=== PATIENT | female | born 1945 | race Caucasian/White ===

== ENCOUNTER 2020-02-08 09:33 | Outpatient (CLI) | payer MEDICARE, SELFPAY ==
--- NOTE | ~2020-02-08 | MM_ITS ---
EXAMINATION: MM screening [facility] BI w heri HISTORY: Screening mammogram TECHNIQUE: Craniocaudal and mediolateral oblique 3-D tomosynthesis images were obtained and synthetic 2-D images were generated. CAD analysis was submitted and interpreted. COMPARISON: 09/07/2017, 08/16/2016, 06/20/2015 BREAST PARENCHYMAL COMPOSITION: There are scattered areas of fibroglandular density. FINDINGS: There is no evidence of suspicious mass, calcification, or architectural distortion to sugg est malignancy in either breast. There has been no suspicious interval change. IMPRESSION: 1. No mammographic evidence of malignancy. 2. Recommend routine screening mammography in one year. BI-RADS Category 1: Negative Reviewed, dictated and finalized at location A.
== END 2020-02-08 09:34 | disposition home or self-care (01) ==
PROVIDERS: PCP Internal Medicine; Visit Provider Internal Medicine
DX: Z12.31 Encounter for screening mammogram for malignant neoplasm of breast (principal)
CPT/HCPCS: 77063; 77067

== ENCOUNTER 2022-11-24 11:26 | Outpatient (CLI) | payer MEDICARE, SELFPAY ==
--- NOTE | ~2022-11-24 | XR_ITS ---
EXAMINATION: XR hip RT min 2V DATE: 11/24/2022 11:54 INDICATION: Right hip pain TECHNIQUE: Two views of right hip were obtained. COMPARISON: 06/04/2019 FINDINGS: Bone alignment is normal. There is no fracture. The soft tissues are unremarkable. There is mild osteoarthritis of the hip. IMPRESSION: 1. Mild osteoarthritis of the hip. Reviewed, dictated and finalized at location B.
--- NOTE | ~2022-11-24 | XR_ITS ---
EXAMINATION: XR hand RT min 3V INDICATION: Right hand pain TECHNIQUE: Two views of the right hand are obtained. COMPARISON: 06/14/2017 FINDINGS: There is advanced osteoarthritis of the second, third, and fifth distal interphalangeal ghislaine nts and the fifth proximal interphalangeal joint, as well as at the triscaphe and first carpometacarp al joints, with interval worsening. There is mild to moderate osteoarthritis of the second third and fourth proximal interphalangeal joints and the fourth distal interphalangeal joint. No fracture is id entified. The soft tissues are unremarkable. IMPRESSION: 1. Polyarticular osteoarthritis with interval worsening. Reviewed, dictated and finalized at location B.
--- NOTE | ~2022-11-24 | XR_ITS ---
EXAMINATION: XR hand LT min 3V INDICATION: Left hand pain TECHNIQUE: Three views of the left hand are obtained COMPARISON: 06/14/2017 FINDINGS: There is advanced osteoarthritis at the second through fifth distal interphalangeal joints with interval worsening. There is also worsened severe osteoarthritis of the triscaphe joint. Moderat e osteoarthritis is present at the first carpometacarpal joint. The soft tissues are unremarkable. No fracture is identified. IMPRESSION: 1. Polyarticular osteoarthritis with interval worsening. Reviewed, dictated and finalized at location B.
== END 2022-11-24 11:27 | disposition home or self-care (01) ==
LOC: CHSIMG 11:30
PROVIDERS: PCP Internal Medicine; Visit Provider Internal Medicine
DX: M79.642 Pain in left hand (principal); M79.641 Pain in right hand; M25.551 Pain in right hip; M19.042 Primary osteoarthritis, left hand; M19.041 Primary osteoarthritis, right hand; M16.11 Unilateral primary osteoarthritis, right hip
CPT/HCPCS: 73130; 73502

== ENCOUNTER 2022-12-07 12:37 | Outpatient (CLI) | payer MEDICARE, SELFPAY ==
--- NOTE | ~2022-12-07 | XR_ITS ---
EXAMINATION: XR lg joint inject/asp w image DATE: 12/07/2022 13:35 INDICATION: Right hip pain TECHNIQUE: A time-out was performed to verify the patient's name, date of , and procedure to b e performed. The procedure including the risks, benefits, and alternatives was discussed with the pat ient. Risks discussed included bleeding and infection. The patient understood the risks and agreed to proceed. The skin overlying the right hip joint was prepped and draped in usual sterile fashion. A nesthetic was administered with 1% lidocaine subcutaneously. A 22 G needle was advanced under fluoro scopic guidance into the joint. Injection of 1 mL of Omnipaque 240 confirmed intra-articular positio n of the needle. Subsequently, injectate consisting of 5 mm a 3:1:1 mixture of 1% lidocaine: 4 mg/mL dexamethasone and 40 mg/mL Kenalog for a total dosage of 4 mg dexamethasone and 40 mg Kenalog was in stilled. Washout of contrast was seen confirming intra-articular administration. The needle was remov ed and the entry site was cleaned and dressed. There were no immediate complications. Fluoroscopy ex posure time was 0.1 minutes. The total number of images was 2. FINDINGS: Real-time fluoroscopy demonstrates the needle in the right hip joint. Patient's pain prior to procedure:12/08. Patient's pain following the procedure: 08/10. IMPRESSION: 1. Successful right hip joint injection of local anesthetic and steroid with decrease in the patient' s presenting pain. Reviewed, dictated and finalized at location A. IMPRESSION: 1. Successful right hip joint injection of local anesthetic and steroid with de crease in the patient's presenting pain.
== END 2022-12-07 12:38 | disposition home or self-care (01) ==
PROVIDERS: PCP Internal Medicine; Visit Provider Internal Medicine
DX: M25.551 Pain in right hip (principal)
CPT/HCPCS: 20610; 77002; J1100; J3301; Q9966

== ENCOUNTER 2023-04-19 13:01 | Outpatient (CLI) | payer MEDICARE, SELFPAY ==
[2023-04-19 13:42] LABS: Hematocrit 41.7 % (37.0-47.0); Hemoglobin 13.3 g/dL (12.0-15.0)
[2023-04-19 13:52] LABS: Albumin Level 4.5 g/dL (3.5-5.1); Estimated Glomerular Filt Rate > 60
[2023-04-19 14:05] LABS: Urine Cotinine NEGATIVE
== END 2023-04-19 13:02 | disposition home or self-care (01) ==
PROVIDERS: PCP Internal Medicine; Visit Provider Orthopaedic Surgery
DX: E78.5 Hyperlipidemia, unspecified (principal); I10 Essential (primary) hypertension; M16.11 Unilateral primary osteoarthritis, right hip; Z79.899 Other long term (current) drug therapy
CPT/HCPCS: 80307; 82040; 82565; 85014; 85018

== ENCOUNTER 2023-05-05 13:47 | Outpatient (CLI) | payer MEDICARE, SELFPAY ==
[2023-05-05 15:27] LABS: Basophils Percent Auto 0.2 % (0.2-1.2); Eosinophils Absolute Auto 0.3 K/mm3 (0-0.3); Eosinophils Percent Auto 2.4 % (0-4.4); Hematocrit 41.6 % (37.0-47.0); Hemoglobin 13.2 g/dL (12.0-15.0); Immature Granulocyte Absolute 0.06 K/mm3 (0.00-0.031); Immature Granulocyte Percent A 0.5 % (0-0.5); Lymphocytes Absolute Auto 1.75 K/mm3 (0.9-3.2); Lymphocytes Percent Auto 14.6 % (18.3-44.2); Mean Corpuscular HGB Conc 31.7 g/dl (32-36); Mean Corpuscular Hemoglobin 30.2 pg (26-34); Mean Corpuscular Volume 95.2 fl (80-100); Mean Platelet Volume 10.5 fl (7.4-10.4); Monocytes Absolute Auto 0.8 K/mm3 (0.1-0.6); Monocytes Percent Auto 6.6 % (2.6-8.5); Neutrophils Absolute Auto 9.1 K/mm3 (1.3-6.7); Neutrophils Percent Auto 75.7 % (45.5-73.1); Platelet Count Result 264 k/mm3 (150-375); Red Blood Count 4.37 M/mm3 (4.2-5.4); Red Cell Distribution Width 13.4 % (11.5-14.5)
[2023-05-05 15:30] LABS: Glucose 143 mg/dL (65-110)
[2023-05-05 18:24] LABS: Hemoglobin A1C 6.1 % (<5.7)
== END 2023-05-05 13:48 | disposition home or self-care (01) ==
PROVIDERS: PCP Internal Medicine; Visit Provider Orthopaedic Surgery
DX: M16.11 Unilateral primary osteoarthritis, right hip (principal); Z01.818 Encounter for other preprocedural examination
CPT/HCPCS: 36415; 82947; 83036; 85025; 87081

== ENCOUNTER 2023-05-30 01:22 | Day surgery (SDC) | payer MEDICARE, SELFPAY ==
[2023-05-05 14:19] VITALS: BMI 38.6
--- NOTE | 2023-05-05 14:40 | PC.NURSE ---
Report to the Outpatient Waiting Room, entrance under the green pavilion located off [facility], at time __1000 on date __05/30/23 . Planned Procedure Time: 1200 . Time changes happen often and if your time is changed the preop area will call you the afternoon before. - You and your visitor will be asked to self-screen and do not enter if you have any COVID symptoms. - A mask is optional within the hospital at this time. Patients may have clear liquids (water, carbonated beverages, clear teas, apple juice) until 3 hours prior to surgery with a maximum of 20 ounces. - No food from midnight until time of surgery - Infants may have breast milk until 4 hours before surgery, formula 6 hours prior to surgery. - Children will be allowed to drink immediately following surgery. If applicable, please bring a bottle or sippy cup to assist with drinking. Juice, water, soda, and popsicles are readily available. For infants on formula, please bring formula the day of surgery. Pacifiers are allowed. Take the following medications with a SIP of water the morning of surgery: ___DILTIAZEM.LEVOTHYROXINE DO NOT STOP ANY OF YOUR OTHER PRESCRIPTION MEDICATIONS PRIOR TO SURGERY ?EXCEPT THE FOLLOWING Medications to discontinue per physician _HOLD ELIQUIS 3 DAYS PRE OP PER DR BRICE. LAST DOSE 05/26/23 MAY CONTINUE ASPIRIN PER DR BRICE. ALL VITAMINS AND SUPPLEMENTS 3 DAYS PRE OP.LAST DOSE 05/26/23 Please no make-up, nail czech, hairspray, perfume, deodorant, or body powder the day of surgery. No jewelry (including any body piercings) or valuables the day of surgery, leave them at home. Please take a shower or bath the night before, or the morning of, surgery with an antibacterial soap. Wear comfortable, loose fitting clothing. Children are encouraged to wear pajamas. - Jewelry must be removed prior to entering the operating room. Rings and piercings that are not removed may be cut off. - The hospital will not accept responsibility for valuables. - Please leave all valuables, including medications, at home the day of surgery. If you are going home after surgery, a licensed marine engine driver must drive you home. - NO public transportation without another adult if you receive anesthesia. - We recommend that an adult stay with you for 24 hours following discharge. - We also recommend that you do not drive, make important decision, drink alcoholic beverages, or take any drugs that were not prescribed by your health care provider for at least 24 hours after your discharge time. For Pediatric surgeries, we recommend two adults accompany the child home. Follow any additional instructions given to you from your surgeon. If you or anyone in your household have experienced Covid symptoms in the past week, please notify your surgeon or the nurse liaison at the phone number below for possible testing. VERBAL AND WRITTEN instructions given to ___PATIENT and asked if any additional questions and then verbalized understanding. Patient advised to call surgeon office or pre surgery nurse liaison [phone] if any additional questions.
[2023-05-05 15:07] VITALS: BP 135/50; PULSE 71; RESP 18; TEMP 36.6; O2SAT 97
[2023-05-30] VITALS (14 sets, daily range): BP systolic 104–164; BP diastolic 52–85; PULSE 55–85; RESP 12–18; TEMP 36.2–37.1; O2SAT 93–96
--- NOTE | ~2023-05-30 | XR_ITS ---
EXAMINATION: XR hip RT min 2V DATE: 05/30/2023 15:22 INDICATION: Right total hip arthroplasty TECHNIQUE: 3 views right hip FINDINGS: There is a right total hip arthroplasty in expected position. Subcutaneous gas with soft t issue swelling are consistent with recent surgery. IMPRESSION: 1. Recent right total hip arthroplasty. Reviewed, dictated and finalized at location A.
[2023-05-30] MEDS: TRANEXAMIC ACID 1,000MG/ISO100 1,000 MG/100 ML BAG 200 MG IVPB (11:00)
[2023-05-30] MEDS: ACETAMINOPHEN 500 MG TABLET 1000 MG PO ×2 (11:00→17:49)
--- NOTE | 2023-05-30 12:02 | WPDHPUPDATE1 ---
History and Physical Update Update Date/Time: 05/30/23 12:02 History and Physical has been reviewed, including an updated exam of the patient. There are NO changes in the patient's condition. Risks, benefits, and alternatives have been discussed and questions answered. Patient agrees to proceed with procedure.
--- NOTE | 2023-05-30 12:12 | WPDANESEPPF ---
Anes - Initial Pre Proc Eval Procedure: Operation Date: 05/30/23 12:00 Proposed Procedures p Right Total Hip Arthroplasty - Wade Trevizo MD Date/Time: 05/30/23 12:12 Surgeon: Wade Trevizo MD Pre Op Diagnosis: primary oa right hip Patient Data Age: 78 Gender: F Height: 1.65 m Weight: 105.6 kg Last Vital Signs Temp 36.3 C L 05/30/23 11:30 Pulse 66 05/30/23 11:30 Resp 16 05/30/23 11:30 BP 164/71 H 05/30/23 11:30 Pulse Ox 96 05/30/23 11:30 O2 Del Method Room Air 05/30/23 11:30 Allergies Allergy/AdvReac Type Severity Reaction Status Date / Time tramadol AdvReac Intermediate Other Verified 05/30/23 11:52 ciprofloxacin AdvReac Unknown Diarrhea Verified 05/16/23 11:03 Home Medications Medication Instructions Recorded Confirmed Type apixaban 5 mg tablet (Eliquis) 5 mg PO BID 12/16/22 05/30/23 History celecoxib 200 mg capsule 200 mg PO DAILY 12/16/22 05/16/23 History diltiazem HCl 180 mg 180 mg PO BID 12/16/22 05/16/23 History capsule,extended release 24 hr (Cartia XT) ezetimibe 10 mg tablet 10 mg PO DAILY 12/16/22 05/16/23 History levothyroxine 50 mcg capsule 50 mcg PO DAILY 12/16/22 05/16/23 History losartan 50 mg-hydrochlorothiazide 1 tablet PO DAILY 12/16/22 05/16/23 History 12.5 mg tablet pantoprazole 40 mg tablet,delayed 40 mg PO BID 12/16/22 05/16/23 History release pravastatin 40 mg tablet 40 mg PO HS 12/16/22 05/16/23 History pumpkin seed extract-soy germ 300 1 cap PO BID 12/16/22 05/16/23 History mg capsule (Azo Bladder Control) aspirin 81 mg tablet,delayed 81 mg PO DAILY 05/05/23 05/30/23 History release (Adult Low Dose Aspirin) diphenhydramine 25 1 tablet PO HS PRN Insomnia 05/05/23 05/16/23 History mg-acetaminophen 500 mg tablet (Tylenol PM Extra Strength) vitamin A-vitamin C-vit E-min 1 tablet PO DAILY 05/05/23 05/16/23 History tablet Patient hx anesthesia problems: post op nausea/vomiting Family hx anesthesia problems: none Results Review: All pre-operative results and documents have been reviewed as part of the pre-operative evaluation. FOR[facility]LY [facility] Past Medical History Medical History Afib History of bruising easily History of stress test Hyperlipidemia Hypertension Surgical History Surgical History History of back surgery (~07/2022) History of total right knee replacement (~09/05/18) Family History Family History Mother Family history of diabetes mellitus in first degree relative Heart disease Cancer Social History Social History Smoking packs per day: 0.5 Smoking cigarettes per day: 10.0 Years smoked: 5 Smoking pack-years: 2.50 Smoking status: Former smoker Tobacco type: cigarettes Smoking end date: 08/01/79 Additional smoking assessment comments: DENIES ANY FORM OF TOBACCO USE Alcohol intake: never Lack of Transportation: No Lack of Food: Never True Current Housing: I Have Housing Concerned About Future Housing: No Difficulty Paying Gas/Electric Bills: No Difficulty Paying for Meds: No Currently Unemployed: No Education: High School Diploma/GED Difficulty w/ Childcare or Family Care: No Living arrangements: alone Spiritual care concerns: No Anes - Eval Final PreProcedure Day of Procedure 05/30/23 12:12 Patient weight: obese Heart: regular rate and rhythm Lungs: clear to auscultation Airway: Mallampati scale class II Neurological: alert and oriented Last oral intake: >/= 8 hours ASA classification: III Emergent: no Anesthetic plan: proceed Anesthesia type and monitoring: general ETT and standard monitoring Results Review: All pre-operative results and documents have been reviewed as part of the pre-operative evaluation. In
[2023-05-30] MEDS: ceFAZolin 2 GM/D5W 50 ML 2 GM/50 ML BAG IVPB ×2 (12:23→21:50)
--- NOTE | 2023-05-30 14:37 | SUR.OPER ---
PATIENT TO RESTROOM IN PREOP SHUFFLES AND NEEDS ASSISTANCE. FEET = +4 STRENGTH/+ SENSATION ALL TOES BILATERAL. STATED HER RIGHT LEG WAS AFFECTED BY HER BACK SURGERY. Ted MORRIS RN
[2023-05-30] MEDS: LACTATED RINGERS 1,000 ML 30 ML IV CONT ×2 (15:02)
[2023-05-30] MEDS: fentaNYL CITRATE INJ (*CRX) 100 MCG/2 ML VIAL 25 MCG IV PUSH ×2 (15:40→15:57)
[2023-05-30] MEDS: SENNA/DOCUSATE SODIUM TABLET 2 TAB PO (17:49)
[2023-05-30] MEDS: PANTOPRAZOLE 40 MG TABLET PO (17:49)
[2023-05-30] MEDS: dilTIAZem HCL CD 180 MG CAP.24HR PO (17:49)
--- NOTE | 2023-05-30 18:24 | W.PM.PROC2 ---
Procedure Note - Detailed Date of Procedure 05/30/23 Pre-op Diagnosis primary oa right hip Post-op Diagnosis Same Procedure Performed Right Total Hip Arthroplasty Surgeon Wade Trevizo MD Project Associate Judi Zelaya PA-C Anesthesia General Findings Satisfactory bone quality. Description of Procedure The patient was given preoperative antibiotics. A general anesthetic was administered. The patient was carefully placed in the lateral decubitus position on the PEG board. The shoulders and hips were carefully positioned for component and leg length positioning reference. The hip was prepped and draped in the usual sterile fashion. A longitudinal incision was created over the posterior aspect of the greater trochanter. Careful dissection was brought down through the deep fascia with electrocautery. A minimally invasive optimized posterior approach to the hip was performed. The short external rotators and capsule were taken down in an L-shaped capsulotomy. The tissue was tagged for later repair using number 2 high strength suture. The femoral neck was measured and taken in situ. The femoral head was removed. The acetabulum was carefully exposed. The inferior capsule was released. The labrum was resected. The acetabulum was sequentially reamed to the intended cup size. The cup was impacted into position with excellent press-fit. Typical anatomic landmarks, including the bony contact points as well as the inferior transverse acetabular ligament were used to confirm cup positioning with preoperative templating. Attention was turned to the femur, which was carefully exposed. The hip was reamed and then broached sequentially. Excellent press-fit was obtained with the broach. The hip was trialed. Measurements were utilized, including the lesser trochanter as well as the center of the femoral head and the tip of the trochanter, and excellent assessment of the offset and leg lengths were confirmed. The real component was impacted into position. Trialing confirmed appropriate leg length and offset with soft tissue balancing as well apparent feel of the leg, both at the knee and the heel. Soft tissues were assessed using the the iliotibial band. Reduction of the posterior capsule and external rotators were also used as a secondary assessment. The hip was copiously irrigated with pulsatile lavage antibiotic solution periodically throughout the procedure. The real components were then assembled and reduced. The hip was stable throughout typical maneuvers, including extension, external rotation to 70 degrees, the position of sleep as well as flexion to 90 degrees with internal rotation past 45 degrees. The shake test confirmed stability without impingement. Osteophytes were removed as necessary. The short external rotators and capsule were repaired back to the posterior trochanter through drill holes. The deep fascia was repaired with running number 2 Quill suture, followed by 0 Stratafix suture and 2-0 Stratafix suture in the dermis. Steri-Strips were placed on the skin, followed by a sterile silver occlusive dressing. There were no complications. Meticulous hemostasis was maintained with the AquaMantys device. The patient was brought to the recovery room in stable condition. There were no complications. Physician accounting manager assistant controller, Judi Zelaya PA-C, required for surgery; including patient positioning, draping, tissue retraction, maintaining instrument position, hip dislocation/ relocation, wound closure, and dressing placement. Implants The Accolade II hip stem, 127 degree size 7 , was utilized with excellent press-fit. The 50 mm Trident II acetabular component was impacted with excellent press-fit stability. 36 mm polyethylene liner. Alpha code D. the +2.5, 36 mm Biolox ceramic femoral head was utilized. Estimated Blood Loss -200.0 Drains No Packing No Pathology None sent Complications No immediate complications Condition Stable Dispos
[2023-05-30] MEDS: PRAVASTATIN SODIUM 20 MG TABLET 40 MG PO (21:50)
[2023-05-31 01:06] VITALS: BP 138/75; PULSE 92; RESP 16; TEMP 36.9; O2SAT 92
[2023-05-31] MEDS: ceFAZolin 2 GM/D5W 50 ML 2 GM/50 ML BAG IVPB ×2 (03:05→11:00)
[2023-05-31] MEDS: LEVOTHYROXINE SODIUM 50 MCG TABLET PO (05:42)
[2023-05-31] MEDS: ACETAMINOPHEN 500 MG TABLET 1000 MG PO ×2 (05:43→11:04)
[2023-05-31 06:00] VITALS: BP 179/66; PULSE 78; RESP 16; TEMP 36.9; O2SAT 95
[2023-05-31 08:00] VITALS: BP 122/78; PULSE 81; RESP 18; TEMP 36.1; O2SAT 96
[2023-05-31] MEDS: dilTIAZem HCL CD 180 MG CAP.24HR PO (08:46)
[2023-05-31] MEDS: SENNA/DOCUSATE SODIUM TABLET 2 TAB PO (08:46)
[2023-05-31] MEDS: THERAPEUTIC MULTIVITAMINS/MINERALS TAB (*BKC) 1 TABLET PO (08:46)
[2023-05-31] MEDS: EZETIMIBE 10 MG TABLET PO (08:46)
[2023-05-31] MEDS: ASPIRIN 81 MG ENTERIC TABLET PO (08:46)
[2023-05-31] MEDS: CELECOXIB 200 MG CAPSULE PO (08:46)
[2023-05-31] MEDS: hydroCHLOROthiazide 12.5 MG CAPSULE PO (08:46)
[2023-05-31] MEDS: predniSONE 5 MG TABLET PO (08:46)
[2023-05-31] MEDS: PANTOPRAZOLE 40 MG TABLET PO (08:46)
[2023-05-31] MEDS: polyethylene glycoL 3350 17 GM POWD.PACK PO (08:47)
[2023-05-31] MEDS: LOSARTAN POTASSIUM 50 MG TABLET PO (08:57)
[2023-05-31 09:12] LABS: Basophils Percent Auto 0.1 % (0.2-1.2); Eosinophils Percent Auto 0.1 % (0-4.4); Hematocrit 34.3 % (37.0-47.0); Hemoglobin 10.9 g/dL (12.0-15.0); Immature Granulocyte Absolute 0.13 K/mm3 (0.00-0.031); Immature Granulocyte Percent A 0.7 % (0-0.5); Lymphocytes Absolute Auto 1.26 K/mm3 (0.9-3.2); Lymphocytes Percent Auto 6.9 % (18.3-44.2); Mean Corpuscular HGB Conc 31.8 g/dl (32-36); Mean Corpuscular Hemoglobin 29.7 pg (26-34); Mean Corpuscular Volume 93.5 fl (80-100); Mean Platelet Volume 10.7 fl (7.4-10.4); Monocytes Absolute Auto 1.8 K/mm3 (0.1-0.6); Monocytes Percent Auto 9.7 % (2.6-8.5); Neutrophils Absolute Auto 15.1 K/mm3 (1.3-6.7); Neutrophils Percent Auto 82.5 % (45.5-73.1); Platelet Count Result 238 k/mm3 (150-375); Red Blood Count 3.67 M/mm3 (4.2-5.4); Red Cell Distribution Width 13.6 % (11.5-14.5); White Blood Count 18.3 K/mm3 (4.5-10.0)
[2023-05-31 09:16] LABS: Anion Gap 5 mmol/L (8-16); Blood Urea Nitrogen 18 mg/dL (7-17); Calcium 8.9 mg/dL (8.4-10.2); Carbon Dioxide 32 mmol/L (22-30); Chloride 99 mmol/L (98-107); Estimated CRCL calculation 81 ml/min; Estimated Glomerular Filt Rate > 60; Glucose 120 mg/dL (65-110); Potassium 4.3 mmol/L (3.4-5.0); Sodium 136 mmol/L (137-145)
--- NOTE | 2023-05-31 10:07 | PM.DS ---
DS: Admitting Diagnosis Discharge Date 05/31/23 Admitting Diagnosis OA Right hip DS: Discharge Diagnosis Discharge Diagnosis (1) Status post total hip replacement, right: Code(s): Z96.641 - Presence of right artificial hip joint Status: Acute Assessment and Plan: Postop day 1: Total hip arthroplasty. Patient tolerated procedure well. No complications. Pain manageable with pain medication. No numbness or tingling. We had a lengthy discussion regarding postoperative wound care, limitations, expectations, and exercises. Patient shows good understanding. Patient has had initial physical therapy and is tolerating it well. DVT prophylaxis: Take Eliquis once daily for 1 week then resume twice a day dose. Short frequent walks. Pain medication: Percocet. Celebrex Patient has followup appointment with Dr. Trevizo in 3 weeks DS: Summary Hospital Course Reason for hospitalization: Total hip arthroplasty Hospital Course: Patient tolerated procedure well. Has had initial PT/OT and made good progress. Status at Discharge Functional status at discharge: uses cane/walker Overall status at discharge: patient is progressing back to baseline Time Spent with Patient Time attestation: Total time spent providing and/or coordinating discharge services: Exam Narrative: Overweight 78 y/o female. Resting comfortably in a chair. Wearing compression socks bilaterally. Dressing dry and intact with no drainage. Mild swelling. No ecchymosis. No erythema. No hematoma. Range of motion limited due to pain. Calf nontender. Thigh nontender. Neurologic status intact. No varicosities. Distal pulses palpable. DS: Data Data Completed and Pending Labs on day of discharge: Labs from last 24 hours 05/31/23 05/30/23 08:39 11:21 WBC 18.3 H RBC 3.67 L Hgb 10.9 L Hct 34.3 L MCV 93.5 MCH 29.7 MCHC 31.8 L RDW 13.6 Plt Count 238 MPV 10.7 H Immature Gran % (Auto) 0.7 H Neut % (Auto) 82.5 H Lymph % (Auto) 6.9 L Whiteside % (Auto) 9.7 H Eos % (Auto) 0.1 Baso % (Auto) 0.1 L Lymph # (Auto) 1.26 Whiteside # (Auto) 1.8 H Eos # (Auto) 0.0 Baso # (Auto) 0.0 Abs Immat Gran (auto) 0.13 H Absolute Neuts (auto) 15.1 H Absolute Nucleated RBC 0.0 Nucleated RBC % 0.0 Sodium 136 L Potassium 4.3 Chloride 99 Carbon Dioxide 32 H Anion Gap 5 L BUN 18 H Creatinine 0.60 L Estim Creat Clear Calc 81 Estimated GFR > 60 Glucose 120 H Calcium 8.9 Blood Type A Positive Antibody Screen Negative Discharge Plan Discharge Patient Disposition: Home, Self-Care Discharge Instructions: See green instruction sheets Stand Alone Forms: General Discharge Instructions Follow-up/Referrals: Judi Zelaya PA [Physician Residential Assistant] - Discharge Medications: New prednisone 5 mg tablet 5 mg PO DAILY 21 Days Qty: 21 0RF oxycodone-acetaminophen 5-325 mg tablet 1 - 2 tablet PO Q4-6H MDD 6 PRN (Reason: pain) Qty: 30 0RF Continued levothyroxine 50 mcg capsule 50 mcg PO DAILY losartan-hydrochlorothiazide 50-12.5 mg tablet 1 tablet PO DAILY pantoprazole 40 mg tablet,delayed release (DR/EC) 40 mg PO BID diltiazem HCl [Cartia XT] 180 mg capsule,extended release 24hr 180 mg PO BID celecoxib 200 mg capsule 200 mg PO DAILY Azo Bladder Control 300 mg capsule 1 cap PO BID pravastatin 40 mg tablet 40 mg PO HS ezetimibe 10 mg tablet 10 mg PO DAILY diphenhydramine-acetaminophen [Tylenol PM Extra Strength] 25-500 mg Tablet 1 tablet PO HS PRN (Reason: Insomnia) aspirin [Adult Low Dose Aspirin] 81 mg Tablet,Delayed Release (Dr/Ec) 81 mg PO DAILY vitamin A-vitamin C-vit E-min Tablet 1 tablet PO DAILY Held Eliquis 5 mg tablet 5 mg PO BID
[2023-05-31 12:00] VITALS: BP 144/68; PULSE 93; RESP 20; TEMP 36.2; O2SAT 97
== END 2023-05-31 15:13 | disposition home or self-care (01) ==
LOC: ANHSURGERY 14:59 → ANH3MEDSUR 16:20
PROVIDERS: Physician Assistant Surgical; PCP Internal Medicine; Visit Provider Orthopaedic Surgery
PROC: (CPT 27130; principal; 2023-05-30 12:00)
DX: M16.11 Unilateral primary osteoarthritis, right hip (principal); I48.91 Unspecified atrial fibrillation; E78.5 Hyperlipidemia, unspecified; I10 Essential (primary) hypertension; E66.9 Obesity, unspecified; Z68.38 Body mass index [BMI] 38.0-38.9, adult; Z79.82 Long term (current) use of aspirin; Z79.01 Long term (current) use of anticoagulants; Z87.891 Personal history of nicotine dependence
CPT/HCPCS: 27130; 36415; 73502; 80048; 85025; 86850; 86900; 86901; 97110; 97161; 97165; 97530; 97535; A9270; C1713; C1776; J0171; J0690; J1100; J1885; J2270; J2405; J2704; J2795; J3010; J7120; J7512

== ENCOUNTER 2023-07-01 03:34 | Day surgery (SDC) | payer MEDICARE, SELFPAY ==
[2023-06-29 15:00] VITALS: BMI 37.5
--- NOTE | 2023-06-29 15:14 | PC.NURSE ---
Report to the Outpatient Waiting Room, entrance under the green pavilion located off [facility], at time __1 PM on date ___07/01/23____. Planned Procedure Time: ___3 PM . Time changes happen often and if your time is changed the preop area will call you the afternoon before. - You and your visitor will be asked to self-screen and do not enter if you have any COVID symptoms. - A mask is optional within the hospital at this time. Patients may have clear liquids (water, carbonated beverages, clear teas, apple juice) until 3 hours prior to surgery (1200 NOON) with a maximum of 20 ounces. - No food from midnight until time of surgery - Infants may have breast milk until 4 hours before surgery, infant formula 6 hours prior to surgery. - Children will be allowed to drink immediately following surgery. If applicable, please bring a bottle or sippy cup to assist with drinking. Juice, water, soda, and popsicles are readily available. For infants on formula, please bring formula the day of surgery. Pacifiers are allowed. Take the following medications with a SIP of water the morning of surgery: _CELECOXIB, CEPHALEXIN, DILTIAZEM, LEVOTHYROXINE, & PAIN PILL IF NEEDED_ DO NOT STOP ANY OF YOUR OTHER PRESCRIPTION MEDICATIONS PRIOR TO SURGERY ?EXCEPT THE FOLLOWING Medications to discontinue per DR. NYE - _CALL OFFICE REGARDING ELIQUIS, HOLD ASPIRIN OF TODAY 06/29/23 Medications to discontinue per ANESTHESIA -_HOLD PUMPKIN SEED EXTRACT OF TODAY_ Please no make-up, nail amharic, hairspray, perfume, deodorant, or body powder the day of surgery. No jewelry (including any body piercings) or valuables the day of surgery, leave them at home. Please take a shower or bath the night before, or the morning of, surgery with an antibacterial soap. Wear comfortable, loose fitting clothing. Children are encouraged to wear pajamas. - Jewelry must be removed prior to entering the operating room. Rings and piercings that are not removed may be cut off. - The hospital will not accept responsibility for valuables. - Please leave all valuables, including medications, at home the day of surgery. If you are going home after surgery, a licensed subway train driver must drive you home. - NO public transportation without another adult if you receive anesthesia. - We recommend that an adult stay with you for 24 hours following discharge. - We also recommend that you do not drive, make important decision, drink alcoholic beverages, or take any drugs that were not prescribed by your health care provider for at least 24 hours after your discharge time. For Pediatric surgeries, we recommend two adults accompany the child home. Follow any additional instructions given to you from your surgeon. If you or anyone in your household have experienced Covid symptoms in the past week, please notify your surgeon or the nurse liaison at the phone number below for possible testing. Telephone instructions given to ___PT and asked if any additional questions and then verbalized understanding. Patient advised to call surgeon office or pre surgery nurse liaison [phone] if any additional questions.
--- NOTE | 2023-06-30 14:49 | WPDANESEPPF ---
Anes - Initial Pre Proc Eval Procedure: Operation Date: 07/01/23 15:00 Proposed Procedures p Right Total Hip Arthroplasty Washout - Wade Trevizo MD Date/Time: 06/30/23 14:49 Surgeon: Wade Trevizo MD Pre Op Diagnosis: right hip wound infection Patient Data Age: 78 Gender: F Height: 1.68 m Weight: 105.6 kg Allergies Allergy/AdvReac Type Severity Reaction Status Date / Time tramadol AdvReac Intermediate EUPHORIA Verified 07/01/23 13:31 ciprofloxacin AdvReac Unknown Diarrhea Verified 07/01/23 13:31 Home Medications Medication Instructions Recorded Confirmed Type apixaban 5 mg tablet (Eliquis) 5 mg PO BID 12/16/22 07/01/23 History celecoxib 200 mg capsule 200 mg PO DAILY 12/16/22 07/01/23 History diltiazem HCl 180 mg 180 mg PO BID 12/16/22 07/01/23 History capsule,extended release 24 hr (Cartia XT) ezetimibe 10 mg tablet 10 mg PO DAILY 12/16/22 07/01/23 History levothyroxine 50 mcg capsule 50 mcg PO DAILY 12/16/22 07/01/23 History losartan 50 mg-hydrochlorothiazide 1 tablet PO DAILY 12/16/22 07/01/23 History 12.5 mg tablet pantoprazole 40 mg tablet,delayed 40 mg PO BID 12/16/22 07/01/23 History release pravastatin 40 mg tablet 40 mg PO HS 12/16/22 07/01/23 History pumpkin seed extract-soy germ 300 1 cap PO BID 12/16/22 07/01/23 History mg capsule (Azo Bladder Control) aspirin 81 mg tablet,delayed 81 mg PO DAILY 05/05/23 07/01/23 History release (Adult Low Dose Aspirin) diphenhydramine 25 1 tablet PO HS PRN Insomnia 05/05/23 07/01/23 History mg-acetaminophen 500 mg tablet (Tylenol PM Extra Strength) oxycodone-acetaminophen 5 mg-325 1 - 2 tablet PO Q4-6H PRN pain #30 05/30/23 06/29/23 Rx mg tablet tabs Patient hx anesthesia problems: none Family hx anesthesia problems: none Results Review: All pre-operative results and documents have been reviewed as part of the pre-operative evaluation. [facility] Past Medical History Medical History (Updated 06/30/23 @ 14:49 by Juan M Banks DO) Afib CAD (coronary artery disease) History of bruising easily History of stress test Hyperlipidemia Hypertension Hypothyroidism Surgical History Surgical History (Updated 06/30/23 @ 14:49 by Juan M Banks DO) History of back surgery (~07/2022) History of coronary artery stent placement , 2021 History of total replacement of right hip (~05/30/23) History of total right knee replacement (~09/05/18) Family History Family History Mother Family history of diabetes mellitus in first degree relative Heart disease Cancer Social History Social History Smoking packs per day: 0.5 Smoking cigarettes per day: 10.0 Years smoked: 5 Smoking pack-years: 2.50 Smoking status: Former smoker Tobacco type: cigarettes Second hand tobacco smoke exposure: No Smoking end date: 08/01/79 Additional smoking assessment comments: DENIES ANY FORM OF TOBACCO USE Alcohol intake: never Substance use: never Substance use type: does not use Lack of Transportation: No Lack of Food: Never True Current Housing: I Have Housing Concerned About Future Housing: No Difficulty Paying Gas/Electric Bills: No Difficulty Paying for Meds: No Currently Unemployed: No Education: High School Diploma/GED Difficulty w/ Childcare or Family Care: No Living arrangements: alone Spiritual care concerns: No Anes - Eval Final PreProcedure Day of Procedure 06/30/23 14:49 Patient weight: obese Heart: regular rate and rhythm Lungs: clear to auscultation Airway: Mallampati scale class II Neurological: alert and oriented Last oral intake: >/= 8 hours ASA classification: III Emergent: no Anesthetic plan: proceed Anesthesia type and monitoring: general ETT and standard monitoring Results Review: All pre-operative results and documents have been r
[2023-07-01] VITALS (10 sets, daily range): BP systolic 118–153; BP diastolic 50–93; PULSE 61–82; RESP 12–20; TEMP 36.1–37.1; O2SAT 92–100
[2023-07-01] MEDS: ACETAMINOPHEN 500 MG TABLET 1000 MG PO ×2 (13:41→20:54)
[2023-07-01] MEDS: LACTATED RINGERS 1,000 ML 30 ML IV CONT ×2 (13:56→17:18)
[2023-07-01] MEDS: KETOROLAC 15 MG/ML VIAL (*BKC) IV PUSH (14:30)
--- NOTE | 2023-07-01 14:56 | WPDHPUPDATE1 ---
History and Physical Update Update Date/Time: 07/01/23 14:56 History and Physical has been reviewed, including an updated exam of the patient. There are NO changes in the patient's condition. Risks, benefits, and alternatives have been discussed and questions answered. Patient agrees to proceed with procedure.
[2023-07-01] MEDS: ceFAZolin 2 GM/D5W 50 ML 2 GM/50 ML BAG IVPB ×2 (15:04→23:22)
[2023-07-01] MEDS: VANCOMYCIN HCL 1,000 MG VIAL 1000 MG TOPICAL (15:49)
--- NOTE | 2023-07-01 17:35 | P.OP_ITS ---
Procedure Note - Detailed Date of Procedure 07/01/23 Pre-op Diagnosis Right hip wound dehiscence, s/p total hip arthroplasty. Post-op Diagnosis Same Procedure Performed Irrigation and debridement right hip wound with acetabular polyethylene liner and femoral head exchange. Surgeon Wade Trevizo MD Supervisor Print Line Judi Zelaya PA-C Anesthesia General Indications Persistent right hip wound drainage despite local wound care. Findings Morbid obesity particularly at the area of the hip incision. Moderate seroma with deep fascia wound dehiscence. 2 deep cultures taken. Description of Procedure The patient was given preoperative antibiotics. A general anesthetic was administered. The patient was carefully placed in the lateral decubitus position on the PEG board. The shoulders and hips were carefully positioned for component and leg length positioning reference. The hip was prepped and draped in the usual sterile fashion. A previous longitudinal incision was opened over the posterior aspect of the greater trochanter. The three areas of skin breakdown were ellipsed. There was of moderate size fluid pocket in the center of the wound in the deep tissues. There was no sign of purulence. Suture material was removed. Debridement was carried out with the rongeur as necessary. The tissue quality was very good. The deep fascia was clearly disrupted. The greater trochanter was exposed. The superior part of the posterior capsule repair was intact. This was opened and the femoral head dislocated. The ceramic ball was removed and polyethylene liner similarly remov ed. There were no signs of infection. All loose material and film around the femoral neck was removed. The hip was copiously irrigated throughout the procedure with 6 L of normal saline. The hip was soaked with dilute Betadine solution for 3 minutes at this point. Thorough irrigation was performed and a new polyethylene liner was replaced. The hip was trialed and found to remain quite stable.The hip was stable throughout typical maneuvers, including extension, external rotation to 70 degrees, the position of sleep as well as flexion to 90 degrees with internal rotation past 45 degrees. The shake test confirmed stability without impingement. Thus a + 2.5 mm ceramic ball was replaced. 1 g of vancomycin powder was distributed between the undersurface of the polyethylene liner and throughout the hip. The deep fascia was repaired with interrupted #2 PDS absorbable monofilament suture, followed by running #1 Stratafix PDS suture. The deep tissues were closed in layers with 0 PDS and 2-0 PDS suture. [place] were placed in the skin. The Prevena negative pressure dressing was applied. There were no complications. Meticulous hemostasis was maintained. The patient was brought to the recovery room in stable condition. There were no complications. Implants Vacherie Trident x3 acetabular ploythylene insert alpha code D. 36mm inner diameter. Biolox delta Ceramic V40 femoral head. 36mm +2.5 mm. Estimated Blood Loss 50 Pathology Other (gram stain few WBC. No organisms.) Complications No immediate complications Condition Stable Disposition PACU [facility] Billing Surgery - Charge Forward: Surgery Billing
--- NOTE | 2023-07-01 18:05 | PC.NURSE ---
Patient arrived to [facility] Room 343 from OR at 1803.
[2023-07-01] MEDS: PANTOPRAZOLE 40 MG TABLET PO (20:54)
[2023-07-01] MEDS: PRAVASTATIN SODIUM 20 MG TABLET 40 MG PO (20:55)
[2023-07-01] MEDS: dilTIAZem HCL CD 180 MG CAP.24HR PO (20:55)
[2023-07-01] MEDS: SENNA/DOCUSATE SODIUM TABLET 2 TAB PO (20:55)
--- NOTE | 2023-07-02 00:35 | PC.NURSE ---
1220:NOTED [facility] PUMP TO HAVE CAUTION LIGHT ON AND DOUBLE BEEP. PER GUIDE [facility] SUPPORT WAS CALLED. AUTOMATED SYSTEM WITHOUT LIVE STORAGE MANAGEMENT ARCHITECT. CALL BACK REQUESTED.
--- NOTE | 2023-07-02 01:17 | PC.NURSE ---
RETURN CALL FROM [facility]. BEDSIDE TROUBLESHOOTING REVEALED A BLOCKAGE IN SYSTEM. PER REP A REPLACEMENT PART [id number] IS REQUIRED TO GET SYSTEM WORKING PROPERLY. SUCTION LOST DUE TO DISCONNECT WHILE TROUBLESHOOTING. DIRECTOR MEDICAID NOTIFIED OF REPLACEMENT PART NEEDED LOCATED IN [place].
[2023-07-02] MEDS: ACETAMINOPHEN 500 MG TABLET 1000 MG PO ×2 (01:47→08:35)
--- NOTE | 2023-07-02 02:21 | PC.NURSE ---
EXECUTIVE ADMIN HERE TO ACCESS DUE TO UNABLE TO FIND SAID REPLACEMENT PART. UNIT STILL ALARMING. SUCTION POSITIVE NOTED BY FLATTENED DRESSING.
[2023-07-02 03:37] VITALS: BP 132/84; PULSE 85; RESP 20; TEMP 36.9; O2SAT 94
[2023-07-02 06:05] LABS: Basophils Percent Auto 0.2 % (0.2-1.2); Eosinophils Absolute Auto 0.5 K/mm3 (0-0.3); Eosinophils Percent Auto 4.5 % (0-4.4); Hematocrit 31.2 % (37.0-47.0); Hemoglobin 9.5 g/dL (12.0-15.0); Immature Granulocyte Absolute 0.04 K/mm3 (0.00-0.031); Immature Granulocyte Percent A 0.4 % (0-0.5); Lymphocytes Absolute Auto 1.18 K/mm3 (0.9-3.2); Lymphocytes Percent Auto 11.8 % (18.3-44.2); Mean Corpuscular HGB Conc 30.4 g/dl (32-36); Mean Corpuscular Hemoglobin 28.7 pg (26-34); Mean Corpuscular Volume 94.3 fl (80-100); Mean Platelet Volume 10.4 fl (7.4-10.4); Monocytes Absolute Auto 0.8 K/mm3 (0.1-0.6); Monocytes Percent Auto 8.3 % (2.6-8.5); Neutrophils Absolute Auto 7.5 K/mm3 (1.3-6.7); Neutrophils Percent Auto 74.8 % (45.5-73.1); Platelet Count Result 201 k/mm3 (150-375); Red Blood Count 3.31 M/mm3 (4.2-5.4); Red Cell Distribution Width 14.1 % (11.5-14.5)
[2023-07-02 06:14] LABS: Anion Gap 3 mmol/L (8-16); Blood Urea Nitrogen 15 mg/dL (7-17); Calcium 8.2 mg/dL (8.4-10.2); Carbon Dioxide 31 mmol/L (22-30); Chloride 102 mmol/L (98-107); Estimated CRCL calculation 73 ml/min; Estimated Glomerular Filt Rate > 60; Glucose 124 mg/dL (65-110); Potassium 3.9 mmol/L (3.4-5.0); Sodium 136 mmol/L (137-145)
[2023-07-02] MEDS: ceFAZolin 2 GM/D5W 50 ML 2 GM/50 ML BAG IVPB (06:34)
[2023-07-02] MEDS: LEVOTHYROXINE SODIUM 50 MCG TABLET PO (06:34)
--- NOTE | 2023-07-02 07:35 | PC.NURSE ---
called diet and nutrition with a.m. meal of choice.
[2023-07-02] MEDS: SENNA/DOCUSATE SODIUM TABLET 2 TAB PO (08:36)
[2023-07-02] MEDS: LOSARTAN POTASSIUM 50 MG TABLET PO (08:36)
[2023-07-02] MEDS: hydroCHLOROthiazide 12.5 MG CAPSULE PO (08:36)
[2023-07-02] MEDS: PANTOPRAZOLE 40 MG TABLET PO (08:36)
[2023-07-02] MEDS: CELECOXIB 200 MG CAPSULE PO (08:36)
[2023-07-02] MEDS: dilTIAZem HCL CD 180 MG CAP.24HR PO (08:36)
[2023-07-02] MEDS: polyethylene glycoL 3350 17 GM POWD.PACK PO (08:36)
[2023-07-02] MEDS: EZETIMIBE 10 MG TABLET PO (08:36)
[2023-07-02 08:50] VITALS: BP 149/68; PULSE 78
[2023-07-02 13:51] VITALS: BP 124/46; PULSE 80; RESP 16; TEMP 36.5; O2SAT 96
--- NOTE | 2023-07-02 14:51 | PM.PNORT ---
Progress Note: A&P Assessment and Plan (1) Surgical wound dehiscence: Qualifiers: Encounter type: initial encounter Qualified Code(s): T81.31XA - Disruption of external operation (surgical) wound, not elsewhere classified, initial encounter Code(s): T81.31XA - Disruption of external operation (surgical) wound, not elsewhere classified, initial encounter Status: Acute (2) Wound infection after surgery: Code(s): T81.49XA - Infection following a procedure, other surgical site, initial encounter Status: Acute (3) Status post total hip replacement, right: Code(s): Z96.641 - Presence of right artificial hip joint Status: Acute Plan Patient is comfortable postoperative day 1. She has mild expected soreness. Afebrile. WBC 10. Hbg 9.5. Vital signs stable. Dressing intact. No erythema or significant thigh swelling. The small capacity wound suction canister is full. No distal edema. Calf nontender. Anterior tibialis and extensor longus strength normal. Doing well after wound debridement and primary closure, including the deep fascia. We will exchange the suction canister and allow the patient to be discharged home. Gram stain was negative. The tissues appeared quite healthy without evidence of deep infection. Will resume her previous Eliquis dosing. Will continue on Keflex extended prophylactic antibiotics as a precaution. Subjective Subjective Date/Time Seen: 07/02/23 14:51 Objective Data Vital Signs Vital Signs: Vital Signs - 24 hr 07/01/23 17:18 07/01/23 17:30 07/01/23 17:45 Temperature 36.3 C L Pulse Rate 80 78 74 Respiratory Rate 14 18 20 Blood Pressure 138/72 125/69 122/50 L Pulse Oximetry 100 95 95 Oxygen Delivery Simple Face Mask Room Air Room Air Oxygen Flow Rate 10 07/01/23 17:50 07/01/23 18:10 07/01/23 18:25 Temperature 36.1 C L 36.3 C L Pulse Rate 63 63 61 Respiratory Rate 12 16 16 Blood Pressure 118/56 L 148/65 H 149/68 H Pulse Oximetry 95 92 93 Oxygen Delivery Room Air Oxygen Flow Rate 07/01/23 18:56 07/01/23 20:00 07/01/23 23:00 Temperature 36.1 C L 36.2 C L Pulse Rate 61 71 Respiratory Rate 16 16 Blood Pressure 149/68 H 119/58 L Pulse Oximetry 93 94 Oxygen Delivery Room Air Oxygen Flow Rate 07/01/23 23:37 07/02/23 03:37 07/02/23 08:50 Temperature 37.1 C 36.9 C Pulse Rate 82 85 Respiratory Rate 18 20 Blood Pressure 129/93 H 132/84 Pulse Oximetry 95 94 Oxygen Delivery Room Air Oxygen Flow Rate 07/02/23 08:50 07/02/23 09:26 07/02/23 13:34 Temperature Pulse Rate 78 Respiratory Rate Blood Pressure 149/68 H Pulse Oximetry Oxygen Delivery Room Air Room Air Oxygen Flow Rate 07/02/23 13:51 Temperature 36.5 C Pulse Rate 80 Respiratory Rate 16 Blood Pressure 124/46 L Pulse Oximetry 96 Oxygen Delivery Oxygen Flow Rate Intake/Output Intake/Output: Intake & Output 06/29/23 06/30/23 07/01/23 07/02/23 23:59 23:59 23:59 23:59 Intake Total 200 620 Balance 200 620 Meds/Results Medications: Active Medications Generic Name Dose Route Start Last Admin Trade Name Freq PRN Reason Stop Dose Admin Acetaminophen 1,000 mg 07/01/23 20:00 07/02/23 08:35 Acetaminophen 500 Mg Tablet PO 1,000 mg Q6H SULMA Administration Apixaban 2.5 mg 07/02/23 21:00 Apixaban 2.5 Mg Tablet PO Q12HR SULMA Celecoxib 200 mg 07/02/23 09:00 07/02/23 08:36 Celecoxib 200 Mg Capsule PO 200 mg DAILY SULMA Administration Cyclobenzaprine HCl 10 mg 07/01/23 17:52 Cyclobenzaprine Hcl 10 Mg Tablet PO Q8H PRN Muscle Spasm Diltiazem HCl 180 mg 07/01/23 21:00 07/02/23 08:36 Diltiazem Hcl Cd 180 Mg Cap.24hr PO 180 mg Q12HR SULMA Administration Diphenhydramine HCl 25 mg 07/01/23 17:52 Diphenhydramine Hcl Inj 50 Mg/Ml Vial IV PUSH Q6H PRN Itching Ezetimibe 10 mg 07/02/23 09:00 07/02/23 08:36 Ezetimibe 10 Mg Tablet PO
== END 2023-07-02 15:46 | disposition home or self-care (01) ==
LOC: ANHSURGERY 17:26 → ANH3MED 17:57
PROVIDERS: Physician Assistant Surgical; PCP Internal Medicine; Visit Provider Orthopaedic Surgery
PROC: (CPT 27130; principal; 2023-07-01 15:00)
DX: T81.31XA Disruption of external operation (surgical) wound, not elsewhere classified, initial encounter (principal); T81.49XA Infection following a procedure, other surgical site, initial encounter; Y79.2 Prosthetic and other implants, materials and accessory orthopedic devices associated with adverse incidents; Z87.891 Personal history of nicotine dependence; I48.91 Unspecified atrial fibrillation; E78.5 Hyperlipidemia, unspecified; I10 Essential (primary) hypertension; Z96.641 Presence of right artificial hip joint; Z96.651 Presence of right artificial knee joint; E66.01 Morbid (severe) obesity due to excess calories; Z68.39 Body mass index [BMI] 39.0-39.9, adult
CPT/HCPCS: 27134; 36415; 80048; 85025; 87070; 87075; 87205; 97161; 97165; A9270; J0330; J0690; J1885; J2250; J2405; J2704; J3010; J3370; J7120

== ENCOUNTER 2023-07-15 15:06 | Outpatient (CLI) | payer MEDICARE, SELFPAY ==
--- NOTE | ~2023-07-15 | XR_ITS ---
EXAMINATION: XR hip RT 2V w AP pelvis INDICATION: Patient status post right hip replacement TECHNIQUE: AP view the pelvis and two views of the right hip are obtained. COMPARISON: 06/17/2023 FINDINGS: There are changes of right hip arthroplasty. No evidence of hardware failure or loosening. Alignment is normal. There is no fracture. There are phleboliths of the left pelvis. There are partia lly imaged changes of lumbar fusion. IMPRESSION: 1. Changes of right hip arthroplasty without acute abnormality. Reviewed, dictated and finalized at location B. GE CONTROL MANAGER
== END 2023-07-15 15:07 | disposition home or self-care (01) ==
PROVIDERS: PCP Internal Medicine; Visit Provider Orthopaedic Surgery
DX: Z47.1 Aftercare following joint replacement surgery (principal)
CPT/HCPCS: 73502

== ENCOUNTER 2023-11-29 11:34 | Outpatient (CLI) | payer MEDICARE, SELFPAY ==
--- NOTE | ~2023-11-29 | XR_ITS ---
Right Shoulder Technique: AP and scapular Y views were obtained. Clinical History: Pain Findings: No fracture or dislocation is seen. Osseous alignment is anatomic. Moderate to large infero medial humeral head osteophyte present. There is mild degenerative change of the AC joint.. Soft tiss ues are unremarkable. Calcified right upper lobe granuloma noted. Impression: Degenerative changes, as detailed above. No fracture or dislocation. Reviewed, dictated and finalized at location M. Impression: Degenerative changes, as detailed above. No fracture or dislocation.
== END 2023-11-29 11:35 | disposition home or self-care (01) ==
PROVIDERS: PCP Internal Medicine; Visit Provider Internal Medicine
DX: M25.511 Pain in right shoulder (principal)
CPT/HCPCS: 73030

== ENCOUNTER 2024-05-30 08:23 | Outpatient (CLI) | payer MEDICARE, SELFPAY ==
--- NOTE | ~2024-05-30 | XR_ITS ---
EXAMINATION: XR hip RT 2V w AP pelvis DATE: 05/30/2024 08:42 INDICATION: Presence of right artificial hip joint. TECHNIQUE: An anteroposterior view of the pelvis and 2 views of right hip were obtained. COMPARISON: Pelvis and right hip radiographs 07/15/2023 FINDINGS: There is lumbar levoscoliosis. There are anterior and posterior fusion procedures in lumbar spine. There is a total right hip arthroplasty in near-anatomic alignment. No periprosthetic lucency to suggest loosening or infection. No fracture. There is mild left hip osteoarthritis. IMPRESSION: 1. Total right hip arthroplasty in near-anatomic alignment. 2. Mild left hip osteoarthritis. Reviewed, dictated and finalized at location B.
== END 2024-05-30 08:24 | disposition home or self-care (01) ==
PROVIDERS: PCP Internal Medicine; Visit Provider Orthopaedic Surgery
DX: Z96.641 Presence of right artificial hip joint (principal); M16.12 Unilateral primary osteoarthritis, left hip
CPT/HCPCS: 73502

== ENCOUNTER 2024-08-21 06:43 | Outpatient (CLI) | payer MEDICARE, SELFPAY ==
--- NOTE | ~2024-08-21 | CT_ITS ---
EXAMINATION: CT shoulder RT wo con DATE: 08/21/2024 07:04 INDICATION: Right shoulder osteoarthritis. Preoperative planning. TECHNIQUE: Computed tomography (CT) of the right shoulder was performed without intravenous contrast. Automated exposure control and iterative reconstruction technique were employed. The dose-length pro duct was 449.25 mGy-cm. COMPARISON: Right shoulder radiographs 06/20/2024 FINDINGS: A calcified right lung nodule and calcified right hilar lymph nodes are consistent with old granulomatous disease. There is a pneumatocele in right lower lobe. Alignment is normal. No fracture . There is severe osteoarthritis of acromioclavicular joint and glenohumeral joint. There is moderate fatty atrophy of teres minor muscle belly and mild fatty atrophy of supraspinatus and infraspinatus muscle bellies. IMPRESSION: 1. Severe polyarticular osteoarthritis. Reviewed, dictated and finalized at location B. FOR STUDENT AFFAIRS
[2024-08-21 07:32] LABS: Hematocrit 41.4 % (37.0-47.0)
[2024-08-21 07:51] LABS: Albumin Level 4.4 g/dL (3.5-5.1); Estimated Glomerular Filt Rate > 60; Glucose 101 mg/dL (65-110)
--- OUTSIDE RECORDS SUMMARY | 2024-08-23 15:21 | XMS_ITS ---
Author Organization Unknown Address [address] [place] [phone] Phone Care Team Providers Care Business Systems Technician Name Role Phone TRENTON LINARES Attending Unavailable Immunization Immunization Date Status Additional Notes Code Code System pneumococcal polysaccharide PPV23 04/23/2014 Completed 33 CVX Tdap 01/12/2017 Completed 115 CVX zoster live 12/13/2012 Completed 121 CVX Pneumococcal conjugate PCV 13 01/21/2016 Completed 133 CVX Influenza, split virus, trivalent, PF 04/23/2014 Completed 140 CVX Influenza, split virus, trivalent, PF 05/07/2022 Completed 140 CVX Influenza, split virus, quadrivalent, PF 06/01/2016 Completed 150 CVX Influenza, split virus, quadrivalent, PF 06/08/2017 Completed 150 CVX Influenza, split virus, quadrivalent, PF 05/12/2018 Completed 150 CVX Influenza, split virus, quadrivalent, PF 04/01/2022 Completed 150 CVX Influenza, recombinant, quadrivalent, PF 05/24/2019 Completed 185 CVX zoster recombinant 04/22/2020 Completed 187 CVX zoster recombinant 07/12/2020 Completed 187 CVX Influenza, high-dose, quadrivalent, PF 04/22/2020 Completed 197 CVX Influenza, high-dose, quadrivalent, PF 06/01/2021 Completed 197 CVX COVID-19, mRNA, LNP-S, PF, 1 00 mcg/0.5mL dose or 50 mcg/0.25mL dose 10/03/2020 Completed 207 CVX COVID-19, mRNA, LNP-S, PF, 1 00 mcg/0.5mL dose or 50 mcg/0.25mL dose 10/31/2020 Completed 207 CVX COVID-19, mRNA, LNP-S, PF, 1 00 mcg/0.5mL dose or 50 mcg/0.25mL dose 06/01/2021 Completed [address] CHEST/LUNG WO CONTRAST - Completed: 10/07/2023 12:59 LOINC: EXAM DESCRIPTION: CT CHEST/LUNG WO CONTRAST REASON FOR STUDY: SOB X ONE MONTH Duration: ONE MONTH TECHNIQUE: CT scan of the chest performed without intravenous contrast using helical scanning technique. Reconstructed coronal and sagittal MPR images reviewed. All images stored on PACS. Automated exposure control was used as a dose optimization technique for this examination. COMPARISON: 08/29/2017 REFERENCE: Per ACR white paper recommendations, unless otherwise specified no follow-up imaging is recommended for incidental renal and adrenal lesions per consensus recommendations based on imaging criteria. Further lab evaluation could be pursued based on clinical findings. FINDINGS: The sensitivity for detection of solid visceral lesions is diminished without the use of intravenous contrast. LUNGS: Central airways are patent. No dense consolidations. Heavily calcified granuloma right upper lobe. Subtle interstitial densities right upper lobe, right lower lobe adjacent to the spine, within the lingula and medial segment right middle lobe likely related to scarring. Less than 0.6 cm noncalcified nodules are demonstrated diffusely and bilaterally which are nonspecific. For example, within the left lung on axial image 31 laterally, in the lower lobe image 75. Right-sided examples image 63 in the lower lobe. PLEURA: No effusion. No pneumothorax. MEDIASTINUM/LORENA: Granulomatous calcifications nonenlarged lymph nodes. Small to moderate hiatal hernia HEART: Heart size is mildly enlarged. No pericardial effusion. CORONARY ARTERY CALCIFICATION: Extensive VASCULATURE: No thoracic aortic aneurysm. AXILLA: No adenopathy. CHEST WALL: No masses. No subcutaneous air. HARDWARE/LINES/TUBES: None. UPPER ABDOMEN: 0.3 cm non obstructing caliceal stone upper pole left kidney with mild caliectasis partially included on this study. Please correlate clinically MUSCULOSKELETAL: No significant abnormality. OTHER: No other significant abnormality. IMPRESSION: ? ? No acute pulmonary process. ? ? Multiple less than 0.6 cm noncalcified nodules bilaterally are nonspecific. Please see Fleischner guidelines for follow-up provided below as reference. ? ? 0.3 cm non obstructing caliceal stone upper pole left kidney with mild caliectasis partially included on this study. ? ? Small to moderate hiatal hernia. ? ? Extensive coronary artery calcifications. Recent guidelines by the Fleischner Society (Radiology 657733,2017) divides patient into low vs. high risk (for example, patients who smoke are considered high risk) and provides followup recommendations as follows: SOLITARY PULMONARY NODULE: Patients considered LOW RISK for lung cancer and a nodule less than 6 mm in diameter require no follow-up. In patients at a HIGHER RISK optional follow-up is in 1 year. MULTIPLE PULMONARY NODULES: Patients considered LOW RISK for lung cancer and multiple nodules less than 6 mm in diameter require no follow-up. In patients at a HIGHER RISK optional follow-up is in 1 year. Note: These recommendations do not apply to lung cancer screening, patients with immunosuppression, or patients with known primary cancer. http://pubs.rsna.org/doi/pdf/10.1148/radiol.8260818735 THIS IS AN ELECTRONICALLY VERIFIED FINAL REPORT 10/10/2023 8:00 AM - Electronically signed by Shelton Villarreal M.D. RB: DESIREE Report ID: [id number] Reading Location: [id number] Social History Type Status Start Date End Date Code Code Syst em Smoking History Never smoker (Never Smoked) 418987729 SNOMED CT Smoking History Former smoker [id number] SNOMED CT Sex Female Medications Medication Start Date End Date Route Frequency Dose Code Code System Medication Instructions Home Meds Eliquis 2.5MG Oral Tablet 08/30/2017 Unknown ORAL EVERY 12 HOURS 5 MILLIGRAMS 2104971 RxNorm TAKE 5 MILLIGRAMS ORAL EVERY 12 HOURS Metoprolol Tartrate 25MG Oral Tablet 08/30/2017 Unknown ORAL EVERY 12 HOURS 25 MILLIGRAMS [id number] RxNorm TAKE 25 MILLIGRAMS ORAL EVERY 12 HOURS Acetaminophen- diphenhydrAMIN E HCl 500MG-25MG Oral Tablet 08/30/2017 Unknown ORAL NEEDED AT BEDTIME 1 TABLET [id number] RxNorm TAKE 1 TABLET ORAL NEEDED AT BEDTIME Celecoxib 200MG Oral Capsule 08/30/2017 Unknown ORAL DAILY WITH MEAL 200 MILLIGRAMS [id number] RxNorm TAKE 200 MILLIGRAMS ORAL DAILY WITH MEAL Losartan Potassium-hydr oCHLOROthiazid e 100MG-12.5MG Oral Tablet 08/30/2017 Unknown ORAL ONCE A DAY 0.5 TABLET [id number] RxNorm TAKE 0.5 TABLET ORAL ONCE A DAY Pantoprazole Sodium 40MG Oral Tablet, Enteric Coated 08/30/2017 Unknown ORAL EVERY 12 HOURS 40 MILLIGRAMS [id number] RxNorm TAKE 40 MILLIGRAMS ORAL EVERY 12 HOURS Terazosin HCl 2MG Oral Capsule 08/30/2017 Unknown ORAL AT BEDTIME 2 MILLIGRAMS 552835 RxNorm TAKE 2 MILLIGRAMS ORAL AT BEDTIME VESIcare 10MG Oral Tablet 08/30/2017 Unknown ORAL ONCE A DAY 10 MILLIGRAMS 838349 RxNorm TAKE 10 MILLIGRAMS ORAL ONCE A DAY Assessment You had the following problems:A FIB Hospital Discharge Instructions Should you have any questions prior to discharge, please contact a member of your healthcare team. If you have left the hospital and have any questions, please contact your primary care physician. Reason For Referral No Data Found Problems Problem Start Date Resolved Date Status Code Code System A FIB active [id number] SNOMED-CT Allergies and Adverse Reactions Allergy Substance Reaction Severity Start Date Concern Status Co de Code System No Known Drug Allergies Moderate Active [id number] SNOMED-CT Plan of Treatment US Venous Right LE (70265) 08/09/2023 Pulmonary Function Test 10/07/2023 CT Chest/Lung WO Contrast (77321) 10/06 Pulmonary Function Test 10/07/2023 CT Chest/Lung WO Contrast (41586) 10/06 Encounters Encounter Diagnosis Start Date Code Code Sys tem Shortness of breath 10/07/2023 SNOMED-C T Personal Care Team Section Performer Name Performer Role Active Date Inactive Da te Imaging Narrative Notes
--- OUTSIDE RECORDS SUMMARY | 2024-08-23 15:21 | XMS_ITS ---
Author Organization Unknown Address [address] [place] [address] [phone] Phone Care Team Providers Care Safety Specialist Name Role Phone SAVANA ALVARADO PA-C Attending Hector Haywood Primary Unavailable Immunization Immunization Date Status Additional Notes [...] mcg/0.25mL dose 06/01/2021 Completed 207 CVX Results CBC W/ DIFF - Collect Date/T isabelle: 08/04/2023 13:13 [facility] ID: [id number] [address] [place], [place], [phone] LOINC: 97877-7 Test Value Unit Reference Range Code Code System Flag WBC 9.7 10^3uL L=4.8 H=10.8 RBC 3.87 10^6uL L=4.20 H=5.40 L HEMOGLOBIN 10.3 g/dL L=12.0 H=16.0 718-7 LOINC L HEMATOCRIT 34.2 VOL% L=37.0 H=47.0 4544-3 LOINC L MCV 88.4 fL L=81.0 H=99.0 MCH 26.6 pg L=27.0 H=32.0 L MCHC 30.1 g/dL L=32.0 H=36.0 L PLATELETS 247 10^3uL L=100 H=400 11272-4 LOINC RDW 14.2 % L=11.7 H=15.5 %GRAN 71.9 % L=40.0 H=70.0 29497-6 LOINC H %LYMPH 16.0 % L=20.0 H=45.0 736-9 LOINC L %MONO 7.7 % L=2.0 H=10.0 02232-8 LOINC %EOS 3.7 % L=0.0 H=6.0 713-8 LOINC %BASO 0.5 % L=0.0 H=3.0 706-2 LOINC #NEUT 7.0 10^3uL L=1.9 H=7.6 71377-9 LOINC #LYMPH 1.6 10^3uL L=0.9 H=4.9 46887-0 LOINC #MONO 0.8 10^3uL L=0.1 H=0.9 59705-9 LOINC #EOS 0.4 10^3uL L=0.0 H=0.6 712-0 LOINC #BASO 0.05 10^3uL L=0.00 H=0.10 23813-0 LOINC #IM GRANS 0.0 10^3uL L=0.0 H=7.0 05301-5 LOINC %IM GRANS 0.2 % L=0.0 H=5.0 88230-7 LOINC %NRB 0.0 L=0.0 H=0.2 43426-5 LOINC #NRB 0.000 L=0.000 H=0.012 32033-8 LOINC MANUAL DIFF NOT INDICATED RBC MORPH NOT INDICATED CRP NON SPECIFIC - Collect D ate/Time: 08/04/2023 13:13 [facility] ID: [id number] [address] [place] [address], [phone] LOINC: 1987-11 Test Value Unit Reference Range Code Code System Flag CRP-NON SPECIFIC < 5.0 mg/L L=0.0 H=10.0 1987-11 LOINC SED RATE - Collect Date/Time : 08/04/2023 13:13 [facility] ID: [id number] [address] [place] [address], [phone] LOINC: Test Value Unit Reference Range Code Code System Flag SED RATE 28 mm/hr L=0 H=20 H US VENOUS RIGHT LE - Complet ed: 08/04/2023 13:21 LOINC: 87154-0 EXAM DESCRIPTION: US VENOUS RIGHT LE REASON FOR STUDY: EDEMA TECHNIQUE: Duplex scan using the B-mode, spectral Doppler, and color-flow Doppler of the deep venous system of the right lower extremity was performed. Images stored on PACS. COMPARISON: None FINDINGS: Suspected nonocclusive thrombus in the right posterior tibial vein. The common femoral, common femoral-saphenous vein confluence, visualized profunda femoral, superficial femoral, and popliteal veins are readily compressible with no intraluminal thrombus on whiting scale images. There is normal color and spectral Doppler signal, including augmentation. Greater saphenous vein appears patent. IMPRESSION: Suspected nonocclusive thrombus in the right posterior tibial vein. No above the knee thrombus identified. THIS IS AN ELECTRONICALLY VERIFIED FINAL REPORT 08/04/2023 2:07 PM - Electronically signed by Ronan Galicia M.D. KR: KR Report ID: [id number] Reading Location: [place] [address] Social History Type Status Start Date End Date Code Code Syst em Smoking History Never smoker (Never Smoked) 258553191 SNOMED CT Smoking History Former smoker 0239725 SNOMED CT Sex Female Medications Medication Start Date End Date Route Frequency Dose Code Code System Medication Instructions Home Meds Eliquis 2.5MG Oral Tablet 08/30/2017 Unknown ORAL EVERY 12 HOURS 5 MILLIGRAMS 7764399 RxNorm TAKE 5 MILLIGRAMS ORAL EVERY 12 HOURS Metoprolol Tartrate 25MG Oral Tablet 08/30/2017 Unknown ORAL EVERY 12 HOURS 25 MILLIGRAMS 265432 RxNorm TAKE 25 MILLIGRAMS ORAL EVERY 12 HOURS Acetaminophen- diphenhydrAMIN E HCl 500MG-25MG Oral Tablet 08/30/2017 Unknown ORAL NEEDED AT BEDTIME 1 TABLET 3807815 RxNorm TAKE 1 TABLET ORAL NEEDED AT BEDTIME Celecoxib 200MG Oral Capsule 08/30/2017 Unknown ORAL DAILY WITH MEAL 200 MILLIGRAMS 953433 RxNorm TAKE 200 MILLIGRAMS ORAL DAILY WITH MEAL Losartan Potassium-hydr oCHLOROthiazid e 100MG-12.5MG Oral Tablet 08/30/2017 Unknown ORAL ONCE A DAY 0.5 TABLET 977958 RxNorm TAKE 0.5 TABLET ORAL ONCE A DAY Pantoprazole Sodium 40MG Oral Tablet, Enteric Coated 08/30/2017 Unknown ORAL EVERY 12 HOURS 40 MILLIGRAMS 780085 RxNorm TAKE 40 MILLIGRAMS ORAL EVERY 12 HOURS Terazosin HCl 2MG Oral Capsule 08/30/2017 Unknown ORAL AT BEDTIME 2 MILLIGRAMS 746200 RxNorm TAKE 2 MILLIGRAMS ORAL AT BEDTIME VESIcare 10MG Oral Tablet 08/30/2017 Unknown ORAL ONCE A DAY 10 MILLIGRAMS 052712 RxNorm TAKE 10 MILLIGRAMS ORAL ONCE A [...] Status Code Code System A FIB active 49004766 SNOMED-CT Allergies and Adverse Reactions Allergy Substance Reaction Severity Start Date Concern Status Co de Code System No Known Drug Allergies Moderate Active 344343035 SNOMED-CT Plan of Treatment US Venous Right LE (39533) 08/09/2023 Pulmonary Function Test 10/07/2023 CT Chest/Lung WO Contrast (83481) 10/06 Pulmonary Function Test 10/07/2023 CT Chest/Lung WO Contrast (69611) 10/06 Encounters Encounter Diagnosis Start Date Code Code Sys tem Localized edema 08/04/2023 SNOMED-CT Personal Care Team Section Performer Name Performer Role Active Date Inactive Da te Imaging Narrative Notes
--- OUTSIDE RECORDS SUMMARY | 2024-08-23 15:22 | XMS_ITS ---
Author Organization Unknown Address [address] [place] [phone] Phone Care Team Providers Care Ambulatory Analyst Name Role Phone TRENTON LINARES Attending Unavailable [...] mcg/0.25mL dose 06/01/2021 Completed 207 CVX Results URINALYSIS w/Microscopy - Co llect Date/Time: 11/12/2023 12:30 [facility] ID: [id number] [place], [place], [phone] LOINC: 37894-1 Test Value Unit Reference Range Code Code System Flag UR SOURCE CLEAN CATCH 99385-9 LOINC COLOR YELLOW YELLOW 5778-6 LOINC CLARITY CLEAR CLEAR 42987-7 LOINC SPEC GRAVITY 1.025 1.000-1.030 5811-5 LOINC PH 6.0 5.0 - 6.5 5803-2 LOINC LEUK EST NEGATIVE NEGATIVE 5799-2 LOINC NITRATE NEGATIVE NEGATIVE PROTEIN NEGATIVE NEGATIVE 5804-0 LOINC GLUCOSE NEGATIVE NEGATIVE 49326-4 LOINC KETONES NEGATIVE NEGATIVE 32492-7 LOINC UROBILINOGEN 1.0 NEGATIVE 5818-0 LOINC BILIRUBIN NEGATIVE NEGATIVE 48303-0 LOINC BLOOD NEGATIVE NEGATIVE 07612-2 LOINC WBC 0-2 0 - 2 44295-0 LOINC RBC 0-2 0 - 2 84051-4 LOINC EPITHELIAL MANY RARE-FEW 82840-1 LOINC A BACTERIA FEW NONE SEEN 09978-9 LOINC MUCUS NONE SEEN NONE SEEN 8247-9 LOINC YEAST NOT PRESENT NOT PRESENT 09616-2 LOINC CASTS NONE SEEN 86549-6 LOINC CRYSTALS NONE SEEN 85900-5 LOINC MICROALBUMIN - Collect Date/ Time: 11/12/2023 12:30 [facility] ID: [id number] [place], [place], [phone] LOINC: 64155-8 Test Value Unit Reference Range Code Code System Flag MICROALBUMIN 15.3 mg/L L=0.0 H=16.7 04537-5 LOINC UR CREATININE 229.00 mg/dL L=30.00 H=125 2161-8 LOINC H MA/CR 6.7 mg/gCR CBC W/O DIFF - Collect Date/ Time: 11/12/2023 07:42 [facility] ID: [id number] [place], [place], [phone] LOINC: 69898-7 Test Value Unit Reference Range Code Code System Flag WBC 6.7 10^3uL L=4.8 H=10.8 RBC 4.94 10^6uL L=4.20 H=5.40 HEMOGLOBIN 12.1 g/dL L=12.0 H=16.0 718-7 LOINC HEMATOCRIT 39.7 VOL% L=37.0 H=47.0 4544-3 LOINC MCV 80.4 fL L=81.0 H=99.0 L MCH 24.5 pg L=27.0 H=32.0 L MCHC 30.5 g/dL L=32.0 H=36.0 L PLATELETS 249 10^3uL L=100 H=400 11895-4 LOINC RDW 18.4 % L=11.7 H=15.5 H IRON PANEL - Collect Date/Ti me: 11/12/2023 07:42 [facility] ID: [id number] [address] [place] [address], [phone] LOINC: Test Value Unit Reference Range Code Code System Flag IRON 52 ug/dL L=37 H=170 2498-4 LOINC TIBC 446 ug/dL L=265 H=497 2500-7 LOINC %SATURATION 12 % L=13 H=45 2708-6 LOINC L CPK - Collect Date/Time: 07:42 [facility] ID: [id number] [address] [place] [address], [phone] LOINC: 2157-6 Test Value Unit Reference Range Code Code System Flag CPK 205 U/L L=30 H=170 2157-6 LOINC H T4 FREE - Collect Date/Time: 11/12/2023 07:42 [facility] ID: [id number] [address] [place] [address], [phone] LOINC: 3024-7 Test Value Unit Reference Range Code Code System Flag T4, FREE 0.82 ng/dL L=0.78 H=2.19 3024-7 LOINC FREE T3 - Collect Date/Time: 11/12/2023 07:42 [facility] ID: [id number] [address] [place] [address], [phone] LOINC: 3051-0 Test Value Unit Reference Range Code Code System Flag FREE T3 2.47 pg/mL L=2.77 H=5.27 3051-0 LOINC L PRO BNP - Collect Date/Time: 11/12/2023 07:42 [facility] ID: [id number] [address] [place] [address], [phone] LOINC: 86696-1 Test Value Unit Reference Range Code Code System Flag Pro BNP2 52 pg/mL L=0 Q=1976 08267-2 LOINC HGB A1C -GLYCOHEMOGLOBIN - C ollect Date/Time: 11/12/2023 07:42 [facility] ID: [id number] [address] [place] [address], [phone] LOINC: 4548-4 Test Value Unit Reference Range Code Code System Flag HGBA1C 5.8 % 4548-4 LOINC TSH - Collect Date/Time: 07:42 [facility] ID: [id number] [address] [place] [address], [id number] LOINC: 47118-6 Test Value Unit Reference Range Code Code System Flag TSH. 2.770 uIU/L L=0.470 H=4.680 43059-2 LOINC LIPID PANEL - Collect Date/T isabelle: 11/12/2023 07:42 [facility] ID: [id number] [address] [place] [address], [phone] LOINC: 28809-1 Test Value Unit Reference Range Code Code System Flag FASTING NO CHOLESTEROL 156 mg/dL L=0 H=200 2093-3 LOINC TRIGLYCERIDE 155 mg/dL L=0 H=150 2571-8 LOINC H HDL 31 mg/dL L=40 H=60 2084-9 LOINC L LDL 104 mg/dL 2088- LOINC VITAMIN B-12 - Collect Date/ Time: 11/12/2023 07:42 [facility] ID: [id number] [address] [place] [address], [phone] LOINC: 213-9 Test Value Unit Reference Range Code Code System Flag VITAMIN B12 311 pq/mL L=239 H=931 COMPREHENSIVE METABOLIC PANE L - Collect Date/Time: 11/12/2023 07:42 [facility] ID: [id number] [address] [place] [address], [phone] LOINC: 56845-3 Test Value Unit Reference Range Code Code System Flag FASTING NO BUN 22 mg/dL L=7 H=20 3094-0 LOINC H CREATININE 0.70 mg/dL L=0.52 H=1.04 2160-0 LOINC GLUCOSE 114 mg/dL L=74 H=106 2345-7 LOINC H SODIUM 142 mmol/L L=132 H=144 2951-2 LOINC POTASSIUM 3.9 mmol/L L=3.5 H=5.1 2823-3 LOINC CHLORIDE 105 mmol/L L=98 H=107 2075-0 LOINC CO2 28.0 mmol/L L=22.0 H=30.0 8-9 LOINC ANION GAP 13 L=10 H=20 83518-3 LOINC OSMOLALITY 298 mOs/kG L=280 H=296 21603-8 LOINC H BUN/CREAT 31.4 3097-3 LOINC CALCIUM 9.3 mg/dL L=8.3 H=10.5 11075-7 LOINC AST 31 U/L L=15 H=46 1920-8 LOINC ALT 30 U/L L=9 H=72 1742-6 LOINC ALKALINE PHOS 110 U/L L=38 H=126 6768-6 LOINC TOTAL BILI 0.5 mg/dL L=0.2 H=1.3 1975-2 LOINC ALBUMIN 4.2 G/dL L=3.5 H=5.0 1751-7 LOINC TOTAL PROTEIN 7.2 g/L L=6.3 H=8.2 2885-2 LOINC A/G RATIO 1.4 39186-7 LOINC AGE 78 99997-1 LOINC eGFR NON-AFR 86 ml/min eGFR AFR AMER 104 ml/min Social History Type Status Start Date End Date Code Code Syst em Smoking History Never smoker (Never Smoked) 797060760 SNOMED CT Smoking History Former smoker 9594312 SNOMED CT Sex Female Medications Medication Start Date End Date Route Frequency Dose Code Code System Medication Instructions Home Meds Eliquis 2.5MG Oral Tablet 08/30/2017 Unknown ORAL EVERY 12 HOURS 5 MILLIGRAMS 2341906 RxNorm TAKE 5 MILLIGRAMS ORAL EVERY 12 HOURS Metoprolol Tartrate 25MG Oral Tablet 08/30/2017 Unknown ORAL EVERY 12 HOURS 25 MILLIGRAMS 652107 RxNorm TAKE 25 MILLIGRAMS ORAL EVERY 12 HOURS Acetaminophen- diphenhydrAMIN E HCl 500MG-25MG Oral Tablet 08/30/2017 Unknown ORAL NEEDED AT BEDTIME 1 TABLET 4498299 RxNorm TAKE 1 TABLET ORAL NEEDED AT BEDTIME Celecoxib 200MG Oral Capsule 08/30/2017 Unknown ORAL DAILY WITH MEAL 200 MILLIGRAMS 536996 RxNorm TAKE 200 MILLIGRAMS ORAL DAILY WITH MEAL Losartan Potassium-hydr oCHLOROthiazid e 100MG-12.5MG Oral Tablet 08/30/2017 Unknown ORAL ONCE A DAY 0.5 TABLET 183768 RxNorm TAKE 0.5 TABLET ORAL ONCE A DAY Pantoprazole Sodium 40MG Oral Tablet, Enteric Coated 08/30/2017 Unknown ORAL EVERY 12 HOURS 40 MILLIGRAMS 221901 RxNorm TAKE 40 MILLIGRAMS ORAL EVERY 12 HOURS Terazosin HCl 2MG Oral Capsule 08/30/2017 Unknown ORAL AT BEDTIME 2 MILLIGRAMS 746925 RxNorm TAKE 2 MILLIGRAMS ORAL AT BEDTIME VESIcare 10MG Oral Tablet 08/30/2017 Unknown ORAL ONCE A DAY 10 MILLIGRAMS 410638 RxNorm TAKE 10 MILLIGRAMS ORAL ONCE A [...] Status Code Code System A FIB active 16611673 SNOMED-CT Allergies and Adverse Reactions Allergy Substance Reaction Severity Start Date Concern Status Co de Code System No Known Drug Allergies Moderate Active 302434042 SNOMED-CT Plan of Treatment US Venous Right LE (85997) 08/09/2023 Pulmonary Function Test 10/07/2023 CT Chest/Lung WO Contrast (01576) 10/06 Pulmonary Function Test 10/07/2023 CT Chest/Lung WO Contrast (90271) 10/06 Encounters Encounter Diagnosis Start Date Code Code Sys tem 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
--- OUTSIDE RECORDS SUMMARY | 2024-08-23 15:22 | XMS_ITS ---
Author Organization Unknown Address [address] [place] [phone] Phone Care Team Providers Care Electrolysist Name Role Phone OSMAN Burch Attending Unavailable TRENTON LINARES Primary Unavailable Immunization Immunization Date Status Additional [...] mcg/0.25mL dose 06/01/2021 Completed 207 CVX Results HIP RT 2 OR 3 VIEWS - Comple nicolasa: 11/25/2023 13:57 LOINC: EXAM DESCRIPTION: ? ? HIP RT 2 OR 3 VIEWS REASON FOR STUDY: Follow right hip replacement Duration: May 2023 Previous Surgery: Right hip replacement FINDINGS: Two views submitted with comparison 08/29/2021. Right total hip arthroplasty is in near anatomic alignment. There are no fractures or evidence of loosening. IMPRESSION: ? ? Right total hip arthroplasty in near anatomic alignment. THIS IS AN ELECTRONICALLY VERIFIED FINAL REPORT 11/27/2023 8:47 AM - Electronically signed by Daniel Diaz M.D. MF: MAGDA Report ID: [id number] Reading Location: [place] [address] Social History Type Status Start Date End Date Code Code Syst em Smoking History Never smoker (Never Smoked) 397784783 SNOMED CT Smoking History Former smoker 5349000 SNOMED CT Sex Female Medications Medication Start Date End Date Route Frequency Dose Code Code System Medication Instructions Home Meds Eliquis 2.5MG Oral Tablet 08/30/2017 Unknown ORAL EVERY 12 HOURS 5 MILLIGRAMS 1384098 RxNorm TAKE 5 MILLIGRAMS ORAL EVERY 12 HOURS Metoprolol Tartrate 25MG Oral Tablet 08/30/2017 Unknown ORAL EVERY 12 HOURS 25 MILLIGRAMS 824113 RxNorm TAKE 25 MILLIGRAMS ORAL EVERY 12 HOURS Acetaminophen- diphenhydrAMIN E HCl 500MG-25MG Oral Tablet 08/30/2017 Unknown ORAL NEEDED AT BEDTIME 1 TABLET 7816156 RxNorm TAKE 1 TABLET ORAL NEEDED AT BEDTIME Celecoxib 200MG Oral Capsule 08/30/2017 Unknown ORAL DAILY WITH MEAL 200 MILLIGRAMS 453773 RxNorm TAKE 200 MILLIGRAMS ORAL DAILY WITH MEAL Losartan Potassium-hydr oCHLOROthiazid e 100MG-12.5MG Oral Tablet 08/30/2017 Unknown ORAL ONCE A DAY 0.5 TABLET 122509 RxNorm TAKE 0.5 TABLET ORAL ONCE A DAY Pantoprazole Sodium 40MG Oral Tablet, Enteric Coated 08/30/2017 Unknown ORAL EVERY 12 HOURS 40 MILLIGRAMS 737803 RxNorm TAKE 40 MILLIGRAMS ORAL EVERY 12 HOURS Terazosin HCl 2MG Oral Capsule 08/30/2017 Unknown ORAL AT BEDTIME 2 MILLIGRAMS 777085 RxNorm TAKE 2 MILLIGRAMS ORAL AT BEDTIME VESIcare 10MG Oral Tablet 08/30/2017 Unknown ORAL ONCE A DAY 10 MILLIGRAMS 294181 RxNorm TAKE 10 MILLIGRAMS ORAL ONCE A [...] Status Code Code System A FIB active 85335994 SNOMED-CT Allergies and Adverse Reactions Allergy Substance Reaction Severity Start Date Concern Status Co de Code System No Known Drug Allergies Moderate Active 271656818 SNOMED-CT Plan of Treatment US Venous Right LE (26381) 08/09/2023 Pulmonary Function Test 10/07/2023 CT Chest/Lung WO Contrast (34945) 10/06 Pulmonary Function Test 10/07/2023 CT Chest/Lung WO Contrast (57238) 10/06 Encounters Encounter Diagnosis Start Date Code Code Sys tem Hip joint prosthesis present 11/25/2023 736588698 SNOMED-CT Personal Care Team Section Performer Name Performer Role Active Date Inactive Da te Imaging Narrative Notes
--- OUTSIDE RECORDS SUMMARY | 2024-08-23 15:23 | XMS_ITS ---
Author Organization Unknown Address [address] [place] [phone] Phone Care Team Providers Care Dispatcher Ship Pilot Name Role Phone TRENTON LINARES Attending Unavailable [...] mcg/0.25mL dose 06/01/2021 Completed 207 CVX Results LIPID PANEL - Collect Date/T isabelle: 01/04/2024 07:33 [facility] ID: [id number] [address] [place], [place], [phone] LOINC: 05437-8 Test Value Unit Reference Range Code Code System Flag FASTING YES CHOLESTEROL 122 mg/dL L=0 H=200 3-3 LOINC TRIGLYCERIDE 118 mg/dL L=0 H=150 2571-8 LOINC HDL 34 mg/dL L=40 H=60 2084-9 LOINC L LDL 72 mg/dL 2088-1 LOINC SGOT (AST) - Collect Date/Ti me: 01/04/2024 07:33 [facility] ID: [id number] [place] [address], [phone] LOINC: 1920-8 Test Value Unit Reference Range Code Code System Flag AST 29 U/L L=15 H=46 1920-8 LOINC SGPT (ALT) - Collect Date/Ti me: 01/04/2024 07:33 [facility] ID: [id number] [address] [place], [place], [phone] LOINC: 1742-6 Test Value Unit Reference Range Code Code System Flag ALT 26 U/L L=9 H=72 1742-6 LOINC CPK - Collect Date/Time: 11/2023 07:33 [facility] ID: [id number] [address] [place] [address], [phone] LOINC: 2157-6 Test Value Unit Reference Range Code Code System Flag CPK 189 U/L L=30 H=170 2157-6 LOINC H Social History Type Status Start Date End Date Code Code Syst em Smoking History Never smoker (Never Smoked) 888906929 SNOMED CT Smoking History Former smoker 9852374 SNOMED CT Sex Female Medications Medication Start Date End Date Route Frequency Dose Code Code System Medication Instructions Home Meds Eliquis 2.5MG Oral Tablet 08/30/2017 Unknown ORAL EVERY 12 HOURS 5 MILLIGRAMS 9343164 RxNorm TAKE 5 MILLIGRAMS ORAL EVERY 12 HOURS Metoprolol Tartrate 25MG Oral Tablet 08/30/2017 Unknown ORAL EVERY 12 HOURS 25 MILLIGRAMS 215559 RxNorm TAKE 25 MILLIGRAMS ORAL EVERY 12 HOURS Acetaminophen- diphenhydrAMIN E HCl 500MG-25MG Oral Tablet 08/30/2017 Unknown ORAL NEEDED AT BEDTIME 1 TABLET 6933817 RxNorm TAKE 1 TABLET ORAL NEEDED AT BEDTIME Celecoxib 200MG Oral Capsule 08/30/2017 Unknown ORAL DAILY WITH MEAL 200 MILLIGRAMS 070635 RxNorm TAKE 200 MILLIGRAMS ORAL DAILY WITH MEAL Losartan Potassium-hydr oCHLOROthiazid e 100MG-12.5MG Oral Tablet 08/30/2017 Unknown ORAL ONCE A DAY 0.5 TABLET 438133 RxNorm TAKE 0.5 TABLET ORAL ONCE A DAY Pantoprazole Sodium 40MG Oral Tablet, Enteric Coated 08/30/2017 Unknown ORAL EVERY 12 HOURS 40 MILLIGRAMS 545669 RxNorm TAKE 40 MILLIGRAMS ORAL EVERY 12 HOURS Terazosin HCl 2MG Oral Capsule 08/30/2017 Unknown ORAL AT BEDTIME 2 MILLIGRAMS 556850 RxNorm TAKE 2 MILLIGRAMS ORAL AT BEDTIME VESIcare 10MG Oral Tablet 08/30/2017 Unknown ORAL ONCE A DAY 10 MILLIGRAMS 669743 RxNorm TAKE 10 MILLIGRAMS ORAL ONCE A [...] Status Code Code System A FIB active 64575744 SNOMED-CT Allergies and Adverse Reactions Allergy Substance Reaction Severity Start Date Concern Status Co de Code System No Known Drug Allergies Moderate Active 385321770 SNOMED-CT Plan of Treatment US Venous Right LE (44801) 08/09/2023 Pulmonary Function Test 10/07/2023 CT Chest/Lung WO Contrast (40095) 10/06 Pulmonary Function Test 10/07/2023 CT Chest/Lung WO Contrast (23699) 10/06 Encounters Encounter Diagnosis Start Date Code Code Sys tem Mixed hyperlipidemia 01/04/2024 SNOMED- CT Personal Care Team Section Performer Name Performer Role Active Date Inactive Da te
--- OUTSIDE RECORDS SUMMARY | 2024-08-23 15:24 | XMS_ITS | Clinical Summary ---
Author Organization [facility] Address [address] [place] [address]. [place], [place] [address] [place] [address] Care Team Providers Care Towboat Captain Name Role Phone Adonay Chase MD Primary Care Provider [phone] Madi Mccloud MD Unavailable Davide Montaño MD Unavailable Shelton Rivas MD Unavailable UnavailCristina Rust APRN, NP-C Unavailable Wade Trevizo MD Unavailable [phone] Moustapha Mccabe MD Unavailable Saad Handy MD Unavailable [phone] Allergies Active Allergy Reactions Criticality Noted Date Comments Amoxicillin-Pot Clavulanate Diarrhea 11/11/2021 Ciprofloxacin Other (see comment) 11/11/2021 Muscle weakness Niacin Unknown 11/11/2021 Tramadol Hallucinations 04/10/2024 Medications pantoprazole 40 MG tabletIndications :Gastroesophageal Reflux Disease Take 1 tablet (40 mg total) by mouth 2 (two) times a day. Indications: Gastroesophageal Reflux Disease 06/09/20 17 Active Multiple Vitamins-Minerals (OCUVITE PRESERVISION OR)Indications:Nu tritional Support Take 1 tablet by mouth daily. Indications: Nutritional Support Taking vitamin 09/07/19 19 Active levothyroxine 50 MCG tabletIndications :thyroid Take 1 tablet (50 mcg total) by mouth every morning. Indications: thyroid 01/19/20 20 Active losartan-hydroCHL OROthiazide 50-12.5 MG tablet Take 1 tablet by mouth daily. 03/19/20 21 Active Pumpkin Seed-Soy Germ (AZO BLADDER CONTROL/GO-LESS OR)Indications:bl adder Take 2 tablets by mouth daily. Indications: bladder Active celecoxib 200 MG capsule Take 1 capsule (200 mg total) by mouth daily. 10/19/19 22 Active amoxicillin (AMOXIL) 500 MG capsule Prior to dental procedure- PRN 11/11/19 23 Active aspirin 81 MG chewable tablet Chew 1 tablet (81 mg total) by mouth daily. 30 tablet 04/15/20 23 Active ezetimibe (ZETIA) 10 MG tablet Take 1 tablet (10 mg total) by mouth daily. 30 tablet 10 05/24/20 23 Active traZODone (DESYREL) 50 MG tablet Take 1 tablet (50 mg total) by mouth nightly at bedtime. 08/17/19 24 Active pravastatin (PRAVACHOL) 40 MG tabletIndications :Mixed hyperlipidemia Take 1 tablet (40 mg total) by mouth nightly at bedtime. 90 tablet 1 11/18/19 24 Active dabigatran (PRADAXA) 150 MG Cap Take 1 capsule (150 mg total) by mouth 2 (two) times daily. 04/03/20 24 Active cyclobenzaprine (FLEXERIL) 5 MG tablet Take 1 tablet (5 mg total) by mouth 3 (three) times daily as needed. 03/05/20 24 Active dilTIAZem ER (TIAZAC) 180 MG 24 hr capsule Take 1 capsule (180 mg total) by mouth daily. 30 capsule 04/16/20 24 Active Active Problems Problem Noted Date Diagnosed Date Chronic venous insufficiency 10/10/2023 Varicose veins of bilateral lower extremities with other complications 10/10/2023 Pain of right lower extremity 08/08/2023 Leg edema 08/08/2023 Coronary artery disease 02/12/2022 S/P coronary artery stent placement 02/12/2022 Post-operative state 07/06/2021 PFO (patent foramen ovale) ([facility]) 08/10/2018 Mixed hyperlipidemia 03/16/2018 Sinus node dysfunction ([facility]) 018 Chronic anticoagulation 09/29/2017 Paroxysmal atrial fibrillation ([facility]) 09/06/2017 Essential (primary) hypertension 09/06/2017 STEVEN (obstructive sleep apnea) 09/06/2017 Resolved Problems Problem Noted Date Diagnosed Date Resolved Date Preop cardiovascular exam 06/11/2021 Preoperative clearance 08/10/201804/11 Chest pain 09/06/2017 04/11/2020 Shortness of breath 09/06/2017 04/11/20 20 Essential hypertension, benign 04/11/2020 Atrial fibrillation ([facility]) 01/05/2018 Encounters Date Type Department Care Team Description 08/15/2024 Telephone [facility] [address] [place] [address] Cristina Gnozales APRN, METAL HANGING HELPER-C Information 08/14/2024 2:00 PM HANDKERCHIEF SAMPLE CLERK Office Visit [facility] [address] [place] [address] Cristina Gonzales APRN, METAL HANGING HELPER-C Consult (Preop eval for shoulder surgery) 08/14/2024 Travel 08/14/2024 Orders Only [facility] [address] [place] [address] Chapito Zavaleta MD 08/09/2024 Telephone [facility] [address] [place] [address] Cristina Gonzales APRN, METAL HANGING HELPER-C Reschedule 07/31/2024 Telephone [facility] [address] [place] [address] Cristina Gonzales APRN, METAL HANGING HELPER-C Other 07/06/2024 Telephone [facility] [address] [place] [phone] Cristina Gonzales APRN, METAL HANGING HELPER-C Surgical Clearance 07/04/2024 2:30 PM HANDKERCHIEF SAMPLE CLERK Office Visit [facility] [place] [address] [place] [address] Moustapha Mccabe MD Follow Up (2 month follow up- with [facility]VI prir) 07/04/2024 12:34 PM HANDKERCHIEF SAMPLE CLERK - 07/04/2024 11:59 PM HANDKERCHIEF SAMPLE CLERK Hospital Encounter [facility] Vascular Ultrasound - [facility] [place] [address] [place] [address] Moustapha Mccabe MD Discharge Disposition: Home or Self Care (Routine Discharge) 07/04/2024 Travel from Last 3 Months Immunizations Name Administration Dates Next Due MODERNA COVID-19 (CHEF FRENCH DELFINO MALKA), MRNA, LNP-S, PF, 50 MCG/ 0.25 ML DOSE 06/01/2021 Family History Medical History Relation Comments Heart Attack Brother Heart Attack Father Heart Disease Father Diabetes Mother CABG Sister Stent Cardiac Sister Valve Disease Sister Relation Status Comments Brother Father Mother Sister Social History Tobacco Use Types Packs/Day Years Used Date Smoking Tobacco: Former Cigarettes Q uit: 1989 Passive Smoke Exposure: Past Smokeless Tobacco: Never Tobacco Cessation:Counseling Given: Not Answered Alcohol Use Standard Drinks/Week Comments No 0 (1 standard drink = 0.6 oz pur e alcohol) Comments Unknown Sex and Gender Information Value Date Recorded Sex Assigned at Female 08/14/2024 1:38 PM HANDKERCHIEF SAMPLE CLERK Legal Sex Female 8:33 PM CDT Gender Identity Not on file Sexual Orientation Not on file Occupation Industry Job Start Date Job End Date Not on file Not on file Not on file Not on file Last Filed Vital Signs Vital Sign Reading Time Taken Comments Blood Pressure 134/76 08/14/2024 1:54 PM HANDKERCHIEF SAMPLE CLERK Pulse 63 08/14/2024 1:54 PM HANDKERCHIEF SAMPLE CLERK Temperature 36.4 ??C (97.5 ??F) 02/05/2022 12:19 PM C DT Respiratory Rate 18 08/14/2024 1:54 PM HANDKERCHIEF SAMPLE CLERK Oxygen Saturation 99% 08/14/2024 1:54 PM HANDKERCHIEF SAMPLE CLERK Inhaled Oxygen Concentration - - Weight 94.9 kg (209 lb 3.2 oz) 08/14/2024 1:54 P M HANDKERCHIEF SAMPLE CLERK Height 167.6 cm (5' 6 ) 08/14/2024 1:54 PM HANDKERCHIEF SAMPLE CLERK Body Mass Index 33.77 08/14/2024 1:54 PM HANDKERCHIEF SAMPLE CLERK Plan of Treatment Upcoming Encounters Date Type Department Care Team (Late st Contact Info) Description 08/22/2025 2:30 PM HANDKERCHIEF SAMPLE CLERK Office Visit [facility] [address] [place] [phone] Cristina Gonzales, WOOD POLE TREATER, METAL HANGING HELPER-C [address] [facility] [address] [place] [phone] Health Maintenance Due Date Last Done Comments Hepatitis C 1963 DTaP, Tdap and Td Vaccines ( 1 - Tdap) 1965 Annual Medicare Wellness Visit 2011 Dexa Scan (General) 2011 Pneumococcal Vaccine: 65+ Years (2 of 2 - PPSV23 or PCV20) 03/17/2016 01/21/2016 RSV Immunization or 60+ Years (1 - 1-dose 75+ series) 2021 COVID-19 Vaccine (4 - 2023-2 5 season) 2024 06/01/2021, 10/31/2020, 10/03/2020 Influenza Adult (#1) 2024 04/22/2020, 05/24/2019 Zoster Vaccines Completed 07/12/2020, 04/22/2020, 12/13/2012 Meningococcal B Vaccine Aged Out No l onger eligible based on patient's age to complete this topic Meningococcal Vaccine Aged Out No josué isabel eligible based on patient's age to complete this topic RSV Immunizations Under 20 Months Aged Out No longer eligible b ased on patient's age to complete this topic Goals Goal Patient Goal Type Associated Problems Recent Progress Patient-Stated? Author Safety ? Patient/family will have appropriate support at home upon discharge General No Dianelys Silva, RN Medical Devices Implanted Type Area Employment Office Clerk Device Identifier Shelf Expiration Date Model / Serial / Lot Graft Bone Bonus Triad Cancellous Cortical 1cc Allograft - [id number] Implanted:Qty: 1 on 07/06/2021 by Ramses Guerra MD at [facility] Bone N/A: Spine Lumbar [employer] 12/21/2025 [id number] / / Cv Synergy 4.0mm X 24mm Julian Mid Rca-02/05/2022 Implanted:02/05 by Chapito Zavaleta MD (Quantity not on file) Stent Coronary RCA [employer] 09/28/2023 [id number] / / [id number] F3d Straight, Cage Implanted:Qty: 1 on 07/06/2021 by Ramses Guerra MD at [facility] N/A: Spine Lumbar NEW AGE MEDICAL [id number] 06/04/2025 [id number] / / [id number] F3d Straight, Cage Implanted:Qty: 1 on 07/06/2021 by Ramses Guerra MD at [facility] N/A: Spine Lumbar NEW AGE MEDICAL [id number] 09/30/2025 [id number] / / [id number] Mis Set Screw Implanted:Qty: 6 on 07/06/2021 by Ramses Guerra MD at [facility] N/A: Spine Lumbar NEW AGE MEDICAL [id number] / / Mis Cortical Poly Screw 6.5 X 45mm Implanted:Qty: 6 on 07/06/2021 by Ramses Guerra MD at [facility] N/A: Spine Lumbar NEW AGE MEDICAL [id number] / / Mis Abimael 55mm Implanted:Qty: 2 on 07/06/2021 by Ramses Guerra MD at [facility] N/A: Spine Lumbar NEW AGE MEDICAL [id number] / / Explanted Type Area Employment Office Clerk Device Identifier Shelf Expiration Date Model / Serial / Lot 1.4mm K-Wire Explanted:Qty: 1 on 07/06/2021 by Ramses Guerra MD at [facility] N/A: Spine Lumbar NEW AGE MEDICAL NAM-GUIDEW [id number] / / Procedures Procedure Name Priority Date/Time Associated Diagnosis Comments ELECTROCARDIOGRAM (NON MIDMARK ACQUIRED) Routine 08/14/2024 1:56 PM HANDKERCHIEF SAMPLE CLERK Preoperative cardiovascular examination Coronary artery disease involving [place] coronary artery of [place] heart without angina pectoris Essential (primary) hypertension Mixed hyperlipidemia USV VENOUS REFLUX LOW SANDOVAL Routine 07/04/2024 1:35 PM HANDKERCHIEF SAMPLE CLERK Chronic venous insufficiency Leg edema Pain of right lower extremity from Last 3 Months Results * ELECTROCARDIOGRAM (08/14/2024 1:56 PM HANDKERCHIEF SAMPLE CLERK) 08/14/2024 1:56 PM HANDKERCHIEF SAMPLE CLERK Narrative [facility] - 08/15/2024 11:37 AM HANDKERCHIEF SAMPLE CLERK ? [facility], [facility] [place] ?[address], [place] ??[address] ? Test Date: ?2024-08-14 Pat Name: ? FRIEDA GANDARA ?Department: ?? 105 ? Room: ? Gender: ? Female ? Horseradish Maker: ?? : ?1945 ? Requested By: CHAPITO ZAVALETA Order Number: [id number] ?Reading MD: ?? Chapito Zavaleta ? Measurements Intervals ?[place] ? Rate: ? 71 ? P: ?79 RI: ? 159 ?QRS: ?84 QRSD: ? 88 ? T: ?60 QT: ? 398 ? QTc: ?433 ? Interpretive Statements SINUS RHYTHM KERCHIEF SAMPLE CLERK Procedure Note Chapito Zavaleta MD - 08/15/2024 [facility], [place] [address] [place] [address] Test Date: 2024-08-14 Pat Name: FRIEDA GANDARA Department: 105 Room: Gender: Female Horseradish Maker: : 1945 Requested By: CHAPITO ZAVALETA Order Number: [id number] Reading MD: Chapito Zavaleta Measurements Intervals [place] Rate: 71 P: 79 RI: 159 QRS: 84 QRSD: 88 T: 60 QT: 398 QTc: 433 Interpretive Statements SINUS RHYTHM KERCHIEF SAMPLE CLERK us Chapito Zavaleta MD PROCEDURES-ORDERABLE NO CHARG E Final Result [facility] * USV VENOUS REFLUX LOW SANDOVAL (07/04/2024 1:35 PM HANDKERCHIEF SAMPLE CLERK) Anatomical Region Laterality Modality Extremity Ultrasound 07/04/2024 12:5 5 PM HANDKERCHIEF SAMPLE CLERK Narrative 07/04/2024 2:18 PM HANDKERCHIEF SAMPLE CLERK ?Vascular Report Pat.Name: ??FRIEDA GANDARA ?Pat.ID: ?[id number] ? St.Date: ?? 07/04/2024 ? Refer.MD: ??MOUSTAPHA MCCABE ? Exam Time: 12:55:00 PM ? Study Type:PVI VENOUS DUPLEX SCAN REFLUX BILAT ??Age: ??1945,79Y ? Sex: ? F ? Sonogrphr: Merced Damon RVT ? Pat. Stat.:Outpatient ? CPT - 4: ?73327 Venous Duplex LE/UE Reason for Study:Varicose veins ? Race: ?W ? ++++++++++++++++++++++++++++++++++++ FINDINGS: ++++++++++++++++++++++++++++++++++++ Bilat: ?No evidence of acute or chronic thrombosis noted in the deep ?or superficial veins in either lower extremity. Reflux Rt Low Ext: Significant superficial venous reflux > 0.5 sec ?noted in the at knee to mid calf great saphenous vein. ?Reflux extends into tributaries at the proximal calf. ?Unable to visualize the saphenopopliteal junction. ?Cluster of varicosities extending from pelvis noted, no ?reflux noted. No evidence of deep venous reflux ?noted. Reflux Lt Low Ext: Significant superficial venous reflux > 0.5 sec ?noted in the proximal to mid calf great saphenous vein. ?Unable to visualize the saphenopopliteal junction. ?No evidence of deep venous reflux noted. Reflux ?portion of exam was performed with patient in the upright ?position. ++++++++++++++++++++++++++++++++++++ MEASUREMENTS: ++++++++++++++++++++++++++++++++++++ ?REFLUX Right CFV ?? CFV ?0 sec ? Right Mid FV ?? Mid FV ? 0 sec ? Right Pop V ?? Pop V ?0 sec ? Right SFJ ?? GSV SFJ ?8 mm ?GSV SFJ ?0 sec Right Prox Thigh ?? GSV Prox Thigh ?? 6.8 mm ?GSV Prox Thigh ? 0 sec Right Mid Thigh ?? GSV Mid Thigh ?5.7 mm ?GSV Mid Thigh ?0 sec Right Dist Thigh ?? GSV Dist Thigh ?? 6.3 mm ?GSV Dist Thigh ? 0 sec Right Knee ?? GSV Knee ? 6.5 mm ?GSV Knee ? 2 sec Right Mid Calf ?? GSV Mid Calf ? 5.5 mm ?Mid Calf ? 4.1 mm ?? GSV Mid Calf ? 2.2 sec ? Mid Calf ? 0 sec Right Mid ?? SSV Mid ?2.5 mm ?SSV Mid ?0 sec Right Prox ?? SSV Prox ? 4.7 mm ?SSV Prox ? 0 sec Right Prox Calf ?? GSV Prox Calf ?5.5 mm ?GSV Prox Calf ?2.2 sec Left CFV ?? CFV ?0 sec ? Left Mid FV ?? Mid FV ? 0 sec ? Left Pop V ?? Pop V ?0 sec ? Left SFJ ?? GSV SFJ ?7.5 mm ?GSV SFJ ?0 sec Left Prox Thigh ?? GSV Prox Thigh ?? 5.4 mm ?GSV Prox Thigh ? 0 sec Left Mid Thigh ?? GSV Mid Thigh ?5.2 mm ?GSV Mid Thigh ?0 sec Left Dist Thigh ?? GSV Dist Thigh ?? 5.1 mm ?GSV Dist Thigh ? 0 sec Left Knee ?? GSV Knee ? 5.2 mm ?GSV Knee ? 0 sec Left Prox Calf ?? GSV Prox Calf ?5.5 mm ?GSV Prox Calf ?2 sec Left Mid Calf ?? GSV Mid Calf ? 4.5 mm ?GSV Mid Calf ? 1.7 sec Left Prox ?? SSV Prox ? 0 mm ?SSV Prox ? 0 sec Right Trib Prox Calf ?? Trib Prox Calf ?? 4.5 mm ?Trib Prox Calf ?? 0.7 sec <Electronic Signature> 07/04/2024 02:18 PM Moustapha Mccabe M.D. Procedure Note Moustapha Mccabe MD - 07/04/2024 Vascular Report Pat.Name: FRIEDA GANDARA Pat.ID: [id number] St.Date: 07/04/2024 Refer.MD: MOUSTAPHA MCCABE Exam Time: 12:55:00 PM Study Type:PVI VENOUS DUPLEX SCAN REFLUX BILAT Age: 8 1945,79Y Sex: F Sonogrphr: Merced Damon, RVT Pat. Stat.:Outpatient CPT - 4: 76931 Venous Duplex LE/UE Reason for Study:Varicose veins Race: W ++++++++++++++++++++++++++++++++++++ FINDINGS: ++++++++++++++++++++++++++++++++++++ Bilat: No evidence of acute or chronic thrombosis noted in the deep or superficial veins in either lower extremity. Reflux Rt Low Ext: Significant superficial venous reflux > 0.5 sec noted in the at knee to mid calf great saphenous vein. Reflux extends into tributaries at the proximal calf. Unable to visualize the saphenopopliteal junction. Cluster of varicosities extending from pelvis noted, no reflux noted. No evidence of deep venous reflux noted. Reflux Lt Low Ext: Significant superficial venous reflux > 0.5 sec noted in the proximal to mid calf great saphenous vein. Unable to visualize the saphenopopliteal junction. No evidence of deep venous reflux noted. Reflux portion of exam was performed with patient in the upright position. ++++++++++++++++++++++++++++++++++++ MEASUREMENTS: ++++++++++++++++++++++++++++++++++++ REFLUX Right CFV CFV 0 sec Right Mid FV Mid FV 0 sec Right Pop V Pop V 0 sec Right SFJ GSV SFJ 8 mm GSV SFJ 0 sec Right Prox Thigh GSV Prox Thigh 6.8 mm GSV Prox Thigh 0 sec Right Mid Thigh GSV Mid Thigh 5.7 mm GSV Mid Thigh 0 sec Right Dist Thigh GSV Dist Thigh 6.3 mm GSV Dist Thigh 0 sec Right Knee GSV Knee 6.5 mm GSV Knee 2 sec Right Mid Calf GSV Mid Calf 5.5 mm Mid Calf 4.1 mm GSV Mid Calf 2.2 sec Mid Calf 0 sec Right Mid SSV Mid 2.5 mm SSV Mid 0 sec Right Prox SSV Prox 4.7 mm SSV Prox 0 sec Right Prox Calf GSV Prox Calf 5.5 mm GSV Prox Calf 2.2 sec Left CFV CFV 0 sec Left Mid FV Mid FV 0 sec Left Pop V Pop V 0 sec Left SFJ GSV SFJ 7.5 mm GSV SFJ 0 sec Left Prox Thigh GSV Prox Thigh 5.4 mm GSV Prox Thigh 0 sec Left Mid Thigh GSV Mid Thigh 5.2 mm GSV Mid Thigh 0 sec Left Dist Thigh GSV Dist Thigh 5.1 mm GSV Dist Thigh 0 sec Left Knee GSV Knee 5.2 mm GSV Knee 0 sec Left Prox Calf GSV Prox Calf 5.5 mm GSV Prox Calf 2 sec Left Mid Calf GSV Mid Calf 4.5 mm GSV Mid Calf 1.7 sec Left Prox SSV Prox 0 mm SSV Prox 0 sec Right Trib Prox Calf Trib Prox Calf 4.5 mm Trib Prox Calf 0.7 sec <Electronic Signature> 07/04/2024 02:18 PM Moustapha Mccabe M.D. Moustapha Mccabe MD VAS Final Result from Last 3 Months Insurance [employer] MEDICARE [facility] MEDIC[facility] Advance Directives * Full Code (Latest Code Status on File) Date Activated Date Inactivated Comments 02/05/2022 3:36 PM 02/05/2022 8:42 PM * Full Code Date Activated Date Inactivated Comments 07/06/2021 12:22 PM 07/08/2021 4:55 PM Care Teams Towboat Captain Relationship Specialty Start Date End Date Adonay Chase MD [address] [place] [address] PCP - General INTERNAL MEDICINE 03/29/16 Madi Mccloud MD [address] [place] [phone] EP Solar Energy Systems Designer CLINICAL CARDIAC ELECTROPHYSIOLOGY 09/29/17 Davide Montaño MD 2 [facility] [address] [address] Pain Medicine 10/14/20 Shelton Rivas MD [address] [place] [address] Consulting Physician CARDIOVASCULAR DISEASE 11/11/21 Cristina Gonzales, WOOD POLE TREATER, METAL HANGING HELPER-C [address] [place] [address] [address] [place] [address] NURSE PRACTITIONER 11/11/21 Wade Trevizo MD [address] [address] ORTHOPAEDIC SURGERY 04/15/23 Moustapha Mccabe MD [address] [place] [address] Consulting Physician INTERNAL MEDICINE 08/05/23 Saad Handy MD [address] [place] [address] INTERVENTIONAL CARDIOLOGY 04/18/24
--- OUTSIDE RECORDS SUMMARY | 2024-08-23 15:24 | XMS_ITS ---
Author Organization Unknown Address [address] [place] [phone] Phone Care Team Providers Care Fender Mechanic Apprentice Name Role Phone SAVANA ALVARADO PA-C Attending [...] DIFF - Collect Date/T isabelle: 08/04/2023 13:13 [facility] ID: [id number] [address] [place], [place], [phone] LOINC: 67948-0 Test Value Unit Reference Range Code Code System Flag WBC 9.7 10^3uL L=4.8 H=10.8 RBC 3.87 10^6uL L=4.20 H=5.40 L HEMOGLOBIN 10.3 g/dL L=12.0 H=16.0 718-7 LOINC L HEMATOCRIT 34.2 VOL% L=37.0 H=47.0 4544-3 LOINC L MCV 88.4 fL L=81.0 H=99.0 MCH 26.6 pg L=27.0 H=32.0 L MCHC 30.1 g/dL L=32.0 H=36.0 L PLATELETS 247 10^3uL L=100 H=400 68380-1 LOINC RDW 14.2 % L=11.7 H=15.5 %GRAN 71.9 % L=40.0 H=70.0 96682-0 LOINC H %LYMPH 16.0 % L=20.0 H=45.0 736-9 LOINC L %MONO 7.7 % L=2.0 H=10.0 23298-7 LOINC %EOS 3.7 % L=0.0 H=6.0 713-8 LOINC %BASO 0.5 % L=0.0 H=3.0 706-2 LOINC #NEUT 7.0 10^3uL L=1.9 H=7.6 30371-2 LOINC #LYMPH 1.6 10^3uL L=0.9 H=4.9 69213-2 LOINC #MONO 0.8 10^3uL L=0.1 H=0.9 52603-4 LOINC #EOS 0.4 10^3uL L=0.0 H=0.6 712-0 LOINC #BASO 0.05 10^3uL L=0.00 H=0.10 35527-2 LOINC #IM GRANS 0.0 10^3uL L=0.0 H=7.0 76174-5 LOINC %IM GRANS 0.2 % L=0.0 H=5.0 71953-9 LOINC %NRB 0.0 L=0.0 H=0.2 16869-0 LOINC #NRB 0.000 L=0.000 H=0.012 91914-1 LOINC MANUAL DIFF NOT INDICATED RBC MORPH NOT INDICATED CRP NON SPECIFIC - Collect D ate/Time: 08/04/2023 13:13 [facility] ID: [id number] [address] [place] [address], [phone] LOINC: 1987-11 Test Value Unit Reference Range Code Code System Flag CRP-NON SPECIFIC < 5.0 mg/L L=0.0 H=10.0 1987-11 LOINC SED RATE - Collect Date/Time : 08/04/2023 13:13 [facility] ID: [id number] [address] [place] [address], [phone] LOINC: Test Value Unit Reference Range Code Code System Flag SED RATE 28 mm/hr L=0 H=20 H US VENOUS RIGHT LE - Complet ed: 08/04/2023 13:21 LOINC: 94451-5 EXAM DESCRIPTION: US VENOUS RIGHT LE REASON [...] Ronan Galicia M.D. KR: KR Report ID: [id number] Reading Location: [place] [address] Social History Type Status Start Date End Date Code Code Syst em Smoking History Never smoker (Never Smoked) 401468017 SNOMED CT Smoking History Former smoker 2301497 SNOMED CT Sex Female Medications Medication Start Date End Date Route Frequency Dose Code Code System Medication Instructions Home Meds Eliquis 2.5MG Oral Tablet 08/30/2017 Unknown ORAL EVERY 12 HOURS 5 MILLIGRAMS 5870544 RxNorm TAKE 5 MILLIGRAMS ORAL EVERY 12 HOURS Metoprolol Tartrate 25MG Oral Tablet 08/30/2017 Unknown ORAL EVERY 12 HOURS 25 MILLIGRAMS 911479 RxNorm TAKE 25 MILLIGRAMS ORAL EVERY 12 HOURS Acetaminophen- diphenhydrAMIN E HCl 500MG-25MG Oral Tablet 08/30/2017 Unknown ORAL NEEDED AT BEDTIME 1 TABLET 4630076 RxNorm TAKE 1 TABLET ORAL NEEDED AT BEDTIME Celecoxib 200MG Oral Capsule 08/30/2017 Unknown ORAL DAILY WITH MEAL 200 MILLIGRAMS 515489 RxNorm TAKE 200 MILLIGRAMS ORAL DAILY WITH MEAL Losartan Potassium-hydr oCHLOROthiazid e 100MG-12.5MG Oral Tablet 08/30/2017 Unknown ORAL ONCE A DAY 0.5 TABLET 190998 RxNorm TAKE 0.5 TABLET ORAL ONCE A DAY Pantoprazole Sodium 40MG Oral Tablet, Enteric Coated 08/30/2017 Unknown ORAL EVERY 12 HOURS 40 MILLIGRAMS 804021 RxNorm TAKE 40 MILLIGRAMS ORAL EVERY 12 HOURS Terazosin HCl 2MG Oral Capsule 08/30/2017 Unknown ORAL AT BEDTIME 2 MILLIGRAMS 517846 RxNorm TAKE 2 MILLIGRAMS ORAL AT BEDTIME VESIcare 10MG Oral Tablet 08/30/2017 Unknown ORAL ONCE A DAY 10 MILLIGRAMS 393295 RxNorm TAKE 10 MILLIGRAMS ORAL ONCE A [...] Status Code Code System A FIB active 51145817 SNOMED-CT Allergies and Adverse Reactions Allergy Substance Reaction Severity Start Date Concern Status Co de Code System No Known Drug Allergies Moderate Active 226416097 SNOMED-CT Plan of Treatment US Venous Right LE (02758) 08/09/2023 Pulmonary Function Test 10/07/2023 CT Chest/Lung WO Contrast (10351) 10/06 Pulmonary Function Test 10/07/2023 CT Chest/Lung WO Contrast (99137) 10/06 Encounters Encounter Diagnosis Start Date Code Code Sys tem Localized edema 08/04/2023 SNOMED-CT Personal Care Team Section Performer Name Performer Role Active Date Inactive Da te Imaging Narrative Notes
--- OUTSIDE RECORDS SUMMARY | 2024-08-23 15:24 | XMS_ITS | Encounter Summary ---
Author Organization [facility] Address [address] [place] [address]. [place], [place] [address] [place] [address] Care Team Providers Care Lithographic Press Feeder Name Role Phone Adonay Chase MD Primary Care Provider [phone] Madi Mccloud MD Unavailable Davide Montaño MD Unavailable Shelton Rivas MD Unavailable Unavailabl Cristina Erazo APRN, NP-C Unavailable Wade Trevizo MD Unavailable [phone] Moustapha Mccabe MD Unavailable Saad Handy MD Unavailable [phone] Encounter Details Date Type Department Care Team (Late st Contact Info) Description 08/12/2023 Abstract [facility] [address] [place] [address] Moustapha Mccabe MD [address] [place] [address] Social History Tobacco Use Types Packs/Day Years Used Date Smoking Tobacco: Former Cigarettes Q uit: 1989 Smokeless Tobacco: Never Alcohol Use Standard Drinks/Week Comments No 0 (1 standard drink = 0.6 oz pur e alcohol) Comments Unknown Sex and Gender Information Value Date Recorded Sex Assigned at Female 08/14/2024 1:38 PM RN SANE Legal Sex Female 8:33 PM CDT Gender Identity Not on file Sexual Orientation Not on file Occupation Industry Job Start Date Job End Date Not on file Not on file Not on file Not on file documented as of this encounter Functional Status * RETIRED Are you deaf or do you have serious difficulty hearing Answer Date of Assessment Author Status No 07/06/2021 6:00 AM RN SANE Activ e * RETIRED Are you blind or do you have serious difficulty seeing, even when wearing glasses? Answer Date of Assessment Author Status No 07/06/2021 6:00 AM RN SANE Activ e * Do you have serious difficulty walking or climbing stairs? Answer Date of Assessment Author Status No 07/06/2021 6:00 AM Garrett Stout RN Active * Do you have difficulty dressing or bathing? Answer Date of Assessment Author Status No 07/06/2021 6:00 AM Garrett Stout RN Active * Because of a physical, mental, or emotional condition, do you have difficulty doing errands alone such as visiting a doctor's office or shopping? Answer Date of Assessment Author Status No 07/06/2021 6:00 AM Garrett Stout RN Active documented as of this encounter Mental Status * Because of a physical, mental, or emotional condition, do you have serious difficulty concentrating, remembering, or making decisions? Answer Entry Date Author Status No 07/06/2021 6:00 AM Garrett Stout RN Active documented in this encounter Plan of Treatment Upcoming Encounters Date Type Department Care Team (Late st Contact Info) Description 08/22/2025 2:30 PM RN SANE Office Visit [facility] [address] [place] [address] Cristina Gonzales, SETTLEMENT AGENT, GEOTHERMAL PRODUCTION MANAGER-C [address] [facility] [address] [place] [phone] documented as of this encounter Goals Goal Patient Goal Type Associated Problems Recent Progress Patient-Stated? Author Safety ? Patient/family will have appropriate support at home upon discharge General No Dianelys Silva RN documented as of this encounter Procedures Procedure Name Priority Date/Time Associated Diagnosis Comments CRP (OUTSIDE LAB) Routine 08/04/2023 SED RATE, ERYTHROCYTE, AUTO Routine 08/04/2023 CBC, AUTO, NO DIFF Routine 08/04/2023 documented in this encounter Results * CBC, AUTO, NO DIFF (08/04/2023) WBC 9.7 RBC 3.87 HGB 10.3 HCT 34.2 MCV 88.4 MCH 26.6 MCHC 30.1 RDW 14.2 PLT 247 08/04/2023 us Default History Genericprovider LABORATORY Final Result * CRP (OUTSIDE LAB) (08/04/2023) CRP 5.0 08/04/2023 us Default History Genericprovider LAB-OUTSIDE/ABST RACTED Final Result * SED RATE, ERYTHROCYTE, AUTO (08/04/2023) SED RATE 28 08/04/2023 us Default History Genericprovider LABORATORY Final Result documented in this encounter Visit Diagnoses Not on filedocumented in this encounter Care Teams Lithographic Press Feeder Relationship Specialty Start Date End Date Adonay Chase MD [address] [place] [address] PCP - General INTERNAL MEDICINE 03/29/16 Madi Mccloud MD [address] [place] [phone] EP Drapery Maker CLINICAL CARDIAC ELECTROPHYSIOLOGY 09/29/17 Davide Montaño MD [address] [facility] [address]MON [address] [place] [address] Pain Medicine 10/14/20 Shelton Rivas MD [address] [place] [address] Consulting Physician CARDIOVASCULAR DISEASE 11/11/21 Cristina Gonzales, GABY, GEOTHERMAL PRODUCTION MANAGER-C [address] [place] [address] [address] [place] [address] NURSE PRACTITIONER 11/11/21 Wade Trevizo MD [address] [address] ORTHOPAEDIC SURGERY 04/15/23 Moustapha Mccabe MD [address] [place] [address] Consulting Physician INTERNAL MEDICINE 08/05/23 Saad Handy MD [address] [place] [address] INTERVENTIONAL CARDIOLOGY 04/18/24 documented as of this encounter
--- OUTSIDE RECORDS SUMMARY | 2024-08-23 15:24 | XMS_ITS | Encounter Summary ---
Author Organization [facility] Address [address] [place] [address]. [place], [place] [address] [place] [address] Care Team Providers Care Spreader Operator Automatic Name Role Phone Adonay Chase MD Primary Care Provider [phone] Madi Mccloud MD Unavailable Davide Montaño MD Unavailable Shelton Rivas MD Unavailable Unavailabl Cristina Erazo APRN, NP-C Unavailable Wade Trevizo MD Unavailable [phone] Moustapha Mccabe MD Unavailable Saad Handy MD Unavailable [phone] Encounter Details Date Type Department Care Team (Late st Contact Info) Description 01/27/2022 Pre-Procedure Call [facility] Lab Pre/Post [address] [place] [address] Shelton Rivas MD Social History Tobacco Use Types Packs/Day Years Used Date Smoking Tobacco: Former Cigarettes Q uit: 1989 Smokeless Tobacco: Never Alcohol Use Standard Drinks/Week Comments No 0 (1 standard drink = 0.6 oz pur e alcohol) Comments Unknown Sex and Gender Information Value Date Recorded Sex Assigned at Female 08/14/2024 1:38 PM UNIFORM DESIGNER Legal Sex Female 8:33 PM CDT Gender Identity Not on file Sexual Orientation Not on file Occupation Industry Job Start Date Job End Date Not on file Not on file Not on file Not on file COVID-19 Exposure Response Date Recorded In the last 10 days, have yo u been in contact with someone who was confirmed or suspected to have Coronavirus/COVID-19? No / Unsure 01/18/2022 9:45 AM CDT documented as of this encounter Functional Status * RETIRED Are you deaf or do you have serious difficulty hearing Answer Date of Assessment Author Status No 07/06/2021 6:00 AM UNIFORM DESIGNER Activ e * RETIRED Are you blind or do you have serious difficulty seeing, even when wearing glasses? Answer Date of Assessment Author Status No 07/06/2021 6:00 AM UNIFORM DESIGNER Activ e * Do you have serious [...] Upcoming Encounters Date Type Department Care Team ([facility] st Contact Info) Description 08/22/2025 2:30 PM UNIFORM DESIGNER [facility] [address] [place] [phone] Cristina Gonzales, CALL SPECIALIST, ANIMATION CAMERA OPERATOR-C [address] [facility] [address] [place] [address] documented as of this encounter Goals Goal Patient Goal Type Associated Problems Recent Progress Patient-Stated? Author Safety ? Patient/family will have appropriate support at home upon discharge General No Dianelys Silva RN documented as of this encounter Visit Diagnoses Not on filedocumented in this encounter Care Teams Spreader Operator Automatic Relationship Specialty Start Date End Date Adonay Chase MD [address] [place] [phone] PCP - General INTERNAL MEDICINE 03/29/16 Madi Mccloud MD [address] [place] [phone] EP Manager Of Hospital CLINICAL CARDIAC ELECTROPHYSIOLOGY 09/29/17 Davide Montaño MD [address] [facility] [address]MON [address] [place] [address] Pain Medicine 10/14/20 Shelton Rivas MD [address] [place] [address] [address] [place] [address] Consulting Physician CARDIOVASCULAR DISEASE 11/11/21 Cristina Gonzales, GABY, ANIMATION CAMERA OPERATOR-C [address] [place] [address] [phone] NURSE PRACTITIONER 11/11/21 Wade Trevizo MD [address] [address] ORTHOPAEDIC SURGERY 04/15/23 Moustapha Mccabe MD [address] [place] [address] Consulting Physician INTERNAL MEDICINE 08/05/23 Saad Handy MD [address] [place] [address] INTERVENTIONAL CARDIOLOGY 04/18/24 documented as of this encounter
--- OUTSIDE RECORDS SUMMARY | 2024-08-23 15:24 | XMS_ITS ---
Author Organization Unknown Address [address] [place] [phone] Phone Care Team Providers Care Chain Hooker Name Role Phone RADHA VILCHIS CHEMISTRY LECTURER Attending Unavailable TRENTON LINARES Primary Unavailable Immunization [...] 50 mcg/0.25mL dose 06/01/2021 Completed 207 CVX Social History Type Status Start Date End Date Code Code Syst em Smoking History Never smoker (Never Smoked) 706609547 SNOMED CT Smoking History Former smoker 6192525 SNOMED CT Sex Female Medications Medication Start Date End Date Route Frequency Dose Code Code System Medication Instructions Home Meds Eliquis 2.5MG Oral Tablet 08/30/2017 Unknown ORAL EVERY 12 HOURS 5 MILLIGRAMS 6709476 RxNorm TAKE 5 MILLIGRAMS ORAL EVERY 12 HOURS Metoprolol Tartrate 25MG Oral Tablet 08/30/2017 Unknown ORAL EVERY 12 HOURS 25 MILLIGRAMS 213604 RxNorm TAKE 25 MILLIGRAMS ORAL EVERY 12 HOURS Acetaminophen- diphenhydrAMIN E HCl 500MG-25MG Oral Tablet 08/30/2017 Unknown ORAL NEEDED AT BEDTIME 1 TABLET 8722429 RxNorm TAKE 1 TABLET ORAL NEEDED AT BEDTIME Celecoxib 200MG Oral Capsule 08/30/2017 Unknown ORAL DAILY WITH MEAL 200 MILLIGRAMS 255918 RxNorm TAKE 200 MILLIGRAMS ORAL DAILY WITH MEAL Losartan Potassium-hydr oCHLOROthiazid e 100MG-12.5MG Oral Tablet 08/30/2017 Unknown ORAL ONCE A DAY 0.5 TABLET 136080 RxNorm TAKE 0.5 TABLET ORAL ONCE A DAY Pantoprazole Sodium 40MG Oral Tablet, Enteric Coated 08/30/2017 Unknown ORAL EVERY 12 HOURS 40 MILLIGRAMS 316910 RxNorm TAKE 40 MILLIGRAMS ORAL EVERY 12 HOURS Terazosin HCl 2MG Oral Capsule 08/30/2017 Unknown ORAL AT BEDTIME 2 MILLIGRAMS 811254 RxNorm TAKE 2 MILLIGRAMS ORAL AT BEDTIME VESIcare 10MG Oral Tablet 08/30/2017 Unknown ORAL ONCE A DAY 10 MILLIGRAMS 339856 RxNorm TAKE 10 MILLIGRAMS ORAL ONCE A [...] Status Code Code System A FIB active 45863769 SNOMED-CT Allergies and Adverse Reactions Allergy Substance Reaction Severity Start Date Concern Status Co de Code System No Known Drug Allergies Moderate Active 878564819 SNOMED-CT Plan of Treatment US Venous Right LE (79494) 08/09/2023 Pulmonary Function Test 10/07/2023 CT Chest/Lung WO Contrast (66851) 10/06 Pulmonary Function Test 10/07/2023 CT Chest/Lung WO Contrast (89092) 10/06 Encounters Encounter Diagnosis Start Date Code Code Sys tem Radiculopathy, cervical region 04/05/2024 SNOMED-CT Personal Care Team Section Performer Name Performer Role Active Date Inactive Da te
--- OUTSIDE RECORDS SUMMARY | 2024-08-23 15:24 | XMS_ITS | Encounter Summary ---
Author Organization [facility] Address [address] [place] [address]. [place], [place] [address] [place] [address] Care Team Providers Care Excavator Backhoe Operator Name Role Phone Adonay Chase MD Primary Care Provider [phone] Madi Mccloud MD Unavailable Davide Montaño MD Unavailable Shelton Rivas MD Unavailable Unavailabl Cristina Erazo APRN, NP-C Unavailable Wade Trevizo MD Unavailable [phone] Moustapha Mccabe MD Unavailable Saad Handy MD Unavailable [phone] Encounter Details Date Type Department Care Team (Late st Contact Info) Description 08/14/2024 Orders Only [facility] [address] [place] [address] Madina Zavaleta MD [address] [facility] [address] [place] [address] Social History Tobacco Use Types Packs/Day Years Used Date Smoking Tobacco: Former Cigarettes Q uit: 1989 Passive Smoke Exposure: Past Smokeless Tobacco: Never Alcohol Use Standard Drinks/Week Comments No 0 (1 standard drink = 0.6 oz pur e alcohol) Comments Unknown Sex and Gender Information Value Date Recorded Sex Assigned at Female 08/14/2024 1:38 PM HVAC SERVICE TECH Legal Sex Female 8:33 PM CDT Gender [...] Assessment Author Status No 07/06/2021 6:00 AM HVAC SERVICE TECH Activ e * RETIRED Are you blind or do you have serious difficulty seeing, even when wearing glasses? Answer Date of Assessment Author Status No 07/06/2021 6:00 AM HVAC SERVICE TECH Activ e * Do you have serious [...] st Contact Info) Description 08/22/2025 2:30 PM HVAC SERVICE TECH [facility] [address] [place] [phone] Cristina Gonzales, HEARINGS REPORTER, SURFACING TECHNICIAN-C [address] [facility] [address] [place] [address] documented as of this encounter Goals Goal Patient Goal Type Associated Problems Recent Progress Patient-Stated? Author Safety ? Patient/family will have appropriate support at home upon discharge General No Dianelys iSlva RN documented as of this encounter Results * ELECTROCARDIOGRAM (08/14/2024 1:56 PM HVAC SERVICE TECH) 08/14/2024 1:56 PM HVAC SERVICE TECH Narrative [facility] - 08/15/2024 11:37 AM HVAC SERVICE TECH ? [facility] ?[address] [place], [place] ??[address] ? Test Date: ?2024-08-14 Pat Name: ? FRIEDA GANDARA ?Department: ?? 105 ? Room: ? Gender: ? Female ? Rn Military: ?? : ?1945 ? Requested By: MADINA ZAVALETA Order Number: [id number] ?Reading MD: ?? Madina Zavaleat ? Measurements Intervals ?[place] ? Rate: ? 71 ? P: ?79 MA: ? 159 ?QRS: ?84 QRSD: ? 88 ? T: ?60 QT: ? 398 ? QTc: ?433 ? Interpretive Statements SINUS RHYTHM SERVICE TECH Procedure Note Madina Zavaleta MD - 08/15/2024 [facility], [place] [address] [place] [address] Test Date: 2024-08-14 Pat Name: FRIEDA GANDARA Department: 105 Room: Gender: Female Rn Military: : 1945 Requested By: MADINA ZAVALETA Order Number: [id number] Thao MD: Madina Zavaleta Measurements Intervals [place] Rate: 71 P: 79 MA: 159 QRS: 84 QRSD: 88 T: 60 QT: 398 QTc: 433 Interpretive Statements SINUS RHYTHM SERVICE TECH us Madina Zavaleta MD PROCEDURES-ORDERABLE NO CHARG E Final Result [facility] documented in this encounter Visit Diagnoses Diagnosis Preoperative cardiovascular examination- Primary Pre-operative cardiovascular examination Coronary artery disease involving [place] coronary artery of [place] heart without angina pectoris Paroxysmal atrial fibrillation (CMS/HCC HHS/HCC) Atrial fibrillation Essential (primary) hypertension Unspecified essential hypertension Mixed hyperlipidemia Preoperative cardiovascular examination- Primary Pre-operative cardiovascular examination Coronary artery disease involving [place] coronary artery of [place] heart without angina pectoris Essential (primary) hypertension Unspecified essential hypertension Mixed hyperlipidemia assisted use of drug Encounter for long-term (current) use of other medications Chronic anticoagulation Encounter for long-term (current) use of anticoagulants documented in this encounter Care Teams Excavator Backhoe Operator Relationship Specialty Start Date End Date Adonay Chase MD [address] [place] [address] PCP - General INTERNAL MEDICINE 03/29/16 Madi Mccloud MD [address] [place] [phone] EP Wire Winding Machine Tender CLINICAL CARDIAC ELECTROPHYSIOLOGY 09/29/17 Davide Montaño MD [address] [place] [address] [address] [place] [address] Pain Medicine 10/14/20 Shelton Rivas MD [address] [place] [address] [address] [place] [address] Consulting Physician CARDIOVASCULAR DISEASE 11/11/21 Cristina Gonzales, GABY, SURFACING TECHNICIAN-C [address] [place] [address] [phone] NURSE PRACTITIONER 11/11/21 Wade Trevizo MD [address] [address] ORTHOPAEDIC SURGERY 04/15/23 Moustapha Mccabe MD [address] [place] [address] Consulting Physician INTERNAL MEDICINE 08/05/23 Saad Handy MD [address] [place] [address] INTERVENTIONAL CARDIOLOGY 04/18/24 documented as of this encounter
--- OUTSIDE RECORDS SUMMARY | 2024-08-23 15:25 | XMS_ITS ---
Author Organization Unknown Address [address] [place] [phone] Phone Care Team Providers Care Analytical Clerk Name Role Phone TRENTON LINARES Attending Unavailable [...] w/Microscopy - Co llect Date/Time: 11/12/2023 12:30 [facility] ID: [id number] [place], [place], [phone] LOINC: 62085-6 Test Value Unit Reference Range Code Code System Flag UR SOURCE CLEAN CATCH 33123-4 LOINC COLOR YELLOW YELLOW 5778-6 LOINC CLARITY CLEAR CLEAR 71640-9 LOINC SPEC GRAVITY 1.025 1.000-1.030 5811-5 LOINC PH 6.0 5.0 - 6.5 5803-2 LOINC LEUK EST NEGATIVE NEGATIVE 5799-2 LOINC NITRATE NEGATIVE NEGATIVE PROTEIN NEGATIVE NEGATIVE 5804-0 LOINC GLUCOSE NEGATIVE NEGATIVE 55978-3 LOINC KETONES NEGATIVE NEGATIVE 52386-7 LOINC UROBILINOGEN 1.0 NEGATIVE 5818-0 LOINC BILIRUBIN NEGATIVE NEGATIVE 70315-6 LOINC BLOOD NEGATIVE NEGATIVE 14791-9 LOINC WBC 0-2 0 - 2 20179-8 LOINC RBC 0-2 0 - 2 44983-9 LOINC EPITHELIAL MANY RARE-FEW 77846-0 LOINC A BACTERIA FEW NONE SEEN 10908-1 LOINC MUCUS NONE SEEN NONE SEEN 8247-9 LOINC YEAST NOT PRESENT NOT PRESENT 39100-3 LOINC CASTS NONE SEEN 70765-7 LOINC CRYSTALS NONE SEEN 67782-4 LOINC MICROALBUMIN - Collect Date/ Time: 11/12/2023 12:30 [facility] ID: [id number] [address] [place], [place], [phone] LOINC: 54125-1 Test Value Unit Reference Range Code Code System Flag MICROALBUMIN 15.3 mg/L L=0.0 H=16.7 75691-4 LOINC UR CREATININE 229.00 mg/dL L=30.00 H=125 2161-8 LOINC H MA/CR 6.7 mg/gCR CBC W/O DIFF - Collect Date/ Time: 11/12/2023 07:42 [facility] ID: [id number] [place], [place], [id number] LOINC: 09331-8 Test Value Unit Reference Range Code Code System Flag WBC 6.7 10^3uL L=4.8 H=10.8 RBC 4.94 10^6uL L=4.20 H=5.40 HEMOGLOBIN 12.1 g/dL L=12.0 H=16.0 718-7 LOINC HEMATOCRIT 39.7 VOL% L=37.0 H=47.0 4544-3 LOINC MCV 80.4 fL L=81.0 H=99.0 L MCH 24.5 pg L=27.0 H=32.0 L MCHC 30.5 g/dL L=32.0 H=36.0 L PLATELETS 249 10^3uL L=100 H=400 06976-7 LOINC RDW 18.4 % L=11.7 H=15.5 H IRON PANEL - Collect Date/Ti me: 11/12/2023 07:42 [facility] ID: [id number] [address] [place] [address], [phone] LOINC: Test Value Unit Reference Range Code Code System Flag IRON 52 ug/dL L=37 H=170 2498-4 LOINC TIBC 446 ug/dL L=265 H=497 2500-7 LOINC %SATURATION 12 % L=13 H=45 2708-6 LOINC L CPK - Collect Date/Time: 07:42 [facility] ID: [id number] [address] [place], [place], [phone] LOINC: 2157-6 Test Value Unit Reference Range Code Code System Flag CPK 205 U/L L=30 H=170 2157-6 LOINC H T4 FREE - Collect Date/Time: 11/12/2023 07:42 [facility] ID: [id number] [address] [place] [address], [phone] LOINC: 3024-7 Test Value Unit Reference Range Code Code System Flag T4, FREE 0.82 ng/dL L=0.78 H=2.19 3024-7 LOINC FREE T3 - Collect Date/Time: 11/12/2023 07:42 [facility] ID: [id number] [address] [place] [address], [id number] LOINC: 3051-0 Test Value Unit Reference Range Code Code System Flag FREE T3 2.47 pg/mL L=2.77 H=5.27 3051-0 LOINC L PRO BNP - Collect Date/Time: 11/12/2023 07:42 [facility] ID: [id number] [address] [place] [address], [id number] LOINC: 73709-7 Test Value Unit Reference Range Code Code System Flag Pro BNP2 52 pg/mL L=0 N=9493 22208-8 LOINC HGB A1C -GLYCOHEMOGLOBIN - C ollect Date/Time: 11/12/2023 07:42 [facility] ID: [id number] [address] [place] [address], [phone] LOINC: 4548-4 Test Value Unit Reference Range Code Code System Flag HGBA1C 5.8 % 4548-4 LOINC TSH - Collect Date/Time: 07:42 [facility] ID: [id number] [address] [place] [address], [id number] LOINC: 37705-8 Test Value Unit Reference Range Code Code System Flag TSH. 2.770 uIU/L L=0.470 H=4.680 54346-7 LOINC LIPID PANEL - Collect Date/T isabelle: 11/12/2023 07:42 [facility] ID: [id number] [address] [place] [address], [phone] LOINC: 98761-9 Test Value Unit Reference Range Code Code System Flag FASTING NO CHOLESTEROL 156 mg/dL L=0 H=200 3-3 LOINC TRIGLYCERIDE 155 mg/dL L=0 H=150 2571-8 LOINC H HDL 31 mg/dL L=40 H=60 2084-9 LOINC L LDL 104 mg/dL 2088- LOINC VITAMIN B-12 - Collect Date/ Time: 11/12/2023 07:42 [facility] ID: [id number] [place], [id number] LOINC: 2139 Test Value Unit Reference Range Code Code System Flag VITAMIN B12 311 pq/mL L=239 H=931 COMPREHENSIVE METABOLIC PANE L - Collect Date/Time: 11/12/2023 07:42 [facility] ID: [id number] [address] [place] [address], [id number] LOINC: 12692-0 Test Value Unit Reference Range Code Code [...] 8-9 LOINC ANION GAP 13 L=10 H=20 92751-5 LOINC OSMOLALITY 298 mOs/kG L=280 H=296 22733-8 LOINC H BUN/CREAT 31.4 3097-3 LOINC CALCIUM 9.3 mg/dL L=8.3 H=10.5 82563-3 LOINC AST 31 U/L L=15 H=46 1920-8 LOINC ALT 30 U/L L=9 H=72 1742-6 LOINC ALKALINE PHOS 110 U/L L=38 H=126 6768-6 LOINC TOTAL BILI 0.5 mg/dL L=0.2 H=1.3 1975-2 LOINC ALBUMIN 4.2 G/dL L=3.5 H=5.0 1751-7 LOINC TOTAL PROTEIN 7.2 g/L L=6.3 H=8.2 2885-2 LOINC A/G RATIO 1.4 18117-1 LOINC AGE 78 54577-0 LOINC eGFR NON-AFR 86 ml/min eGFR AFR AMER 104 ml/min Social History Type Status Start Date End Date Code Code Syst em Smoking History Never smoker (Never Smoked) 280706150 SNOMED CT Smoking History Former smoker 9527006 SNOMED CT Sex Female Medications Medication Start Date End Date Route Frequency Dose Code Code System Medication Instructions Home Meds Eliquis 2.5MG Oral Tablet 08/30/2017 Unknown ORAL EVERY 12 HOURS 5 MILLIGRAMS 9035992 RxNorm TAKE 5 MILLIGRAMS ORAL EVERY 12 HOURS Metoprolol Tartrate 25MG Oral Tablet 08/30/2017 Unknown ORAL EVERY 12 HOURS 25 MILLIGRAMS 058052 RxNorm TAKE 25 MILLIGRAMS ORAL EVERY 12 HOURS Acetaminophen- diphenhydrAMIN E HCl 500MG-25MG Oral Tablet 08/30/2017 Unknown ORAL NEEDED AT BEDTIME 1 TABLET 1567060 RxNorm TAKE 1 TABLET ORAL NEEDED AT BEDTIME Celecoxib 200MG Oral Capsule 08/30/2017 Unknown ORAL DAILY WITH MEAL 200 MILLIGRAMS 898651 RxNorm TAKE 200 MILLIGRAMS ORAL DAILY WITH MEAL Losartan Potassium-hydr oCHLOROthiazid e 100MG-12.5MG Oral Tablet 08/30/2017 Unknown ORAL ONCE A DAY 0.5 TABLET 765239 RxNorm TAKE 0.5 TABLET ORAL ONCE A DAY Pantoprazole Sodium 40MG Oral Tablet, Enteric Coated 08/30/2017 Unknown ORAL EVERY 12 HOURS 40 MILLIGRAMS 341663 RxNorm TAKE 40 MILLIGRAMS ORAL EVERY 12 HOURS Terazosin HCl 2MG Oral Capsule 08/30/2017 Unknown ORAL AT BEDTIME 2 MILLIGRAMS 132517 RxNorm TAKE 2 MILLIGRAMS ORAL AT BEDTIME VESIcare 10MG Oral Tablet 08/30/2017 Unknown ORAL ONCE A DAY 10 MILLIGRAMS 385693 RxNorm TAKE 10 MILLIGRAMS ORAL ONCE A [...] Status Code Code System A FIB active 07867578 SNOMED-CT Allergies and Adverse Reactions Allergy Substance Reaction Severity Start Date Concern Status Co de Code System No Known Drug Allergies Moderate Active 625373947 SNOMED-CT Plan of Treatment US Venous Right LE (61715) 08/09/2023 Pulmonary Function Test 10/07/2023 CT Chest/Lung WO Contrast (48551) 10/06 Pulmonary Function Test 10/07/2023 CT Chest/Lung WO Contrast (47187) 10/06 Encounters Encounter Diagnosis Start Date Code Code Sys tem 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
--- OUTSIDE RECORDS SUMMARY | 2024-08-23 15:25 | XMS_ITS ---
Author Organization Unknown Address [address] [place] [address] [phone] Phone Care Team Providers Care Flash Oven Operator Name Role Phone TRENTON LINARES Attending Unavailable [...] Recent guidelines by the Fleischner Society (Radiology 374873,2017) divides patient into low vs. high risk [...] immunosuppression, or patients with known primary cancer. http://pubs.rsna.org/doi/pdf/10.1148/radiol.1026925421 THIS IS AN ELECTRONICALLY VERIFIED FINAL REPORT 10/10/2023 8:00 AM - Electronically signed by Shelton Villarreal M.D. RB: DESIREE Report ID: [id number] Reading Location: [id number] Social History Type Status Start Date End Date Code Code Syst em Smoking History Never smoker (Never Smoked) 952805041 SNOMED CT Smoking History Former smoker 1470734 SNOMED CT Sex Female Medications Medication Start Date End Date Route Frequency Dose Code Code System Medication Instructions Home Meds Eliquis 2.5MG Oral Tablet 08/30/2017 Unknown ORAL EVERY 12 HOURS 5 MILLIGRAMS [id number] RxNorm TAKE 5 MILLIGRAMS ORAL EVERY 12 HOURS Metoprolol Tartrate 25MG Oral Tablet 08/30/2017 Unknown ORAL EVERY 12 HOURS 25 MILLIGRAMS 992976 RxNorm TAKE 25 MILLIGRAMS ORAL EVERY 12 HOURS Acetaminophen- diphenhydrAMIN E HCl 500MG-25MG Oral Tablet 08/30/2017 Unknown ORAL NEEDED AT BEDTIME 1 TABLET 5669716 RxNorm TAKE 1 TABLET ORAL NEEDED AT BEDTIME Celecoxib 200MG Oral Capsule 08/30/2017 Unknown ORAL DAILY WITH MEAL 200 MILLIGRAMS 226649 RxNorm TAKE 200 MILLIGRAMS ORAL DAILY WITH MEAL Losartan Potassium-hydr oCHLOROthiazid e 100MG-12.5MG Oral Tablet 08/30/2017 Unknown ORAL ONCE A DAY 0.5 TABLET 929082 RxNorm TAKE 0.5 TABLET ORAL ONCE A DAY Pantoprazole Sodium 40MG Oral Tablet, Enteric Coated 08/30/2017 Unknown ORAL EVERY 12 HOURS 40 MILLIGRAMS 936537 RxNorm TAKE 40 MILLIGRAMS ORAL EVERY 12 HOURS Terazosin HCl 2MG Oral Capsule 08/30/2017 Unknown ORAL AT BEDTIME 2 MILLIGRAMS 731641 RxNorm TAKE 2 MILLIGRAMS ORAL AT BEDTIME VESIcare 10MG Oral Tablet 08/30/2017 Unknown ORAL ONCE A DAY 10 MILLIGRAMS 567301 RxNorm TAKE 10 MILLIGRAMS ORAL ONCE A [...] Status Code Code System A FIB active 78416138 SNOMED-CT Allergies and Adverse Reactions Allergy Substance Reaction Severity Start Date Concern Status Co de Code System No Known Drug Allergies Moderate Active 779458982 SNOMED-CT Plan of Treatment US Venous Right LE (84566) 08/09/2023 Pulmonary Function Test 10/07/2023 CT Chest/Lung WO Contrast (51294) 10/06 Pulmonary Function Test 10/07/2023 CT Chest/Lung WO Contrast (34274) 10/06 Encounters Encounter Diagnosis Start Date Code Code Sys tem Shortness of breath 10/07/2023 SNOMED-C T Personal Care Team Section Performer Name Performer Role Active Date Inactive Da te Imaging Narrative Notes
--- OUTSIDE RECORDS SUMMARY | 2024-08-23 15:25 | XMS_ITS ---
Author Organization Unknown Address [address] [place] [address] [phone] Phone Care Team Providers Care Air Boatswain Name Role Phone OSMAN Burch Attending Unavailable [...] Daniel Diaz M.D. MF: MAGDA Report ID: [id number] Reading Location: [place] [address] Social History Type Status Start Date End Date Code Code Syst em Smoking History Never smoker (Never Smoked) 176787964 SNOMED CT Smoking History Former smoker 0653168 SNOMED CT Sex Female Medications Medication Start Date End Date Route Frequency Dose Code Code System Medication Instructions Home Meds Eliquis 2.5MG Oral Tablet 08/30/2017 Unknown ORAL EVERY 12 HOURS 5 MILLIGRAMS 6447451 RxNorm TAKE 5 MILLIGRAMS ORAL EVERY 12 HOURS Metoprolol Tartrate 25MG Oral Tablet 08/30/2017 Unknown ORAL EVERY 12 HOURS 25 MILLIGRAMS 786660 RxNorm TAKE 25 MILLIGRAMS ORAL EVERY 12 HOURS Acetaminophen- diphenhydrAMIN E HCl 500MG-25MG Oral Tablet 08/30/2017 Unknown ORAL NEEDED AT BEDTIME 1 TABLET 8788682 RxNorm TAKE 1 TABLET ORAL NEEDED AT BEDTIME Celecoxib 200MG Oral Capsule 08/30/2017 Unknown ORAL DAILY WITH MEAL 200 MILLIGRAMS 084222 RxNorm TAKE 200 MILLIGRAMS ORAL DAILY WITH MEAL Losartan Potassium-hydr oCHLOROthiazid e 100MG-12.5MG Oral Tablet 08/30/2017 Unknown ORAL ONCE A DAY 0.5 TABLET 920407 RxNorm TAKE 0.5 TABLET ORAL ONCE A DAY Pantoprazole Sodium 40MG Oral Tablet, Enteric Coated 08/30/2017 Unknown ORAL EVERY 12 HOURS 40 MILLIGRAMS 511288 RxNorm TAKE 40 MILLIGRAMS ORAL EVERY 12 HOURS Terazosin HCl 2MG Oral Capsule 08/30/2017 Unknown ORAL AT BEDTIME 2 MILLIGRAMS 688172 RxNorm TAKE 2 MILLIGRAMS ORAL AT BEDTIME VESIcare 10MG Oral Tablet 08/30/2017 Unknown ORAL ONCE A DAY 10 MILLIGRAMS 451787 RxNorm TAKE 10 MILLIGRAMS ORAL ONCE A [...] Status Code Code System A FIB active 37391756 SNOMED-CT Allergies and Adverse Reactions Allergy Substance Reaction Severity Start Date Concern Status Co de Code System No Known Drug Allergies Moderate Active 747744974 SNOMED-CT Plan of Treatment US Venous Right LE (06939) 08/09/2023 Pulmonary Function Test 10/07/2023 CT Chest/Lung WO Contrast (76203) 10/06 Pulmonary Function Test 10/07/2023 CT Chest/Lung WO Contrast (66543) 10/06 Encounters Encounter Diagnosis Start Date Code Code Sys tem Hip joint prosthesis present 11/25/2023 926471331 SNOMED-CT Personal Care Team Section Performer Name Performer Role Active Date Inactive Da te Imaging Narrative Notes
--- OUTSIDE RECORDS SUMMARY | 2024-08-23 15:25 | XMS_ITS ---
Author Organization Unknown Address [address] [place] [address] [phone] Phone Care Team Providers Care Billet Sawyer Name Role Phone TRENTON LINARES Attending Unavailable [...] PANEL - Collect Date/T isabelle: 01/04/2024 07:33 [facility] ID: [id number] [place], [place], [phone] LOINC: 91235-7 Test Value Unit Reference Range Code Code System Flag FASTING YES CHOLESTEROL 122 mg/dL L=0 H=200 2093-3 LOINC TRIGLYCERIDE 118 mg/dL L=0 H=150 2571-8 LOINC HDL 34 mg/dL L=40 H=60 5-9 LOINC L LDL 72 mg/dL 2088-1 LOINC SGOT (AST) - Collect Date/Ti me: 01/04/2024 07:33 [facility] ID: [id number] [address] [place] [address], [phone] LOINC: 1920-8 Test Value Unit Reference Range Code Code System Flag AST 29 U/L L=15 H=46 1920-8 LOINC SGPT (ALT) - Collect Date/Ti me: 01/04/2024 07:33 [facility] ID: [id number] [place] [address], [phone] LOINC: 1742-6 Test Value Unit Reference Range Code Code System Flag ALT 26 U/L L=9 H=72 1742-6 LOINC CPK - Collect Date/Time: 11/2023 07:33 [facility] ID: [id number] [address] [place] [address], [phone] LOINC: 2157-6 Test Value Unit Reference Range Code Code System Flag CPK 189 U/L L=30 H=170 2157-6 LOINC H Social History Type Status Start Date End Date Code Code Syst em Smoking History Never smoker (Never Smoked) 369162985 SNOMED CT Smoking History Former smoker 1305245 SNOMED CT Sex Female Medications Medication Start Date End Date Route Frequency Dose Code Code System Medication Instructions Home Meds Eliquis 2.5MG Oral Tablet 08/30/2017 Unknown ORAL EVERY 12 HOURS 5 MILLIGRAMS 5808723 RxNorm TAKE 5 MILLIGRAMS ORAL EVERY 12 HOURS Metoprolol Tartrate 25MG Oral Tablet 08/30/2017 Unknown ORAL EVERY 12 HOURS 25 MILLIGRAMS 600127 RxNorm TAKE 25 MILLIGRAMS ORAL EVERY 12 HOURS Acetaminophen- diphenhydrAMIN E HCl 500MG-25MG Oral Tablet 08/30/2017 Unknown ORAL NEEDED AT BEDTIME 1 TABLET 5198467 RxNorm TAKE 1 TABLET ORAL NEEDED AT BEDTIME Celecoxib 200MG Oral Capsule 08/30/2017 Unknown ORAL DAILY WITH MEAL 200 MILLIGRAMS 833810 RxNorm TAKE 200 MILLIGRAMS ORAL DAILY WITH MEAL Losartan Potassium-hydr oCHLOROthiazid e 100MG-12.5MG Oral Tablet 08/30/2017 Unknown ORAL ONCE A DAY 0.5 TABLET 411478 RxNorm TAKE 0.5 TABLET ORAL ONCE A DAY Pantoprazole Sodium 40MG Oral Tablet, Enteric Coated 08/30/2017 Unknown ORAL EVERY 12 HOURS 40 MILLIGRAMS 684059 RxNorm TAKE 40 MILLIGRAMS ORAL EVERY 12 HOURS Terazosin HCl 2MG Oral Capsule 08/30/2017 Unknown ORAL AT BEDTIME 2 MILLIGRAMS 962436 RxNorm TAKE 2 MILLIGRAMS ORAL AT BEDTIME VESIcare 10MG Oral Tablet 08/30/2017 Unknown ORAL ONCE A DAY 10 MILLIGRAMS 129762 RxNorm TAKE 10 MILLIGRAMS ORAL ONCE A [...] Status Code Code System A FIB active 16064319 SNOMED-CT Allergies and Adverse Reactions Allergy Substance Reaction Severity Start Date Concern Status Co de Code System No Known Drug Allergies Moderate Active 088525931 SNOMED-CT Plan of Treatment US Venous Right LE (39951) 08/09/2023 Pulmonary Function Test 10/07/2023 CT Chest/Lung WO Contrast (03793) 10/06 Pulmonary Function Test 10/07/2023 CT Chest/Lung WO Contrast (21158) 10/06 Encounters Encounter Diagnosis Start Date Code Code Sys tem Mixed hyperlipidemia 01/04/2024 SNOMED- CT Personal Care Team Section Performer Name Performer Role Active Date Inactive Da te
--- OUTSIDE RECORDS SUMMARY | 2024-08-23 15:26 | XMS_ITS ---
Author Organization Unknown Address [address] [place] [address] [phone] Phone Care Team Providers Care Health Assistant Name Role Phone RADHA VILCHIS FARM MORTGAGE AGENT Attending Unavailable TRENTON LINARES Primary Unavailable Immunization [...] em Smoking History Never smoker (Never Smoked) 443270335 SNOMED CT Smoking History Former smoker 9050340 SNOMED CT Sex Female Medications Medication Start Date End Date Route Frequency Dose Code Code System Medication Instructions Home Meds Eliquis 2.5MG Oral Tablet 08/30/2017 Unknown ORAL EVERY 12 HOURS 5 MILLIGRAMS 7059697 RxNorm TAKE 5 MILLIGRAMS ORAL EVERY 12 HOURS Metoprolol Tartrate 25MG Oral Tablet 08/30/2017 Unknown ORAL EVERY 12 HOURS 25 MILLIGRAMS 260335 RxNorm TAKE 25 MILLIGRAMS ORAL EVERY 12 HOURS Acetaminophen- diphenhydrAMIN E HCl 500MG-25MG Oral Tablet 08/30/2017 Unknown ORAL NEEDED AT BEDTIME 1 TABLET 9973279 RxNorm TAKE 1 TABLET ORAL NEEDED AT BEDTIME Celecoxib 200MG Oral Capsule 08/30/2017 Unknown ORAL DAILY WITH MEAL 200 MILLIGRAMS 183219 RxNorm TAKE 200 MILLIGRAMS ORAL DAILY WITH MEAL Losartan Potassium-hydr oCHLOROthiazid e 100MG-12.5MG Oral Tablet 08/30/2017 Unknown ORAL ONCE A DAY 0.5 TABLET 663996 RxNorm TAKE 0.5 TABLET ORAL ONCE A DAY Pantoprazole Sodium 40MG Oral Tablet, Enteric Coated 08/30/2017 Unknown ORAL EVERY 12 HOURS 40 MILLIGRAMS 251346 RxNorm TAKE 40 MILLIGRAMS ORAL EVERY 12 HOURS Terazosin HCl 2MG Oral Capsule 08/30/2017 Unknown ORAL AT BEDTIME 2 MILLIGRAMS 563557 RxNorm TAKE 2 MILLIGRAMS ORAL AT BEDTIME VESIcare 10MG Oral Tablet 08/30/2017 Unknown ORAL ONCE A DAY 10 MILLIGRAMS 989150 RxNorm TAKE 10 MILLIGRAMS ORAL ONCE A [...] Status Code Code System A FIB active 16793317 SNOMED-CT Allergies and Adverse Reactions Allergy Substance Reaction Severity Start Date Concern Status Co de Code System No Known Drug Allergies Moderate Active 684413542 SNOMED-CT Plan of Treatment US Venous Right LE (90673) 08/09/2023 Pulmonary Function Test 10/07/2023 CT Chest/Lung WO Contrast (65256) 10/06 Pulmonary Function Test 10/07/2023 CT Chest/Lung WO Contrast (23347) 10/06 Encounters Encounter Diagnosis Start Date Code Code Sys tem Cervical radiculopathy 03/20/2024 49881669 SNOME D-CT Personal Care Team Section Performer Name Performer Role Active Date Inactive Da te
--- OUTSIDE RECORDS SUMMARY | 2024-08-23 15:26 | XMS_ITS ---
Author Organization Unknown Address [address] [place] [address] [phone] Phone Care Team Providers Care Bicycle Repairman Name Role Phone RADHA VILCHIS CATTLE TRADER Attending Unavailable TRENTON LINARES Primary Unavailable Immunization [...] em Smoking History Never smoker (Never Smoked) 853644570 SNOMED CT Smoking History Former smoker 5522684 SNOMED CT Sex Female Medications Medication Start Date End Date Route Frequency Dose Code Code System Medication Instructions Home Meds Eliquis 2.5MG Oral Tablet 08/30/2017 Unknown ORAL EVERY 12 HOURS 5 MILLIGRAMS 1827339 RxNorm TAKE 5 MILLIGRAMS ORAL EVERY 12 HOURS Metoprolol Tartrate 25MG Oral Tablet 08/30/2017 Unknown ORAL EVERY 12 HOURS 25 MILLIGRAMS 996145 RxNorm TAKE 25 MILLIGRAMS ORAL EVERY 12 HOURS Acetaminophen- diphenhydrAMIN E HCl 500MG-25MG Oral Tablet 08/30/2017 Unknown ORAL NEEDED AT BEDTIME 1 TABLET 6813501 RxNorm TAKE 1 TABLET ORAL NEEDED AT BEDTIME Celecoxib 200MG Oral Capsule 08/30/2017 Unknown ORAL DAILY WITH MEAL 200 MILLIGRAMS 802532 RxNorm TAKE 200 MILLIGRAMS ORAL DAILY WITH MEAL Losartan Potassium-hydr oCHLOROthiazid e 100MG-12.5MG Oral Tablet 08/30/2017 Unknown ORAL ONCE A DAY 0.5 TABLET 578855 RxNorm TAKE 0.5 TABLET ORAL ONCE A DAY Pantoprazole Sodium 40MG Oral Tablet, Enteric Coated 08/30/2017 Unknown ORAL EVERY 12 HOURS 40 MILLIGRAMS 648713 RxNorm TAKE 40 MILLIGRAMS ORAL EVERY 12 HOURS Terazosin HCl 2MG Oral Capsule 08/30/2017 Unknown ORAL AT BEDTIME 2 MILLIGRAMS 175161 RxNorm TAKE 2 MILLIGRAMS ORAL AT BEDTIME VESIcare 10MG Oral Tablet 08/30/2017 Unknown ORAL ONCE A DAY 10 MILLIGRAMS 588024 RxNorm TAKE 10 MILLIGRAMS ORAL ONCE A [...] Status Code Code System A FIB active 31823851 SNOMED-CT Allergies and Adverse Reactions Allergy Substance Reaction Severity Start Date Concern Status Co de Code System No Known Drug Allergies Moderate Active 425575621 SNOMED-CT Plan of Treatment US Venous Right LE (40633) 08/09/2023 Pulmonary Function Test 10/07/2023 CT Chest/Lung WO Contrast (86438) 10/06 Pulmonary Function Test 10/07/2023 CT Chest/Lung WO Contrast (03945) 10/06 Encounters Encounter Diagnosis Start Date Code Code Sys tem Radiculopathy, cervical region 04/05/2024 SNOMED-CT Personal Care Team Section Performer Name Performer Role Active Date Inactive Da te
== END 2024-08-21 06:44 | disposition home or self-care (01) ==
PROVIDERS: PCP Internal Medicine; Visit Provider Orthopaedic Surgery
DX: M19.011 Primary osteoarthritis, right shoulder (principal); E78.5 Hyperlipidemia, unspecified
CPT/HCPCS: 36415; 73200; 82040; 82565; 82947; 85014; 85018

== ENCOUNTER 2024-10-17 09:25 | Outpatient (CLI) | payer MEDICARE, SELFPAY ==
--- OUTSIDE RECORDS SUMMARY | 2024-10-17 10:27 | XMS_ITS ---
Author Organization Unknown Address [address] [place] [address] [phone] Phone Care Team Providers Care Ocean Export Account Manager Name Role Phone TRENTON LINARES Attending Unavailable [...] 01/04/2024 07:33 [facility] ID: [id number] [place], [place], [phone] LOINC: 43279-4 Test Value Unit Reference Range Code Code System Flag FASTING YES CHOLESTEROL 122 mg/dL L=0 H=200 3-3 LOINC TRIGLYCERIDE 118 mg/dL L=0 H=150 1-8 LOINC HDL 34 mg/dL L=40 H=60 2084-9 LOINC L LDL 72 mg/dL 2088- LOINC SGOT (AST) - Collect Date/Ti me: 01/04/2024 07:33 [facility] ID: [id number] [place] [address], [id number] LOINC: 1920-8 Test Value Unit Reference Range Code Code System Flag AST 29 U/L L=15 H=46 1920-8 LOINC SGPT (ALT) - Collect Date/Ti me: 01/04/2024 07:33 [facility] ID: [id number] [place] [address], [id number] LOINC: 1742-6 Test Value Unit Reference Range Code Code System Flag ALT 26 U/L L=9 H=72 1742-6 LOINC CPK - Collect Date/Time: 11/2023 07:33 [facility] ID: [id number] [address] [place] [address], [phone] LOINC: 2157-6 Test Value Unit Reference Range Code Code System Flag CPK 189 U/L L=30 H=170 2157-6 LOINC H Social History Type Status Start Date End Date Code Code Syst em Smoking History Never smoker (Never Smoked) 438624360 SNOMED CT Smoking History Former smoker 3208070 SNOMED CT Sex Female Medications Medication Start Date End Date Route Frequency Dose Code Code System Medication Instructions Home Meds Eliquis 2.5MG Oral Tablet 08/30/2017 Unknown ORAL EVERY 12 HOURS 5 MILLIGRAMS 8096615 RxNorm TAKE 5 MILLIGRAMS ORAL EVERY 12 HOURS Metoprolol Tartrate 25MG Oral Tablet 08/30/2017 Unknown ORAL EVERY 12 HOURS 25 MILLIGRAMS 793594 RxNorm TAKE 25 MILLIGRAMS ORAL EVERY 12 HOURS Acetaminophen- diphenhydrAMIN E HCl 500MG-25MG Oral Tablet 08/30/2017 Unknown ORAL NEEDED AT BEDTIME 1 TABLET 5875867 RxNorm TAKE 1 TABLET ORAL NEEDED AT BEDTIME Celecoxib 200MG Oral Capsule 08/30/2017 Unknown ORAL DAILY WITH MEAL 200 MILLIGRAMS 315412 RxNorm TAKE 200 MILLIGRAMS ORAL DAILY WITH MEAL Losartan Potassium-hydr oCHLOROthiazid e 100MG-12.5MG Oral Tablet 08/30/2017 Unknown ORAL ONCE A DAY 0.5 TABLET 026904 RxNorm TAKE 0.5 TABLET ORAL ONCE A DAY Pantoprazole Sodium 40MG Oral Tablet, Enteric Coated 08/30/2017 Unknown ORAL EVERY 12 HOURS 40 MILLIGRAMS 645914 RxNorm TAKE 40 MILLIGRAMS ORAL EVERY 12 HOURS Terazosin HCl 2MG Oral Capsule 08/30/2017 Unknown ORAL AT BEDTIME 2 MILLIGRAMS 645133 RxNorm TAKE 2 MILLIGRAMS ORAL AT BEDTIME VESIcare 10MG Oral Tablet 08/30/2017 Unknown ORAL ONCE A DAY 10 MILLIGRAMS 761433 RxNorm TAKE 10 MILLIGRAMS ORAL ONCE A [...] Status Code Code System A FIB active 68043744 SNOMED-CT Allergies and Adverse Reactions Allergy Substance Reaction Severity Start Date Concern Status Co de Code System No Known Drug Allergies Moderate Active 032045703 SNOMED-CT Plan of Treatment US Venous Right LE (08729) 08/09/2023 Pulmonary Function Test 10/07/2023 CT Chest/Lung WO Contrast (07632) 10/06 Pulmonary Function Test 10/07/2023 CT Chest/Lung WO Contrast (97399) 10/06 Encounters Encounter Diagnosis Start Date Code Code Sys tem Mixed hyperlipidemia 01/04/2024 SNOMED- CT Personal Care Team Section Performer Name Performer Role Active Date Inactive Da te
--- OUTSIDE RECORDS SUMMARY | 2024-10-17 10:27 | XMS_ITS ---
Author Organization Unknown Address [address] [place] [address] [phone] Phone Care Team Providers Care Knitted Cloth Examiner Name Role Phone RADHA VILCHIS IGNITER ASSEMBLER Attending Unavailable TRENTON LINARES Primary Unavailable Immunization [...] em Smoking History Never smoker (Never Smoked) 706630961 SNOMED CT Smoking History Former smoker 8669491 SNOMED CT Sex Female Medications Medication Start Date End Date Route Frequency Dose Code Code System Medication Instructions Home Meds Eliquis 2.5MG Oral Tablet 08/30/2017 Unknown ORAL EVERY 12 HOURS 5 MILLIGRAMS 4889920 RxNorm TAKE 5 MILLIGRAMS ORAL EVERY 12 HOURS Metoprolol Tartrate 25MG Oral Tablet 08/30/2017 Unknown ORAL EVERY 12 HOURS 25 MILLIGRAMS 904776 RxNorm TAKE 25 MILLIGRAMS ORAL EVERY 12 HOURS Acetaminophen- diphenhydrAMIN E HCl 500MG-25MG Oral Tablet 08/30/2017 Unknown ORAL NEEDED AT BEDTIME 1 TABLET 1496540 RxNorm TAKE 1 TABLET ORAL NEEDED AT BEDTIME Celecoxib 200MG Oral Capsule 08/30/2017 Unknown ORAL DAILY WITH MEAL 200 MILLIGRAMS 919893 RxNorm TAKE 200 MILLIGRAMS ORAL DAILY WITH MEAL Losartan Potassium-hydr oCHLOROthiazid e 100MG-12.5MG Oral Tablet 08/30/2017 Unknown ORAL ONCE A DAY 0.5 TABLET 275673 RxNorm TAKE 0.5 TABLET ORAL ONCE A DAY Pantoprazole Sodium 40MG Oral Tablet, Enteric Coated 08/30/2017 Unknown ORAL EVERY 12 HOURS 40 MILLIGRAMS 041628 RxNorm TAKE 40 MILLIGRAMS ORAL EVERY 12 HOURS Terazosin HCl 2MG Oral Capsule 08/30/2017 Unknown ORAL AT BEDTIME 2 MILLIGRAMS 671852 RxNorm TAKE 2 MILLIGRAMS ORAL AT BEDTIME VESIcare 10MG Oral Tablet 08/30/2017 Unknown ORAL ONCE A DAY 10 MILLIGRAMS 350111 RxNorm TAKE 10 MILLIGRAMS ORAL ONCE A [...] Status Code Code System A FIB active 27663632 SNOMED-CT Allergies and Adverse Reactions Allergy Substance Reaction Severity Start Date Concern Status Co de Code System No Known Drug Allergies Moderate Active 613933906 SNOMED-CT Plan of Treatment US Venous Right LE (07128) 08/09/2023 Pulmonary Function Test 10/07/2023 CT Chest/Lung WO Contrast (88101) 10/06 Pulmonary Function Test 10/07/2023 CT Chest/Lung WO Contrast (55476) 10/06 Encounters Encounter Diagnosis Start Date Code Code Sys tem Radiculopathy, cervical region 04/05/2024 SNOMED-CT Personal Care Team Section Performer Name Performer Role Active Date Inactive Da te
--- OUTSIDE RECORDS SUMMARY | 2024-10-17 10:28 | XMS_ITS ---
Author Organization Unknown Address [address] [place] [address] [phone] Phone Care Team Providers Care Copy Clerk Name Role Phone RADHA VILCHIS DEPENDENCY PROGRAM DIRECTOR Attending Unavailable TRENTON LINARES Primary Unavailable Immunization [...] em Smoking History Never smoker (Never Smoked) [id number] SNOMED CT Smoking History Former smoker 0109077 SNOMED CT Sex Female Medications Medication Start Date End Date Route Frequency Dose Code Code System Medication Instructions Home Meds Eliquis 2.5MG Oral Tablet 08/30/2017 Unknown ORAL EVERY 12 HOURS 5 MILLIGRAMS 5353024 RxNorm TAKE 5 MILLIGRAMS ORAL EVERY 12 HOURS Metoprolol Tartrate 25MG Oral Tablet 08/30/2017 Unknown ORAL EVERY 12 HOURS 25 MILLIGRAMS 935055 RxNorm TAKE 25 MILLIGRAMS ORAL EVERY 12 HOURS Acetaminophen- diphenhydrAMIN E HCl 500MG-25MG Oral Tablet 08/30/2017 Unknown ORAL NEEDED AT BEDTIME 1 TABLET 0474628 RxNorm TAKE 1 TABLET ORAL NEEDED AT BEDTIME Celecoxib 200MG Oral Capsule 08/30/2017 Unknown ORAL DAILY WITH MEAL 200 MILLIGRAMS 277626 RxNorm TAKE 200 MILLIGRAMS ORAL DAILY WITH MEAL Losartan Potassium-hydr oCHLOROthiazid e 100MG-12.5MG Oral Tablet 08/30/2017 Unknown ORAL ONCE A DAY 0.5 TABLET 389589 RxNorm TAKE 0.5 TABLET ORAL ONCE A DAY Pantoprazole Sodium 40MG Oral Tablet, Enteric Coated 08/30/2017 Unknown ORAL EVERY 12 HOURS 40 MILLIGRAMS 881435 RxNorm TAKE 40 MILLIGRAMS ORAL EVERY 12 HOURS Terazosin HCl 2MG Oral Capsule 08/30/2017 Unknown ORAL AT BEDTIME 2 MILLIGRAMS 381742 RxNorm TAKE 2 MILLIGRAMS ORAL AT BEDTIME VESIcare 10MG Oral Tablet 08/30/2017 Unknown ORAL ONCE A DAY 10 MILLIGRAMS 423766 RxNorm TAKE 10 MILLIGRAMS ORAL ONCE A [...] Status Code Code System A FIB active 12250150 SNOMED-CT Allergies and Adverse Reactions Allergy Substance Reaction Severity Start Date Concern Status Co de Code System No Known Drug Allergies Moderate Active 964971649 SNOMED-CT Plan of Treatment US Venous Right LE (41890) 08/09/2023 Pulmonary Function Test 10/07/2023 CT Chest/Lung WO Contrast (47370) 10/06 Pulmonary Function Test 10/07/2023 CT Chest/Lung WO Contrast (05964) 10/06 Encounters Encounter Diagnosis Start Date Code Code Sys tem Cervical radiculopathy 03/20/2024 43499992 SNOME D-CT Personal Care Team Section Performer Name Performer Role Active Date Inactive Da te
--- OUTSIDE RECORDS SUMMARY | 2024-10-17 10:29 | XMS_ITS ---
Author Organization Unknown Address [address] [place] [address] [phone] Phone Care Team Providers Care Bakery Team Leader Name Role Phone TRENTON LINARES Attending Unavailable [...] dose 06/01/2021 Completed 207 CVX Results CBC W/O DIFF - Collect Date/ Time: 09/05/2024 07:36 [facility] ID: [id number] [address] [place] [address], [phone] LOINC: 55863-8 Test Value Unit Reference Range Code Code System Flag WBC 7.7 10^3uL L=4.8 H=10.8 RBC 4.71 10^6uL L=4.20 H=5.40 HEMOGLOBIN 13.4 g/dL L=12.0 H=16.0 718-7 LOINC HEMATOCRIT 43.4 VOL% L=37.0 H=47.0 4544-3 LOINC MCV 92.1 fL L=81.0 H=99.0 MCH 28.5 pg L=27.0 H=32.0 MCHC 30.9 g/dL L=32.0 H=36.0 L PLATELETS 223 10^3uL L=100 H=400 08198-3 LOINC RDW 15.1 % L=11.7 H=15.5 IRON PANEL - Collect Date/Ti me: 09/05/2024 07:36 [facility] ID: [id number] [address] [place] [address], [phone] LOINC: Test Value Unit Reference Range Code Code System Flag IRON 69 ug/dL L=37 H=170 2498-4 LOINC TIBC 403 ug/dL L=265 H=497 2500-7 LOINC %SATURATION 17 % L=13 H=45 2708-6 LOINC FERRITIN - Collect Date/Time : 09/05/2024 07:36 [facility] ID: [id number] [address] [place] [address], [phone] LOINC: 2276-4 Test Value Unit Reference Range Code Code System Flag FERRITIN 18.6 ng/mL L=11.1 H=264 2276-4 LOINC Social History Type Status Start Date End Date Code Code Syst em Smoking History Never smoker (Never Smoked) 883205017 SNOMED CT Smoking History Former smoker 6099630 SNOMED CT Sex Female Medications Medication Start Date End Date Route Frequency Dose Code Code System Medication Instructions Home Meds Eliquis 2.5MG Oral Tablet 08/30/2017 Unknown ORAL EVERY 12 HOURS 5 MILLIGRAMS 5783957 RxNorm TAKE 5 MILLIGRAMS ORAL EVERY 12 HOURS Metoprolol Tartrate 25MG Oral Tablet 08/30/2017 Unknown ORAL EVERY 12 HOURS 25 MILLIGRAMS 663684 RxNorm TAKE 25 MILLIGRAMS ORAL EVERY 12 HOURS Acetaminophen- diphenhydrAMIN E HCl 500MG-25MG Oral Tablet 08/30/2017 Unknown ORAL NEEDED AT BEDTIME 1 TABLET 2942178 RxNorm TAKE 1 TABLET ORAL NEEDED AT BEDTIME Celecoxib 200MG Oral Capsule 08/30/2017 Unknown ORAL DAILY WITH MEAL 200 MILLIGRAMS 387105 RxNorm TAKE 200 MILLIGRAMS ORAL DAILY WITH MEAL Losartan Potassium-hydr oCHLOROthiazid e 100MG-12.5MG Oral Tablet 08/30/2017 Unknown ORAL ONCE A DAY 0.5 TABLET 516620 RxNorm TAKE 0.5 TABLET ORAL ONCE A DAY Pantoprazole Sodium 40MG Oral Tablet, Enteric Coated 08/30/2017 Unknown ORAL EVERY 12 HOURS 40 MILLIGRAMS 546271 RxNorm TAKE 40 MILLIGRAMS ORAL EVERY 12 HOURS Terazosin HCl 2MG Oral Capsule 08/30/2017 Unknown ORAL AT BEDTIME 2 MILLIGRAMS 899195 RxNorm TAKE 2 MILLIGRAMS ORAL AT BEDTIME VESIcare 10MG Oral Tablet 08/30/2017 Unknown ORAL ONCE A DAY 10 MILLIGRAMS 994120 RxNorm TAKE 10 MILLIGRAMS ORAL ONCE A [...] Status Code Code System A FIB active 30172040 SNOMED-CT Allergies and Adverse Reactions Allergy Substance Reaction Severity Start Date Concern Status Co de Code System No Known Drug Allergies Moderate Active 717095523 SNOMED-CT Plan of Treatment US Venous Right LE (99308) 08/09/2023 Pulmonary Function Test 10/07/2023 CT Chest/Lung WO Contrast (92663) 10/06 Pulmonary Function Test 10/07/2023 CT Chest/Lung WO Contrast (40829) 10/06 Encounters Encounter Diagnosis Start Date Code Code Sys tem Iron deficiency anemia, unspecified 09/05/2024 SNOMED-CT Personal Care Team Section Performer Name Performer Role Active Date Inactive Da te
--- OUTSIDE RECORDS SUMMARY | 2024-10-17 10:29 | XMS_ITS | Encounter Summary ---
Author Organization [facility] Address [facility] [place] [address] Care Team Providers Care Back Tender Cylinder Name Role Phone Adonay Chase MD Primary Care Provider [phone] Madi Mccloud MD Unavailable Davide Montaño MD Unavailable Shelton Rivas MD Unavailable Unavailabl Cristina Erazo APRN CONVEYOR WEIGHER OPERATOR-C Unavailable Wade Trevizo MD Unavailable [phone] Moustapha Mccabe MD Unavailable Saad Handy MD Unavailable [phone] Encounter Details Date Type Department Care Team (Late st Contact Info) Description 08/12/2023 Abstract [facility] [address] [place] [address] Moustapha Mccabe MD [address] [facility], [address] [place] [address] Social History Tobacco Use Types Packs/Day Years Used Date Smoking Tobacco: Former Cigarettes Q uit: 1989 Smokeless Tobacco: Never Alcohol Use Standard Drinks/Week Comments No 0 (1 standard drink = 0.6 oz pur e alcohol) Comments Unknown Sex and Gender Information Value Date Recorded Sex Assigned at Female 08/14/2024 1:38 PM PEDIATRIC RADIOLOGIST Legal Sex Female 8:33 PM CDT Gender [...] Assessment Author Status No 07/06/2021 6:00 AM PEDIATRIC RADIOLOGIST Activ e * RETIRED Are you blind or do you have serious difficulty seeing, even when wearing glasses? Answer Date of Assessment Author Status No 07/06/2021 6:00 AM PEDIATRIC RADIOLOGIST Activ e * Do you have serious [...] st Contact Info) Description 08/22/2025 2:30 PM PEDIATRIC RADIOLOGIST [facility] [address] [place] [address] Cristina Gonzales, TITLE INSURANCE EXAMINER, CONVEYOR WEIGHER OPERATOR-C [address] [facility] [address] [place] [address] documented as of this encounter Goals Goal Patient Goal Type Associated Problems Recent Progress Patient-Stated? Author Safety Patient/family will have appropriate support at home upon discharge General No Dianelys Silva RN documented as of this encounter Procedures Procedure Name Priority Date/Time Associated Diagnosis Comments CRP (OUTSIDE LAB) Routine 08/04/2023 SED RATE, ERYTHROCYTE, AUTO Routine 08/04/2023 CBC, AUTO, NO DIFF Routine 08/04/2023 documented in this encounter Results * CBC, AUTO, NO DIFF (08/04/2023) Pathologist [facility] [place] WBC 9.7 RBC 3.87 HGB 10.3 HCT 34.2 MCV 88.4 MCH 26.6 MCHC 30.1 RDW 14.2 PLT 247 08/04/2023 us Default History Genericprovider LABORATORY Final Result * CRP (OUTSIDE LAB) (08/04/2023) Pathologist [facility] [place] CRP 5.0 08/04/2023 us Default History Genericprovider LAB-OUTSIDE/ABST RACTED Final Result * SED RATE, ERYTHROCYTE, AUTO (08/04/2023) Pathologist [facility] [place] SED RATE 28 08/04/2023 us Default History Genericprovider LABORATORY Final Result documented in this encounter Visit Diagnoses Not on filedocumented in this encounter Care Teams Back Tender Cylinder Relationship Specialty Start Date End Date Adonay Chase MD [address] [place] [address] PCP - General INTERNAL MEDICINE 03/29/16 Madi Mccloud MD [address] [place] [address] EP Manager Radio CLINICAL CARDIAC ELECTROPHYSIOLOGY 09/29/17 Davide Montaño MD [address] [place] [address] Pain Medicine 10/14/20 Shelton Rivas MD [address] [place] [address] Consulting Physician CARDIOVASCULAR DISEASE 11/11/21 Cristina Gonzales, GBAY, CONVEYOR WEIGHER OPERATOR-C [address] [facility] [address] [place] [address] NURSE PRACTITIONER 11/11/21 Wade Trevizo MD [address] [facility] [address] [place] [address] ORTHOPAEDIC SURGERY 04/15/23 Moustapha Mccabe MD [address] [address] Consulting Physician INTERNAL MEDICINE 08/05/23 Saad Handy MD [address] [facility] [address] [place] [address] INTERVENTIONAL CARDIOLOGY 04/18/24 documented as of this encounter
--- OUTSIDE RECORDS SUMMARY | 2024-10-17 10:29 | XMS_ITS | Encounter Summary ---
Author Organization [facility] Address [address] [place] [address] Care Team Providers Care Grinding Wheel Operator Name Role Phone Adonay Chase MD Primary Care Provider [phone] Madi Mccloud MD Unavailable Davide Montaño MD Unavailable Shelton Rivas MD Unavailable Unavailabl Cristina Erazo APRN, NP-C Unavailable Wade Trevizo MD Unavailable [phone] Moustapha Mccabe MD Unavailable Saad Handy MD Unavailable [phone] Encounter Details Date Type Department Care Team (Late st Contact Info) Description 01/27/2022 Pre-Procedure Call [facility] Academic Support Coordinator Pre/Post [address] [place] [address] Shelton Rivas MD Social History Tobacco Use Types Packs/Day Years Used Date Smoking Tobacco: Former Cigarettes Q uit: 1989 Smokeless Tobacco: Never Alcohol Use Standard Drinks/Week Comments No 0 (1 standard drink = 0.6 oz pur e alcohol) Comments Unknown Sex and Gender Information Value Date Recorded Sex Assigned at Female 08/14/2024 1:38 PM BILINGUAL ELEMENTARY SCHOOL TEACHER Legal Sex Female 8:33 PM CDT Gender [...] Assessment Author Status No 07/06/2021 6:00 AM BILINGUAL ELEMENTARY SCHOOL TEACHER Activ e * RETIRED Are you blind or do you have serious difficulty seeing, even when wearing glasses? Answer Date of Assessment Author Status No 07/06/2021 6:00 AM BILINGUAL ELEMENTARY SCHOOL TEACHER Activ e * Do you have serious [...] st Contact Info) Description 08/22/2025 2:30 PM BILINGUAL ELEMENTARY SCHOOL TEACHER Office Visit [facility] el[facility] [address] [place] [phone] Cristina Gonzales, DIRECTOR OF SCIENCE, WAREHOUSE TEAM MEMBER-C [address] [facility] [address] [place] [address] documented as of this encounter Goals Goal Patient Goal Type Associated Problems Recent Progress Patient-Stated? Author Safety Patient/family will have appropriate support at home upon discharge General No Dianelys Silva RN documented as of this encounter Visit Diagnoses Not on filedocumented in this encounter Care Teams Grinding Wheel Operator Relationship Specialty Start Date End Date Adonay Chase MD [address] [place] [address] PCP - General INTERNAL MEDICINE 03/29/16 Madi Mccloud MD [address] [place] [phone] EP Pairer Odds CLINICAL CARDIAC ELECTROPHYSIOLOGY 09/29/17 Davide Montaño MD [address] [address] Pain Medicine 10/14/20 Shelton Rivas MD [address] [facility] [address] [place] [address] [place] [address] Consulting Physician CARDIOVASCULAR DISEASE 11/11/21 Cristina Gonzales, DIRECTOR OF SCIENCE, WAREHOUSE TEAM MEMBER-C [address] [facility] [address] [place] [address] NURSE PRACTITIONER 11/11/21 Wade Trevizo MD [address] [address] ORTHOPAEDIC SURGERY 04/15/23 Moustapha Mccabe MD [address] [address] Consulting Physician INTERNAL MEDICINE 08/05/23 Saad Handy MD [address] [address] INTERVENTIONAL CARDIOLOGY 04/18/24 documented as of this encounter
--- OUTSIDE RECORDS SUMMARY | 2024-10-17 10:29 | XMS_ITS ---
Author Organization Unknown Address [address] [place] [phone] Phone Care Team Providers Care Cash Register Servicer Name Role Phone TRENTON LINARES Attending Unavailable [...] w/Microscopy - Co llect Date/Time: 11/12/2023 12:30 [facility] ID: [id number] [place], [phone] LOINC: 80451-5 Test Value Unit Reference Range Code Code System Flag UR SOURCE CLEAN CATCH 20966-9 LOINC COLOR YELLOW YELLOW 5778-6 LOINC CLARITY CLEAR CLEAR 69506-5 LOINC SPEC GRAVITY 1.025 1.000-1.030 5811-5 LOINC PH 6.0 5.0 - 6.5 5803-2 LOINC LEUK EST NEGATIVE NEGATIVE 5799-2 LOINC NITRATE NEGATIVE NEGATIVE PROTEIN NEGATIVE NEGATIVE 5804-0 LOINC GLUCOSE NEGATIVE NEGATIVE 70077-6 LOINC KETONES NEGATIVE NEGATIVE 06103-1 LOINC UROBILINOGEN 1.0 NEGATIVE 5818-0 LOINC BILIRUBIN NEGATIVE NEGATIVE 82592-4 LOINC BLOOD NEGATIVE NEGATIVE 60122-5 LOINC WBC 0-2 0 - 2 58189-8 LOINC RBC 0-2 0 - 2 37643-7 LOINC EPITHELIAL MANY RARE-FEW 76089-7 LOINC A BACTERIA FEW NONE SEEN 62879-3 LOINC MUCUS NONE SEEN NONE SEEN 8247-9 LOINC YEAST NOT PRESENT NOT PRESENT 38124-6 LOINC CASTS NONE SEEN 71233-2 LOINC CRYSTALS NONE SEEN 41301-0 LOINC MICROALBUMIN - Collect Date/ Time: 11/12/2023 12:30 [facility] ID: [id number] [place], [place], [phone] LOINC: 95229-0 Test Value Unit Reference Range Code Code System Flag MICROALBUMIN 15.3 mg/L L=0.0 H=16.7 93991-6 LOINC UR CREATININE 229.00 mg/dL L=30.00 H=125 2161-8 LOINC H MA/CR 6.7 mg/gCR CBC W/O DIFF - Collect Date/ Time: 11/12/2023 07:42 [facility] ID: [id number] [place], [phone] LOINC: 76195-4 Test Value Unit Reference Range Code Code System Flag WBC 6.7 10^3uL L=4.8 H=10.8 RBC 4.94 10^6uL L=4.20 H=5.40 HEMOGLOBIN 12.1 g/dL L=12.0 H=16.0 718-7 LOINC HEMATOCRIT 39.7 VOL% L=37.0 H=47.0 4544-3 LOINC MCV 80.4 fL L=81.0 H=99.0 L MCH 24.5 pg L=27.0 H=32.0 L MCHC 30.5 g/dL L=32.0 H=36.0 L PLATELETS 249 10^3uL L=100 H=400 12002-7 LOINC RDW 18.4 % L=11.7 H=15.5 H IRON PANEL - Collect Date/Ti me: 11/12/2023 07:42 [facility] ID: [id number] [address] [place] [address], [phone] LOINC: Test Value Unit Reference Range Code Code System Flag IRON 52 ug/dL L=37 H=170 2498-4 LOINC TIBC 446 ug/dL L=265 H=497 2500-7 LOINC %SATURATION 12 % L=13 H=45 2708-6 LOINC L CPK - Collect Date/Time: 07:42 [facility] ID: [id number] [place], [place], [phone] LOINC: 2157-6 Test Value Unit Reference Range Code Code System Flag CPK 205 U/L L=30 H=170 2157-6 LOINC H T4 FREE - Collect Date/Time: 11/12/2023 07:42 [facility] ID: [id number] [place], [phone] LOINC: 3024-7 Test Value Unit Reference Range Code Code System Flag T4, FREE 0.82 ng/dL L=0.78 H=2.19 3024-7 LOINC FREE T3 - Collect Date/Time: 11/12/2023 07:42 [facility] ID: [id number] [address] [place] [address], [phone] LOINC: 3051-0 Test Value Unit Reference Range Code Code System Flag FREE T3 2.47 pg/mL L=2.77 H=5.27 3051-0 LOINC L PRO BNP - Collect Date/Time: 11/12/2023 07:42 [facility] ID: [id number] [address] [place] [address], [phone] LOINC: 20695-2 Test Value Unit Reference Range Code Code System Flag Pro BNP2 52 pg/mL L=0 X=2637 36908-0 LOINC HGB A1C -GLYCOHEMOGLOBIN - C ollect Date/Time: 11/12/2023 07:42 [facility] ID: [id number] [address] [place] [address], [phone] LOINC: 4548-4 Test Value Unit Reference Range Code Code System Flag HGBA1C 5.8 % 4548-4 LOINC TSH - Collect Date/Time: 07:42 [facility] ID: [id number] [address] [place] [address], [phone] LOINC: 38469-3 Test Value Unit Reference Range Code Code System Flag TSH. 2.770 uIU/L L=0.470 H=4.680 76152-6 LOINC LIPID PANEL - Collect Date/T isabelle: 11/12/2023 07:42 [facility] ID: [id number] [address] [place] [address], [phone] LOINC: 60975-8 Test Value Unit Reference Range Code Code System Flag FASTING NO CHOLESTEROL 156 mg/dL L=0 H=200 3-3 LOINC TRIGLYCERIDE 155 mg/dL L=0 H=150 2571-8 LOINC H HDL 31 mg/dL L=40 H=60 2084-9 LOINC L LDL 104 mg/dL 2088-1 LOINC VITAMIN B-12 - Collect Date/ Time: 11/12/2023 07:42 [facility] ID: [id number] [address] [place] [address], [phone] LOINC: 9 Test Value Unit Reference Range Code Code System Flag VITAMIN B12 311 pq/mL L=239 H=931 COMPREHENSIVE METABOLIC PANE L - Collect Date/Time: 11/12/2023 07:42 [facility] ID: [id number] [address] [place] [address], [phone] LOINC: 95060-0 Test Value Unit Reference Range Code Code System Flag FASTING NO BUN 22 mg/dL L=7 H=20 3094-0 LOINC H CREATININE 0.70 mg/dL L=0.52 H=1.04 2160-0 LOINC GLUCOSE 114 mg/dL L=74 H=106 2345-7 LOINC H SODIUM 142 mmol/L L=132 H=144 2951-2 LOINC POTASSIUM 3.9 mmol/L L=3.5 H=5.1 2823-3 LOINC CHLORIDE 105 mmol/L L=98 H=107 2075-0 LOINC CO2 28.0 mmol/L L=22.0 H=30.0 2028-9 LOINC ANION GAP 13 L=10 H=20 61143-6 LOINC OSMOLALITY 298 mOs/kG L=280 H=296 07955-7 LOINC H BUN/CREAT 31.4 3097-3 LOINC CALCIUM 9.3 mg/dL L=8.3 H=10.5 52219-5 LOINC AST 31 U/L L=15 H=46 1920-8 LOINC ALT 30 U/L L=9 H=72 1742-6 LOINC ALKALINE PHOS 110 U/L L=38 H=126 6768-6 LOINC TOTAL BILI 0.5 mg/dL L=0.2 H=1.3 1975-2 LOINC ALBUMIN 4.2 G/dL L=3.5 H=5.0 1751-7 LOINC TOTAL PROTEIN 7.2 g/L L=6.3 H=8.2 2885-2 LOINC A/G RATIO 1.4 27424-8 LOINC AGE 78 36665-8 LOINC eGFR NON-AFR 86 ml/min eGFR AFR AMER 104 ml/min Social History Type Status Start Date End Date Code Code Syst em Smoking History Never smoker (Never Smoked) 246157742 SNOMED CT Smoking History Former smoker 4015844 SNOMED CT Sex Female Medications Medication Start Date End Date Route Frequency Dose Code Code System Medication Instructions Home Meds Eliquis 2.5MG Oral Tablet 08/30/2017 Unknown ORAL EVERY 12 HOURS 5 MILLIGRAMS 7350735 RxNorm TAKE 5 MILLIGRAMS ORAL EVERY 12 HOURS Metoprolol Tartrate 25MG Oral Tablet 08/30/2017 Unknown ORAL EVERY 12 HOURS 25 MILLIGRAMS 488850 RxNorm TAKE 25 MILLIGRAMS ORAL EVERY 12 HOURS Acetaminophen- diphenhydrAMIN E HCl 500MG-25MG Oral Tablet 08/30/2017 Unknown ORAL NEEDED AT BEDTIME 1 TABLET 1927941 RxNorm TAKE 1 TABLET ORAL NEEDED AT BEDTIME Celecoxib 200MG Oral Capsule 08/30/2017 Unknown ORAL DAILY WITH MEAL 200 MILLIGRAMS 105448 RxNorm TAKE 200 MILLIGRAMS ORAL DAILY WITH MEAL Losartan Potassium-hydr oCHLOROthiazid e 100MG-12.5MG Oral Tablet 08/30/2017 Unknown ORAL ONCE A DAY 0.5 TABLET 841735 RxNorm TAKE 0.5 TABLET ORAL ONCE A DAY Pantoprazole Sodium 40MG Oral Tablet, Enteric Coated 08/30/2017 Unknown ORAL EVERY 12 HOURS 40 MILLIGRAMS 910826 RxNorm TAKE 40 MILLIGRAMS ORAL EVERY 12 HOURS Terazosin HCl 2MG Oral Capsule 08/30/2017 Unknown ORAL AT BEDTIME 2 MILLIGRAMS 236404 RxNorm TAKE 2 MILLIGRAMS ORAL AT BEDTIME VESIcare 10MG Oral Tablet 08/30/2017 Unknown ORAL ONCE A DAY 10 MILLIGRAMS 907094 RxNorm TAKE 10 MILLIGRAMS ORAL ONCE A [...] Status Code Code System A FIB active 11302714 SNOMED-CT Allergies and Adverse Reactions Allergy Substance Reaction Severity Start Date Concern Status Co de Code System No Known Drug Allergies Moderate Active 059853237 SNOMED-CT Plan of Treatment US Venous Right LE (18530) 08/09/2023 Pulmonary Function Test 10/07/2023 CT Chest/Lung WO Contrast (01015) 10/06 Pulmonary Function Test 10/07/2023 CT Chest/Lung WO Contrast (96536) 10/06 Encounters Encounter Diagnosis Start Date Code Code Sys tem 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
--- OUTSIDE RECORDS SUMMARY | 2024-10-17 10:29 | XMS_ITS | Clinical Summary ---
Author Organization [facility] Address [facility] [place] [address] Care Team Providers Care Ferryboat Operator Cable Name Role Phone Adonay Chase MD Primary Care Provider [phone] Madi Mccloud MD Unavailable Davide Montaño MD Unavailable Shelton Rivas MD Unavailable UnavailCristina Rust APRN, NP-C Unavailable Wade Trevizo MD Unavailable [phone] Moustapha Mccabe MD Unavailable Saad Handy MD Unavailable [phone] Allergies Active Allergy Reactions Criticality Noted Date [...] Post-operative state 07/06/2021 PFO (patent foramen ovale) ([facility]) 08/10/2018 Mixed hyperlipidemia 03/16/2018 Sinus node dysfunction ([facility]) 018 Chronic anticoagulation 09/29/2017 Paroxysmal atrial fibrillation ([facility]) 09/06/2017 Essential (primary) hypertension 09/06/2017 STEVEN (obstructive sleep apnea) 09/06/2017 Resolved Problems Problem Noted Date Diagnosed Date Resolved Date Preop cardiovascular exam 06/11/2021 Preoperative clearance 08/10/201804/11 Chest pain 09/06/2017 04/11/2020 Shortness of breath 09/06/2017 04/11/20 20 Essential hypertension, benign 04/11/2020 Atrial fibrillation ([facility]) 01/05/2018 Encounters Date Type Department Care Team Description 08/15/2024 Telephone [facility] [address] [place] [phone] Cristina Gonzales APRN, SENIOR DIRECTOR INSIGHT-C Information 08/14/2024 2:00 PM PRODUCTION DISPATCHER Office Visit [facility] [place] [address] [place] [phone] Cristina Gonzales, GABY, SENIOR DIRECTOR INSIGHT-C Consult (Preop eval for shoulder surgery) 08/14/2024 Travel 08/14/2024 Orders Only [facility] [place] [address] [place] [phone] Chapito Zavaleta MD 08/09/2024 Telephone [facility] [address] [place] [address] Cristina Gonzales APRN, SENIOR DIRECTOR INSIGHT-C Reschedule 07/31/2024 Telephone [facility] [address] [place] [phone] Cristina Gonzales APRN, SENIOR DIRECTOR INSIGHT-C Other from Last 3 Months Immunizations Name Administration Dates Next Due MODERNA COVID-19 (SOCIAL MEDIA STRATEGIST DELFINO MALKA), MRNA, LNP-S, PF, 50 MCG/ [...] Sex Assigned at Female 08/14/2024 1:38 PM PRODUCTION DISPATCHER Legal Sex Female 8:33 PM CDT Gender Identity Not on file Sexual Orientation Not on file Occupation Industry Job Start Date Job End Date Not on file Not on file Not on file Not on file Last Filed Vital Signs Vital Sign Reading Time Taken Comments Blood Pressure 134/76 08/14/2024 1:54 PM PRODUCTION DISPATCHER Pulse 63 08/14/2024 1:54 PM PRODUCTION DISPATCHER Temperature 36.4 C (97.5 F) 02/05/2022 12:19 PM CDT Respiratory Rate 18 08/14/2024 1:54 PM PRODUCTION DISPATCHER Oxygen Saturation 99% 08/14/2024 1:54 PM PRODUCTION DISPATCHER Inhaled Oxygen Concentration - - Weight 94.9 kg (209 lb 3.2 oz) 08/14/2024 1:54 P M PRODUCTION DISPATCHER Height 167.6 cm (5' 6 ) 08/14/2024 1:54 PM PRODUCTION DISPATCHER Body Mass Index 33.77 08/14/2024 1:54 PM PRODUCTION DISPATCHER Plan of Treatment Upcoming Encounters Date Type Department Care Team (Late st Contact Info) Description 08/22/2025 2:30 PM PRODUCTION DISPATCHER Office Visit [facility] [address] [place] [phone] Cristina Gonzales, TANK ERECTOR, SENIOR DIRECTOR INSIGHT-C [address] [facility] [address] [place] [phone] Health Maintenance Due Date Last Done Comments [...] upon discharge General No Dianelys Silva RN Medical Devices Implanted Type Area Cobbler Sole Device Identifier Shelf Expiration Date Model / Serial / Lot Graft Bone Bonus Triad Cancellous Cortical 1cc Allograft - [id number] Implanted:Qty: 1 on 07/06/2021 by Ramses Guerra MD at [facility] Bone N/A: Spine Lumbar [employer] 12/21/2025 [id number] / / Cv Synergy 4.0mm X 24mm Julian Mid Rca-02/05/2022 Implanted:02/05 by Chapito Zavaleta MD (Quantity not on file) Stent Coronary RCA [employer] ABDIFATAH 09/28/2023 [id number] / / [id number] F3d Straight, Cage Implanted:Qty: 1 on 07/06/2021 by Ramses Guerra MD at [facility] N/A: Spine Lumbar NEW AGE MEDICAL [id number] 06/04/2025 [id number] / / [id number] F3d Straight, Cage Implanted:Qty: 1 on 07/06/2021 by Ramses Guerra MD at [facility] N/A: Spine Lumbar NEW AGE MEDICAL [id number] 09/30/2025 [id number] / / [id number] Mis Set Screw Implanted:Qty: 6 on 07/06/2021 by Ramses Guerra MD at [facility] N/A: Spine Lumbar NEW AGE MEDICAL [id number] / / Mis Cortical Poly Screw 6.5 X 45mm Implanted:Qty: 6 on 07/06/2021 by Ramses Guerra MD at [facility] N/A: Spine Lumbar NEW AGE MEDICAL [id number] / / Mis Abimael 55mm Implanted:Qty: 2 on 07/06/2021 by Ramses Guerra MD at [facility] N/A: Spine Lumbar NEW AGE [facility] [id number] / / Explanted Type Area Cobbler Sole Device Identifier Shelf Expiration Date Model / Serial / Lot 1.4mm K-Wire Explanted:Qty: 1 on 07/06/2021 by Ramses Guerra MD at [facility] N/A: Spine Lumbar NEW AGE [facility] NAM-GUIDEW [id number] / / Procedures Procedure Name Priority Date/Time Associated Diagnosis Comments ELECTROCARDIOGRAM (NON MIDMARK ACQUIRED) Routine 08/14/2024 1:56 PM PRODUCTION DISPATCHER Preoperative cardiovascular examination Coronary artery disease involving [place] coronary artery of [place] heart without angina pectoris Essential (primary) hypertension Mixed hyperlipidemia from Last 3 Months Results * ELECTROCARDIOGRAM (08/14/2024 1:56 PM PRODUCTION DISPATCHER) 08/14/2024 1:56 PM PRODUCTION DISPATCHER Narrative [facility] - 08/15/2024 11:37 AM PRODUCTION DISPATCHER [facility] [place] [address] [place] [address] Test Date: 2024-08-14 Pat Name: FRIEDA GANDARA Department: 105 Room: Gender: Female Plant Controls Specialist: : 1945 Requested By: CHAPITO ZAVALETA Order Number: [id number] Reading MD: Chapito Zavaleta Measurements Intervals [place] Rate: 71 P: 79 AL: 159 QRS: 84 QRSD: 88 T: 60 QT: 398 QTc: 433 Interpretive Statements SINUS RHYTHM UCTION DISPATCHER Procedure Note Chapito Zavaleta MD - 08/15/2024 [facility] [place] [address] [place] [address] Test Date: 2024-08-14 Pat Name: FRIEDA GANDARA Department: 105 Room: Gender: Female Plant Controls Specialist: : 1945 Requested By: CHAPITO ZAVALETA Order Number: [id number] Reading MD: Chapito Zavaleta Measurements Intervals [place] Rate: 71 P: 79 AL: 159 QRS: 84 QRSD: 88 T: 60 QT: 398 QTc: 433 Interpretive Statements SINUS RHYTHM UCTION DISPATCHER us Chapito Zavaleta MD PROCEDURES-ORDERABLE NO CHARG E Final Result [facility] from Last 3 Months Insurance MEDICARE [facility] MEDICARE Advance Directives * Full Code (Latest Code Status on File) Date Activated Date Inactivated Comments 02/05/2022 3:36 PM 02/05/2022 8:42 PM * Full Code Date Activated Date Inactivated Comments 07/06/2021 12:22 PM 07/08/2021 4:55 PM Care Teams Ferryboat Operator Cable Relationship Specialty Start Date End Date Adonay Chase MD [address] [place] [phone] PCP - General INTERNAL MEDICINE 03/29/16 Madi Mcclodu MD [address] [place] [phone] EP Spring Coiler Hand CLINICAL CARDIAC ELECTROPHYSIOLOGY 09/29/17 Davide Montaño MD [address] [place] [address] [address] [place] [address] Pain Medicine 10/14/20 Shelton Rivas MD [address] [place] [address] [address] [place] [address] Consulting Physician CARDIOVASCULAR DISEASE 11/11/21 Cristina Gonzales APRN, SENIOR DIRECTOR INSIGHT-C [address] [place] [address] [address] [place] [phone] NURSE PRACTITIONER 11/11/21 Wade Trevizo MD [address] [place] [address] ORTHOPAEDIC SURGERY 04/15/23 Moustapha Mccabe MD [address] [place] [address] Consulting Physician INTERNAL MEDICINE 08/05/23 Saad Handy MD [address] [facility] [address] [place] [address] INTERVENTIONAL CARDIOLOGY 04/18/24
--- OUTSIDE RECORDS SUMMARY | 2024-10-17 10:30 | XMS_ITS ---
Author Organization Unknown Address [address] [place] [phone] Phone Care Team Providers Care Roguer Name Role Phone SAVANA ALVARADO PA-C Attending [...] Date/T isabelle: 08/04/2023 13:13 [facility] ID: [id number] [address] [place], [place], [phone] LOINC: 36814-2 Test Value Unit Reference Range Code Code System Flag WBC 9.7 10^3uL L=4.8 H=10.8 RBC 3.87 10^6uL L=4.20 H=5.40 L HEMOGLOBIN 10.3 g/dL L=12.0 H=16.0 718-7 LOINC L HEMATOCRIT 34.2 VOL% L=37.0 H=47.0 4544-3 LOINC L MCV 88.4 fL L=81.0 H=99.0 MCH 26.6 pg L=27.0 H=32.0 L MCHC 30.1 g/dL L=32.0 H=36.0 L PLATELETS 247 10^3uL L=100 H=400 14776-5 LOINC RDW 14.2 % L=11.7 H=15.5 %GRAN 71.9 % L=40.0 H=70.0 17328-2 LOINC H %LYMPH 16.0 % L=20.0 H=45.0 736-9 LOINC L %MONO 7.7 % L=2.0 H=10.0 82283-7 LOINC %EOS 3.7 % L=0.0 H=6.0 713-8 LOINC %BASO 0.5 % L=0.0 H=3.0 706-2 LOINC #NEUT 7.0 10^3uL L=1.9 H=7.6 69661-6 LOINC #LYMPH 1.6 10^3uL L=0.9 H=4.9 69581-4 LOINC #MONO 0.8 10^3uL L=0.1 H=0.9 08105-1 LOINC #EOS 0.4 10^3uL L=0.0 H=0.6 712-0 LOINC #BASO 0.05 10^3uL L=0.00 H=0.10 52368-4 LOINC #IM GRANS 0.0 10^3uL L=0.0 H=7.0 63473-2 LOINC %IM GRANS 0.2 % L=0.0 H=5.0 80392-4 LOINC %NRB 0.0 L=0.0 H=0.2 13199-9 LOINC #NRB 0.000 L=0.000 H=0.012 78251-2 LOINC MANUAL DIFF NOT INDICATED RBC MORPH NOT INDICATED CRP NON SPECIFIC - Collect D ate/Time: 08/04/2023 13:13 [facility] ID: [id number] [address] [place] [address], [phone] LOINC: 1987-11 Test Value Unit Reference Range Code Code System Flag CRP-NON SPECIFIC < 5.0 mg/L L=0.0 H=10.0 1987-11 LOINC SED RATE - Collect Date/Time : 08/04/2023 13:13 [facility] ID: [id number] [address] [place] [address], [id number] LOINC: Test Value Unit Reference Range Code Code System Flag SED RATE 28 mm/hr L=0 H=20 H US VENOUS RIGHT LE - Complet ed: 08/04/2023 13:21 LOINC: 10237-4 EXAM DESCRIPTION: US VENOUS RIGHT LE REASON [...] Ronan Galicia M.D. KR: KR Report ID: [id number] Reading Location: [place] [address] Social History Type Status Start Date End Date Code Code Syst em Smoking History Never smoker (Never Smoked) 078088682 SNOMED CT Smoking History Former smoker 8057752 SNOMED CT Sex Female Medications Medication Start Date End Date Route Frequency Dose Code Code System Medication Instructions Home Meds Eliquis 2.5MG Oral Tablet 08/30/2017 Unknown ORAL EVERY 12 HOURS 5 MILLIGRAMS 2504607 RxNorm TAKE 5 MILLIGRAMS ORAL EVERY 12 HOURS Metoprolol Tartrate 25MG Oral Tablet 08/30/2017 Unknown ORAL EVERY 12 HOURS 25 MILLIGRAMS 247970 RxNorm TAKE 25 MILLIGRAMS ORAL EVERY 12 HOURS Acetaminophen- diphenhydrAMIN E HCl 500MG-25MG Oral Tablet 08/30/2017 Unknown ORAL NEEDED AT BEDTIME 1 TABLET 6013877 RxNorm TAKE 1 TABLET ORAL NEEDED AT BEDTIME Celecoxib 200MG Oral Capsule 08/30/2017 Unknown ORAL DAILY WITH MEAL 200 MILLIGRAMS 572541 RxNorm TAKE 200 MILLIGRAMS ORAL DAILY WITH MEAL Losartan Potassium-hydr oCHLOROthiazid e 100MG-12.5MG Oral Tablet 08/30/2017 Unknown ORAL ONCE A DAY 0.5 TABLET 112079 RxNorm TAKE 0.5 TABLET ORAL ONCE A DAY Pantoprazole Sodium 40MG Oral Tablet, Enteric Coated 08/30/2017 Unknown ORAL EVERY 12 HOURS 40 MILLIGRAMS 307212 RxNorm TAKE 40 MILLIGRAMS ORAL EVERY 12 HOURS Terazosin HCl 2MG Oral Capsule 08/30/2017 Unknown ORAL AT BEDTIME 2 MILLIGRAMS 577516 RxNorm TAKE 2 MILLIGRAMS ORAL AT BEDTIME VESIcare 10MG Oral Tablet 08/30/2017 Unknown ORAL ONCE A DAY 10 MILLIGRAMS 637152 RxNorm TAKE 10 MILLIGRAMS ORAL ONCE A [...] Status Code Code System A FIB active 13972986 SNOMED-CT Allergies and Adverse Reactions Allergy Substance Reaction Severity Start Date Concern Status Co de Code System No Known Drug Allergies Moderate Active 559953186 SNOMED-CT Plan of Treatment US Venous Right LE (19818) 08/09/2023 Pulmonary Function Test 10/07/2023 CT Chest/Lung WO Contrast (78130) 10/06 Pulmonary Function Test 10/07/2023 CT Chest/Lung WO Contrast (09246) 10/06 Encounters Encounter Diagnosis Start Date Code Code Sys tem Localized edema 08/04/2023 SNOMED-CT Personal Care Team Section Performer Name Performer Role Active Date Inactive Da te Imaging Narrative Notes
--- OUTSIDE RECORDS SUMMARY | 2024-10-17 10:30 | XMS_ITS ---
Author Organization Unknown Address [address] [place] [phone] Phone Care Team Providers Care Cosmetic Assembler Name Role Phone OSMAN Burch Attending Unavailable [...] Daniel Diaz M.D. MF: MAGDA Report ID: [id number] Reading Location: [place] [address] Social History Type Status Start Date End Date Code Code Syst em Smoking History Never smoker (Never Smoked) 366507830 SNOMED CT Smoking History Former smoker 7426339 SNOMED CT Sex Female Medications Medication Start Date End Date Route Frequency Dose Code Code System Medication Instructions Home Meds Eliquis 2.5MG Oral Tablet 08/30/2017 Unknown ORAL EVERY 12 HOURS 5 MILLIGRAMS 4355166 RxNorm TAKE 5 MILLIGRAMS ORAL EVERY 12 HOURS Metoprolol Tartrate 25MG Oral Tablet 08/30/2017 Unknown ORAL EVERY 12 HOURS 25 MILLIGRAMS 554678 RxNorm TAKE 25 MILLIGRAMS ORAL EVERY 12 HOURS Acetaminophen- diphenhydrAMIN E HCl 500MG-25MG Oral Tablet 08/30/2017 Unknown ORAL NEEDED AT BEDTIME 1 TABLET 5250566 RxNorm TAKE 1 TABLET ORAL NEEDED AT BEDTIME Celecoxib 200MG Oral Capsule 08/30/2017 Unknown ORAL DAILY WITH MEAL 200 MILLIGRAMS 084577 RxNorm TAKE 200 MILLIGRAMS ORAL DAILY WITH MEAL Losartan Potassium-hydr oCHLOROthiazid e 100MG-12.5MG Oral Tablet 08/30/2017 Unknown ORAL ONCE A DAY 0.5 TABLET 569744 RxNorm TAKE 0.5 TABLET ORAL ONCE A DAY Pantoprazole Sodium 40MG Oral Tablet, Enteric Coated 08/30/2017 Unknown ORAL EVERY 12 HOURS 40 MILLIGRAMS 915890 RxNorm TAKE 40 MILLIGRAMS ORAL EVERY 12 HOURS Terazosin HCl 2MG Oral Capsule 08/30/2017 Unknown ORAL AT BEDTIME 2 MILLIGRAMS 902330 RxNorm TAKE 2 MILLIGRAMS ORAL AT BEDTIME VESIcare 10MG Oral Tablet 08/30/2017 Unknown ORAL ONCE A DAY 10 MILLIGRAMS 372119 RxNorm TAKE 10 MILLIGRAMS ORAL ONCE A [...] Status Code Code System A FIB active 71996572 SNOMED-CT Allergies and Adverse Reactions Allergy Substance Reaction Severity Start Date Concern Status Co de Code System No Known Drug Allergies Moderate Active 466497547 SNOMED-CT Plan of Treatment US Venous Right LE (18009) 08/09/2023 Pulmonary Function Test 10/07/2023 CT Chest/Lung WO Contrast (06399) 10/06 Pulmonary Function Test 10/07/2023 CT Chest/Lung WO Contrast (09468) 10/06 Encounters Encounter Diagnosis Start Date Code Code Sys tem Hip joint prosthesis present 11/25/2023 242725138 SNOMED-CT Personal Care Team Section Performer Name Performer Role Active Date Inactive Da te Imaging Narrative Notes
--- NOTE | 2024-10-17 11:00 | ECG_ITS ---
Test Date: 2024-10-17 11:14:01 Measurements Intervals [place] Rate: 56 P: 46 MS: 153 QRS: 66 QRSD: 96 T: 23 QT: 437 QTc: 424 Interpretive Statements SINUS BRADYCARDIA POSSIBLE ANTERIOR MYOCARDIAL INFARCTION [30 ms Q WAVE IN V3/V4, OR R < 0.2 mV IN V4], PROBABLY OLD ABNORMAL ECG Electronically Signed On 10-17-2024 12:55:03 CDT by Fredi Arita M.D.
[2024-10-17 12:02] LABS: Basophils Percent Auto 0.4 % (0.2-1.2); Eosinophils Absolute Auto 0.3 K/mm3 (0-0.3); Eosinophils Percent Auto 2.7 % (0-4.4); Hematocrit 41.9 % (37.0-47.0); Hemoglobin 13.2 g/dL (12.0-15.0); Immature Granulocyte Absolute 0.04 K/mm3 (0.00-0.031); Immature Granulocyte Percent A 0.4 % (0-0.5); Lymphocytes Absolute Auto 1.98 K/mm3 (0.9-3.2); Lymphocytes Percent Auto 18.3 % (18.3-44.2); Mean Corpuscular HGB Conc 31.5 g/dl (32-36); Mean Corpuscular Hemoglobin 29.7 pg (26-34); Mean Corpuscular Volume 94.4 fl (80-100); Mean Platelet Volume 10.8 fl (7.4-10.4); Monocytes Absolute Auto 0.8 K/mm3 (0.1-0.6); Monocytes Percent Auto 7.4 % (2.6-8.5); Neutrophils Absolute Auto 7.7 K/mm3 (1.3-6.7); Neutrophils Percent Auto 70.8 % (45.5-73.1); Platelet Count Result 232 k/mm3 (150-375); Red Blood Count 4.44 M/mm3 (4.2-5.4); White Blood Count 10.8 K/mm3 (4.5-10.0)
[2024-10-17 12:21] LABS: Anion Gap 10 mmol/L (4-12); Blood Urea Nitrogen 25 mg/dL (7-17); Calcium 9.4 mg/dL (8.4-10.2); Carbon Dioxide 28 mmol/L (22-30); Chloride 102 mmol/L (98-107); Estimated Glomerular Filt Rate > 60; Glucose 103 mg/dL (65-110); Sodium 140 mmol/L (137-145)
[2024-10-17 13:12] LABS: MRSA (PCR) NOT DETECTED (NOT DETECTE)
== END 2024-10-17 09:26 | disposition home or self-care (01) ==
LOC: ANHSURGERY 09:27
PROVIDERS: Anesthesiology; PCP Internal Medicine; Visit Provider Orthopaedic Surgery
DX: M19.011 Primary osteoarthritis, right shoulder (principal); I10 Essential (primary) hypertension; Z01.818 Encounter for other preprocedural examination
CPT/HCPCS: 36415; 80048; 85025; 87641; 93005

== ENCOUNTER 2024-11-15 01:03 | Day surgery (SDC) | payer MEDICARE, SELFPAY ==
--- NOTE | 2024-10-17 09:42 | PC.NURSE ---
Report to the Outpatient Waiting Room, entrance under the green pavilion located off [facility], at time _6 AM on date _11/15/24 . Planned Procedure Time: ___7:30 AM .? Time changes happen often and if your time is changed the preop area will call you the afternoon before. - You and your visitor will be asked to self-screen and do not enter if you have any COVID symptoms. Please call surgeon if you need to reschedule. - A mask is optional within the hospital at this time. Patients may have clear liquids (water, carbonated beverages, clear teas, apple juice) until 3 hours prior to surgery ( 4:30 AM) with a maximum of 20 ounces. - No food from midnight until time of surgery and no smoking, or chewing tobacco (or any form of nicotine). No chewing gum, candy or mints. Take only the following medications with a SIP of water on the morning of surgery: ___DILTIAZEM,LEVOTHYROXINE DO NOT STOP ANY OF YOUR OTHER PRESCRIPTION MEDICATIONS PRIOR TO SURGERY EXCEPT THE FOLLOWING Hold all vitamins and supplements for 3 days per anesthesiologist. OK TO CONTINUE CELECOXIB PER Medications to discontinue per physician __HOLD PRADAXA 2-3 DAYS PRE OP PER CARDIOLOGIST_ .CONTINUE LOW DOSE ASPIRIN PER GLOVE PARTS CUTTER AND DR BREWER Date to take last dose Please no make-up, nail french, hairspray, perfume, deodorant, or body powder the day of surgery.? No jewelry (including any body piercings) or valuables the day of surgery, leave them at home.? Please take a shower or bath the night before, or the morning of, surgery with an antibacterial soap.? Wear comfortable, loose fitting clothing.? Children are encouraged to wear pajamas. - Jewelry must be removed prior to entering the operating room.? Rings and piercings that are not removed may be cut off. - The hospital will not accept responsibility for valuables.? - Please leave all valuables, including medications, at home the day of surgery. If you are going home after surgery, a licensed oil truck driver must drive you home.? - NO public transportation without another adult if you receive anesthesia. - We recommend that an adult stay with you for 24 hours following discharge. - We also recommend that you do not drive, make important decision, drink alcoholic beverages, or take any drugs that were not prescribed by your health care provider for at least 24 hours after your discharge time. Follow any additional instructions given to you from your surgeon. VERBAL AND WRITTEN instructions given to __PATIENT and asked if any additional questions and then verbalized understanding. Patient advised to call surgeon office or pre surgery nurse liaison [phone] if any additional questions.
[2024-10-17 09:51] VITALS: BMI 35.3
[2024-10-17 11:01] VITALS: BP 159/66; PULSE 57; RESP 18; TEMP 36.7; O2SAT 97
[2024-11-15] VITALS (11 sets, daily range): BP systolic 118–169; BP diastolic 43–73; PULSE 61–80; RESP 12–18; TEMP 36–37.1; O2SAT 94–100
--- NOTE | ~2024-11-15 | XR_ITS ---
EXAMINATION: XR shoulder RT min 2V DATE: 11/15/2024 10:25 INDICATION: Postoperative evaluation TECHNIQUE: 2 views of the right shoulder were performed FINDINGS: There is a right total shoulder arthroplasty in expected position. Subcutaneous gas with soft tissue swelling are consistent with recent surgery. IMPRESSION: Expected perioperative appearance of a reverse right shoulder, as detailed above. Reviewed, dictated and finalized at location A. IMPRESSION: Expected perioperative appearance of a reverse right shoulder, as d etailed above.
--- OUTSIDE RECORDS SUMMARY | 2024-11-15 01:09 | XMS_ITS ---
Author Organization Unknown Address [address] [place] [phone] Phone Care Team Providers Care Community Life Director Name Role Phone TRENTON LINARES Attending Unavailable Immunization Immunization Date Status Additional Notes Code Code System pneumococcal polysaccharide PPV23 04/23/2014 Completed 33 CVX Tdap 01/12/2017 Completed 115 CVX zoster live 12/13/2012 Completed 121 CVX Pneumococcal conjugate PCV 13 01/21/2016 Completed 133 CVX Influenza, high-dose, trivalent, PF 07/14/2024 Completed 135 CVX Influenza, split virus, trivalent, PF 04/23/2014 Completed 140 CVX Influenza, split virus, trivalent, PF 05/07/2022 Completed 140 CVX Influenza, split virus, quadrivalent, PF 06/01/2016 Completed 150 CVX Influenza, split virus, quadrivalent, PF 06/08/2017 Completed 150 CVX Influenza, split virus, quadrivalent, PF 05/12/2018 Completed 150 CVX Influenza, split virus, quadrivalent, PF 04/01/2022 Completed 150 CVX Influenza, split virus, quadrivalent, PF 05/23/2023 Completed 150 CVX Influenza, recombinant, quadrivalent, PF [...] PANEL - Collect Date/T isabelle: 01/04/2024 07:33 [facility] ID: [id number] [place], [place], [id number] LOINC: 23897-5 Test Value Unit Reference Range Code Code System Flag FASTING YES CHOLESTEROL 122 mg/dL L=0 H=200 3-3 LOINC TRIGLYCERIDE 118 mg/dL L=0 H=150 1-8 LOINC HDL 34 mg/dL L=40 H=60 2084-9 LOINC L LDL 72 mg/dL 2088-1 LOINC SGOT (AST) - Collect Date/Ti me: 01/04/2024 07:33 [facility] ID: [id number] [place] [address], [phone] LOINC: 1920-8 Test Value Unit Reference Range Code Code System Flag AST 29 U/L L=15 H=46 1920-8 LOINC SGPT (ALT) - Collect Date/Ti me: 01/04/2024 07:33 [facility] ID: [id number] [place] [address], [phone] LOINC: 1742-6 Test Value Unit Reference Range Code Code System Flag ALT 26 U/L L=9 H=72 1742-6 LOINC CPK - Collect Date/Time: 11/2023 07:33 [facility] ID: [id number] [place] [address], [id number] LOINC: 2157-6 Test Value Unit Reference Range Code Code System Flag CPK 189 U/L L=30 H=170 2157-6 LOINC H Social History Type Status Start Date End Date Code Code Syst em Smoking History Never smoker (Never Smoked) 925886393 SNOMED CT Smoking History Former smoker 2311026 SNOMED CT Sex Female Medications Medication Start Date End Date Route Frequency Dose Code Code System Medication Instructions Home Meds Eliquis 2.5MG Oral Tablet 08/30/2017 Unknown ORAL EVERY 12 HOURS 5 MILLIGRAMS 2258870 RxNorm TAKE 5 MILLIGRAMS ORAL EVERY 12 HOURS Metoprolol Tartrate 25MG Oral Tablet 08/30/2017 Unknown ORAL EVERY 12 HOURS 25 MILLIGRAMS 939257 RxNorm TAKE 25 MILLIGRAMS ORAL EVERY 12 HOURS Acetaminophen- diphenhydrAMIN E HCl 500MG-25MG Oral Tablet 08/30/2017 Unknown ORAL NEEDED AT BEDTIME 1 TABLET 8321269 RxNorm TAKE 1 TABLET ORAL NEEDED AT BEDTIME Celecoxib 200MG Oral Capsule 08/30/2017 Unknown ORAL DAILY WITH MEAL 200 MILLIGRAMS 380089 RxNorm TAKE 200 MILLIGRAMS ORAL DAILY WITH MEAL Losartan Potassium-hydr oCHLOROthiazid e 100MG-12.5MG Oral Tablet 08/30/2017 Unknown ORAL ONCE A DAY 0.5 TABLET 716858 RxNorm TAKE 0.5 TABLET ORAL ONCE A DAY Pantoprazole Sodium 40MG Oral Tablet, Enteric Coated 08/30/2017 Unknown ORAL EVERY 12 HOURS 40 MILLIGRAMS 340647 RxNorm TAKE 40 MILLIGRAMS ORAL EVERY 12 HOURS Terazosin HCl 2MG Oral Capsule 08/30/2017 Unknown ORAL AT BEDTIME 2 MILLIGRAMS 289416 RxNorm TAKE 2 MILLIGRAMS ORAL AT BEDTIME VESIcare 10MG Oral Tablet 08/30/2017 Unknown ORAL ONCE A DAY 10 MILLIGRAMS 378531 RxNorm TAKE 10 MILLIGRAMS ORAL ONCE A [...] Status Code Code System A FIB active 30642183 SNOMED-CT Allergies and Adverse Reactions Allergy Substance Reaction Severity Start Date Concern Status Co de Code System No Known Drug Allergies Moderate Active 859911847 SNOMED-CT Plan of Treatment US Venous Right LE (75210) 08/09/2023 Pulmonary Function Test 10/07/2023 CT Chest/Lung WO Contrast (96768) 10/06 Pulmonary Function Test 10/07/2023 CT Chest/Lung WO Contrast (41645) 10/06 Encounters Encounter Diagnosis Start Date Code Code Sys tem Mixed hyperlipidemia 01/04/2024 SNOMED- CT Personal Care Team Section Performer Name Performer Role Active Date Inactive Da te
--- OUTSIDE RECORDS SUMMARY | 2024-11-15 01:09 | XMS_ITS ---
Author Organization Unknown Address [address] [place] [phone] Phone Care Team Providers Care Tso Name Role Phone TRENTON LINARES Attending Unavailable [...] Recent guidelines by the Fleischner Society (Radiology 131373,2017) divides patient into low vs. high risk [...] immunosuppression, or patients with known primary cancer. http://pubs.rsna.org/doi/pdf/10.1148/radiol.6452353474 THIS IS AN ELECTRONICALLY VERIFIED FINAL REPORT 10/10/2023 8:00 AM - Electronically signed by Shelton Villarreal M.D. RB: DESIREE Report ID: [id number] Reading Location: [place] [address] Social History Type Status Start Date End Date Code Code Syst em Smoking History Never smoker (Never Smoked) 288372478 SNOMED CT Smoking History Former smoker 5769457 SNOMED CT Sex Female Medications Medication Start Date End Date Route Frequency Dose Code Code System Medication Instructions Home Meds Eliquis 2.5MG Oral Tablet 08/30/2017 Unknown ORAL EVERY 12 HOURS 5 MILLIGRAMS 0660850 RxNorm TAKE 5 MILLIGRAMS ORAL EVERY 12 HOURS Metoprolol Tartrate 25MG Oral Tablet 08/30/2017 Unknown ORAL EVERY 12 HOURS 25 MILLIGRAMS 212634 RxNorm TAKE 25 MILLIGRAMS ORAL EVERY 12 HOURS Acetaminophen- diphenhydrAMIN E HCl 500MG-25MG Oral Tablet 08/30/2017 Unknown ORAL NEEDED AT BEDTIME 1 TABLET 1132013 RxNorm TAKE 1 TABLET ORAL NEEDED AT BEDTIME Celecoxib 200MG Oral Capsule 08/30/2017 Unknown ORAL DAILY WITH MEAL 200 MILLIGRAMS 066345 RxNorm TAKE 200 MILLIGRAMS ORAL DAILY WITH MEAL Losartan Potassium-hydr oCHLOROthiazid e 100MG-12.5MG Oral Tablet 08/30/2017 Unknown ORAL ONCE A DAY 0.5 TABLET 304264 RxNorm TAKE 0.5 TABLET ORAL ONCE A DAY Pantoprazole Sodium 40MG Oral Tablet, Enteric Coated 08/30/2017 Unknown ORAL EVERY 12 HOURS 40 MILLIGRAMS 273435 RxNorm TAKE 40 MILLIGRAMS ORAL EVERY 12 HOURS Terazosin HCl 2MG Oral Capsule 08/30/2017 Unknown ORAL AT BEDTIME 2 MILLIGRAMS 038756 RxNorm TAKE 2 MILLIGRAMS ORAL AT BEDTIME VESIcare 10MG Oral Tablet 08/30/2017 Unknown ORAL ONCE A DAY 10 MILLIGRAMS 202687 RxNorm TAKE 10 MILLIGRAMS ORAL ONCE A [...] Status Code Code System A FIB active 72596389 SNOMED-CT Allergies and Adverse Reactions Allergy Substance Reaction Severity Start Date Concern Status Co de Code System No Known Drug Allergies Moderate Active 566755668 SNOMED-CT Plan of Treatment US Venous Right LE (71366) 08/09/2023 Pulmonary Function Test 10/07/2023 CT Chest/Lung WO Contrast (72235) 10/06 Pulmonary Function Test 10/07/2023 CT Chest/Lung WO Contrast (31574) 10/06 Encounters Encounter Diagnosis Start Date Code Code Sys tem Shortness of breath 10/07/2023 SNOMED-C T Personal Care Team Section Performer Name Performer Role Active Date Inactive Da te Imaging Narrative Notes
--- OUTSIDE RECORDS SUMMARY | 2024-11-15 01:09 | XMS_ITS ---
Author Organization Unknown Address [address] [place] [address] [phone] Phone Care Team Providers Care Molder Shoulder Pad Name Role Phone RADHA VILCHIS CAFE TEAM MEMBER Attending Unavailable TRENTON LINARES Primary Unavailable Immunization [...] em Smoking History Never smoker (Never Smoked) [id number] SNOMED CT Smoking History Former smoker [id number] SNOMED CT Sex Female Medications Medication Start Date End Date Route Frequency Dose Code Code System Medication Instructions Home Meds Eliquis 2.5MG Oral Tablet 08/30/2017 Unknown ORAL EVERY 12 HOURS 5 MILLIGRAMS 3888505 RxNorm TAKE 5 MILLIGRAMS ORAL EVERY 12 HOURS Metoprolol Tartrate 25MG Oral Tablet 08/30/2017 Unknown ORAL EVERY 12 HOURS 25 MILLIGRAMS 964931 RxNorm TAKE 25 MILLIGRAMS ORAL EVERY 12 HOURS Acetaminophen- diphenhydrAMIN E HCl 500MG-25MG Oral Tablet 08/30/2017 Unknown ORAL NEEDED AT BEDTIME 1 TABLET 1223610 RxNorm TAKE 1 TABLET ORAL NEEDED AT BEDTIME Celecoxib 200MG Oral Capsule 08/30/2017 Unknown ORAL DAILY WITH MEAL 200 MILLIGRAMS 082189 RxNorm TAKE 200 MILLIGRAMS ORAL DAILY WITH MEAL Losartan Potassium-hydr oCHLOROthiazid e 100MG-12.5MG Oral Tablet 08/30/2017 Unknown ORAL ONCE A DAY 0.5 TABLET 210809 RxNorm TAKE 0.5 TABLET ORAL ONCE A DAY Pantoprazole Sodium 40MG Oral Tablet, Enteric Coated 08/30/2017 Unknown ORAL EVERY 12 HOURS 40 MILLIGRAMS 573427 RxNorm TAKE 40 MILLIGRAMS ORAL EVERY 12 HOURS Terazosin HCl 2MG Oral Capsule 08/30/2017 Unknown ORAL AT BEDTIME 2 MILLIGRAMS 132992 RxNorm TAKE 2 MILLIGRAMS ORAL AT BEDTIME VESIcare 10MG Oral Tablet 08/30/2017 Unknown ORAL ONCE A DAY 10 MILLIGRAMS 447815 RxNorm TAKE 10 MILLIGRAMS ORAL ONCE A [...] Status Code Code System A FIB active 23458996 SNOMED-CT Allergies and Adverse Reactions Allergy Substance Reaction Severity Start Date Concern Status Co de Code System No Known Drug Allergies Moderate Active 906674962 SNOMED-CT Plan of Treatment US Venous Right LE (07195) 08/09/2023 Pulmonary Function Test 10/07/2023 CT Chest/Lung WO Contrast (12931) 10/06 Pulmonary Function Test 10/07/2023 CT Chest/Lung WO Contrast (99361) 10/06 Encounters Encounter Diagnosis Start Date Code Code Sys tem Cervical radiculopathy 03/20/2024 83790061 SNOME D-CT Personal Care Team Section Performer Name Performer Role Active Date Inactive Da te
--- OUTSIDE RECORDS SUMMARY | 2024-11-15 01:09 | XMS_ITS ---
Author Organization Unknown Address [address] [place] [address] [phone] Phone Care Team Providers Care Mechanical Lead Name Role Phone RADHA VILCHIS TABLEAU REPORT DEVELOPER Attending Unavailable TRENTON LINARES Primary Unavailable Immunization [...] em Smoking History Never smoker (Never Smoked) [id number] SNOMED CT Smoking History Former smoker 8650180 SNOMED CT Sex Female Medications Medication Start Date End Date Route Frequency Dose Code Code System Medication Instructions Home Meds Eliquis 2.5MG Oral Tablet 08/30/2017 Unknown ORAL EVERY 12 HOURS 5 MILLIGRAMS 9759410 RxNorm TAKE 5 MILLIGRAMS ORAL EVERY 12 HOURS Metoprolol Tartrate 25MG Oral Tablet 08/30/2017 Unknown ORAL EVERY 12 HOURS 25 MILLIGRAMS 163686 RxNorm TAKE 25 MILLIGRAMS ORAL EVERY 12 HOURS Acetaminophen- diphenhydrAMIN E HCl 500MG-25MG Oral Tablet 08/30/2017 Unknown ORAL NEEDED AT BEDTIME 1 TABLET 6904115 RxNorm TAKE 1 TABLET ORAL NEEDED AT BEDTIME Celecoxib 200MG Oral Capsule 08/30/2017 Unknown ORAL DAILY WITH MEAL 200 MILLIGRAMS 965298 RxNorm TAKE 200 MILLIGRAMS ORAL DAILY WITH MEAL Losartan Potassium-hydr oCHLOROthiazid e 100MG-12.5MG Oral Tablet 08/30/2017 Unknown ORAL ONCE A DAY 0.5 TABLET 622013 RxNorm TAKE 0.5 TABLET ORAL ONCE A DAY Pantoprazole Sodium 40MG Oral Tablet, Enteric Coated 08/30/2017 Unknown ORAL EVERY 12 HOURS 40 MILLIGRAMS 792095 RxNorm TAKE 40 MILLIGRAMS ORAL EVERY 12 HOURS Terazosin HCl 2MG Oral Capsule 08/30/2017 Unknown ORAL AT BEDTIME 2 MILLIGRAMS 802484 RxNorm TAKE 2 MILLIGRAMS ORAL AT BEDTIME VESIcare 10MG Oral Tablet 08/30/2017 Unknown ORAL ONCE A DAY 10 MILLIGRAMS 765423 RxNorm TAKE 10 MILLIGRAMS ORAL ONCE A [...] Status Code Code System A FIB active 49211817 SNOMED-CT Allergies and Adverse Reactions Allergy Substance Reaction Severity Start Date Concern Status Co de Code System No Known Drug Allergies Moderate Active 730100431 SNOMED-CT Plan of Treatment US Venous Right LE (29942) 08/09/2023 Pulmonary Function Test 10/07/2023 CT Chest/Lung WO Contrast (07004) 10/06 Pulmonary Function Test 10/07/2023 CT Chest/Lung WO Contrast (34454) 10/06 Encounters Encounter Diagnosis Start Date Code Code Sys tem Radiculopathy, cervical region 04/05/2024 SNOMED-CT Personal Care Team Section Performer Name Performer Role Active Date Inactive Da te
--- OUTSIDE RECORDS SUMMARY | 2024-11-15 01:09 | XMS_ITS ---
Author Organization Unknown Address [address] [place] [address] [phone] Phone Care Team Providers Care Executive Community Planning Name Role Phone KEVIN Moe Attending Unavailable TRENTON LINARES Primary Unavailable Immunization [...] em Smoking History Never smoker (Never Smoked) 020591229 SNOMED CT Smoking History Former smoker 3990986 SNOMED CT Sex Female Medications Medication Start Date End Date Route Frequency Dose Code Code System Medication Instructions Home Meds Eliquis 2.5MG Oral Tablet 08/30/2017 Unknown ORAL EVERY 12 HOURS 5 MILLIGRAMS 3486094 RxNorm TAKE 5 MILLIGRAMS ORAL EVERY 12 HOURS Metoprolol Tartrate 25MG Oral Tablet 08/30/2017 Unknown ORAL EVERY 12 HOURS 25 MILLIGRAMS 015285 RxNorm TAKE 25 MILLIGRAMS ORAL EVERY 12 HOURS Acetaminophen- diphenhydrAMIN E HCl 500MG-25MG Oral Tablet 08/30/2017 Unknown ORAL NEEDED AT BEDTIME 1 TABLET 6581293 RxNorm TAKE 1 TABLET ORAL NEEDED AT BEDTIME Celecoxib 200MG Oral Capsule 08/30/2017 Unknown ORAL DAILY WITH MEAL 200 MILLIGRAMS 739448 RxNorm TAKE 200 MILLIGRAMS ORAL DAILY WITH MEAL Losartan Potassium-hydr oCHLOROthiazid e 100MG-12.5MG Oral Tablet 08/30/2017 Unknown ORAL ONCE A DAY 0.5 TABLET 407839 RxNorm TAKE 0.5 TABLET ORAL ONCE A DAY Pantoprazole Sodium 40MG Oral Tablet, Enteric Coated 08/30/2017 Unknown ORAL EVERY 12 HOURS 40 MILLIGRAMS 178660 RxNorm TAKE 40 MILLIGRAMS ORAL EVERY 12 HOURS Terazosin HCl 2MG Oral Capsule 08/30/2017 Unknown ORAL AT BEDTIME 2 MILLIGRAMS 984777 RxNorm TAKE 2 MILLIGRAMS ORAL AT BEDTIME VESIcare 10MG Oral Tablet 08/30/2017 Unknown ORAL ONCE A DAY 10 MILLIGRAMS 319676 RxNorm TAKE 10 MILLIGRAMS ORAL ONCE A [...] Status Code Code System A FIB active 38342625 SNOMED-CT Allergies and Adverse Reactions Allergy Substance Reaction Severity Start Date Concern Status Co de Code System No Known Drug Allergies Moderate Active 290714801 SNOMED-CT Plan of Treatment US Venous Right LE (00224) 08/09/2023 Pulmonary Function Test 10/07/2023 CT Chest/Lung WO Contrast (27605) 10/06 Pulmonary Function Test 10/07/2023 CT Chest/Lung WO Contrast (07650) 10/06 Personal Care Team Section Performer Name Performer Role Active Date Inactive Da te
--- OUTSIDE RECORDS SUMMARY | 2024-11-15 01:10 | XMS_ITS | Clinical Summary ---
Author Organization [facility] Address Formerly [facility] [place] [address] Care Team Providers Care Facility Planner Name Role Phone Adonay Chase MD Primary Care Provider [phone] Madi Mccloud MD Unavailable Davide Montaño MD Unavailable Shelton Rivas MD Unavailable [phone] Cristina Gonzales APRN, NP-C Unavailable Wade Trevizo MD Unavailable [phone] Moustapha Mccabe MD Unavailable Saad Handy MD Unavailable [phone] Allergies Active Allergy Reactions Criticality Noted [...] Post-operative state 07/06/2021 PFO (patent foramen ovale) ([facility]) 08/10/2018 Mixed hyperlipidemia 03/16/2018 Sinus node dysfunction ([facility]) 018 Chronic anticoagulation 09/29/2017 Paroxysmal atrial fibrillation ([facility]) 09/06/2017 Essential (primary) hypertension 09/06/2017 STEVEN (obstructive sleep apnea) 09/06/2017 Resolved Problems Problem Noted Date Diagnosed Date Resolved Date Preop cardiovascular exam 06/11/2021 Preoperative clearance 08/10/201804/11 Chest pain 09/06/2017 04/11/2020 Shortness of breath 09/06/2017 04/11/20 20 Essential hypertension, benign 04/11/2020 Atrial fibrillation ([facility]) 01/05/2018 Encounters Date Type Department Care Team Description 10/17/2024 [facility] [address] [place] [address] Cristina Gonzales, SENIOR INFORMATICA DEVELOPER, ASSEMBLER RUBBER FOOTWEAR-C Other from Last 3 Months Immunizations Immunization Administration Dates Next Due MODERNA COVID-19 (COLLEGE DIRECTOR DELFINO MALKA), MRNA, LNP-S, PF, 50 MCG/ [...] Sex Assigned at Female 08/14/2024 1:38 PM LOGISTICIAN Legal Sex Female 8:33 PM CDT Gender Identity Not on file Sexual Orientation Not on file Occupation Industry Job Start Date Job End Date Not on file Not on file Not on file Not on file Last Filed Vital Signs Vital Sign Reading Time Taken Comments Blood Pressure 134/76 08/14/2024 1:54 PM LOGISTICIAN Pulse 63 08/14/2024 1:54 PM LOGISTICIAN Temperature 36.4 C (97.5 F) 02/05/2022 12:19 PM CDT Respiratory Rate 18 08/14/2024 1:54 PM LOGISTICIAN Oxygen Saturation 99% 08/14/2024 1:54 PM LOGISTICIAN Inhaled Oxygen Concentration - - Weight 94.9 kg (209 lb 3.2 oz) 08/14/2024 1:54 P M LOGISTICIAN Height 167.6 cm (5' 6 ) 08/14/2024 1:54 PM LOGISTICIAN Body Mass Index 33.77 08/14/2024 1:54 PM LOGISTICIAN Plan of Treatment Upcoming Encounters Date Type Department Care Team (Late st Contact Info) Description 08/22/2025 2:30 PM LOGISTICIAN Office Visit [facility] eld [address] [place] [phone] Cristina Gonzales, SENIOR INFORMATICA DEVELOPER, ASSEMBLER RUBBER FOOTWEAR-C [address] [facility] [address] [place] [address] Health Maintenance Due Date Last Done Comments Hepatitis C 1963 DTaP, Tdap and Td Vaccines ( 1 - Tdap) 1964 Annual Medicare Wellness Visit 2011 Dexa Scan (General) 2011 Pneumococcal Vaccine: 50+ Years (2 of 2 - PPSV23) 03/17/2016 01/21/2016 RSV Immunization or 60+ Years (1 - 1-dose 75+ series) 2021 COVID-19 Vaccine (2023-2 5 season) 2024 06/01/2021, 10/31/2020, 10/03/2020 Zoster Vaccines Completed 07/12/2020, 04/22/2020, 12/13/2012 Meningococcal [...] home upon discharge General No Dianelys Silva, GUEVARA Medical Devices Implanted Type Area Mobile Sales Technician Device Identifier Shelf Expiration Date Model / Serial / Lot Graft Bone Bonus Triad Cancellous Cortical 1cc Allograft - [id number] Implanted:Qty: 1 on 07/06/2021 by Ramses Guerra MD at [facility] Bone N/A: Spine Lumbar [employer] 12/21/2025 [id number] / / Cv Synergy 4.0mm X 24mm Julian Mid Rca-02/05/2022 Implanted:02/05 by Chapito Guerrero MD (Quantity not on file) Stent Coronary RCA [employer] ABDIFATAH 09/28/2023 [id number] / / [id number] F3d Straight, Cage Implanted:Qty: 1 on 07/06/2021 by Ramses Guerra MD at [facility] N/A: Spine Lumbar NEW AGE MEDICAL [id number] 06/04/2025 [id number] / / [id number] F3d Straight, Cage Implanted:Qty: 1 on 07/06/2021 by Ramses Guerra MD at [facility] N/A: Spine Lumbar NEW AGE MEDICAL [id number] 09/30/2025 [id number] / / [id number] Mis Set Screw Implanted:Qty: 6 on 07/06/2021 by Ramses Guerra MD at [facility] N/A: Spine Lumbar NEW AGE MEDICAL [id number] / / Mis Cortical Poly Screw 6.5 X 45mm Implanted:Qty: 6 on 07/06/2021 by Ramses Guerra MD at [facility] N/A: Spine Lumbar NEW AGE MEDICAL [id number] / / Mis Abimael 55mm Implanted:Qty: 2 on 07/06/2021 by Ramses Guerra MD at [facility] N/A: Spine Lumbar NEW AGE MEDICAL [id number] / / Explanted Type Area Mobile Sales Technician Device Identifier Shelf Expiration Date Model / Serial / Lot 1.4mm K-Wire Explanted:Qty: 1 on 07/06/2021 by Ramses Guerra MD at [facility] N/A: Spine Lumbar NEW AGE MEDICAL NAM-GUIDEW TRACY-SS-[id number] / / Insurance RAILROAD MEDICARE BLUE [facility] RAILROAD MEDICARE Advance Directives * Full Code (Latest Code Status on File) Date Activated Date Inactivated Comments 02/05/2022 3:36 PM 02/05/2022 8:42 PM * Full Code Date Activated Date Inactivated Comments 07/06/2021 12:22 PM 07/08/2021 4:55 PM Care Teams Facility Planner Relationship Specialty Start Date End Date Adonay Chase MD [address] [place] [address] PCP - General INTERNAL MEDICINE 03/29/16 Madi Mccloud MD [address] [place] [phone] EP Director Of Sales Support CLINICAL CARDIAC ELECTROPHYSIOLOGY 09/29/17 Davide Montaño MD [address] [place] [phone] Pain Medicine 10/14/20 Shelton Rivas MD [address] [place] [address] Consulting Physician CARDIOVASCULAR DISEASE 11/11/21 Cristina Gonzales, GABY, ASSEMBLER RUBBER FOOTWEAR-C [address] [place] [address] NURSE PRACTITIONER 11/11/21 Wade Trevizo MD [address] [phone] ORTHOPAEDIC SURGERY 04/15/23 Moustapha Mccabe MD [address] [address] Consulting Physician INTERNAL MEDICINE 08/05/23 Saad Handy MD [address] [address] INTERVENTIONAL CARDIOLOGY 04/18/24
--- OUTSIDE RECORDS SUMMARY | 2024-11-15 01:10 | XMS_ITS ---
Author Organization Unknown Address [address] [place] [address] [phone] Phone Care Team Providers Care Manager Personnel Selection Name Role Phone TRENTON LINARES Attending Unavailable [...] DIFF - Collect Date/ Time: 09/05/2024 07:36 [facility] ID: [id number] [address] [place] [address], [phone] LOINC: 58696-2 Test Value Unit Reference Range Code Code System Flag WBC 7.7 10^3uL L=4.8 H=10.8 RBC 4.71 10^6uL L=4.20 H=5.40 HEMOGLOBIN 13.4 g/dL L=12.0 H=16.0 718-7 LOINC HEMATOCRIT 43.4 VOL% L=37.0 H=47.0 4544-3 LOINC MCV 92.1 fL L=81.0 H=99.0 MCH 28.5 pg L=27.0 H=32.0 MCHC 30.9 g/dL L=32.0 H=36.0 L PLATELETS 223 10^3uL L=100 H=400 65388-6 LOINC RDW 15.1 % L=11.7 H=15.5 IRON PANEL - Collect Date/Ti me: 09/05/2024 07:36 [facility] ID: [id number] [address] [place] [address], [phone] LOINC: Test Value Unit Reference Range Code Code System Flag IRON 69 ug/dL L=37 H=170 2498-4 LOINC TIBC 403 ug/dL L=265 H=497 2500-7 LOINC %SATURATION 17 % L=13 H=45 2708-6 LOINC FERRITIN - Collect Date/Time : 09/05/2024 07:36 [facility] ID: [id number] [address] [place], [place], [phone] LOINC: 2276-4 Test Value Unit Reference Range Code Code System Flag FERRITIN 18.6 ng/mL L=11.1 H=264 2276-4 LOINC Social History Type Status Start Date End Date Code Code Syst em Smoking History Never smoker (Never Smoked) 663070410 SNOMED CT Smoking History Former smoker 2657538 SNOMED CT Sex Female Medications Medication Start Date End Date Route Frequency Dose Code Code System Medication Instructions Home Meds Eliquis 2.5MG Oral Tablet 08/30/2017 Unknown ORAL EVERY 12 HOURS 5 MILLIGRAMS 0243941 RxNorm TAKE 5 MILLIGRAMS ORAL EVERY 12 HOURS Metoprolol Tartrate 25MG Oral Tablet 08/30/2017 Unknown ORAL EVERY 12 HOURS 25 MILLIGRAMS 834220 RxNorm TAKE 25 MILLIGRAMS ORAL EVERY 12 HOURS Acetaminophen- diphenhydrAMIN E HCl 500MG-25MG Oral Tablet 08/30/2017 Unknown ORAL NEEDED AT BEDTIME 1 TABLET 6509541 RxNorm TAKE 1 TABLET ORAL NEEDED AT BEDTIME Celecoxib 200MG Oral Capsule 08/30/2017 Unknown ORAL DAILY WITH MEAL 200 MILLIGRAMS 774068 RxNorm TAKE 200 MILLIGRAMS ORAL DAILY WITH MEAL Losartan Potassium-hydr oCHLOROthiazid e 100MG-12.5MG Oral Tablet 08/30/2017 Unknown ORAL ONCE A DAY 0.5 TABLET 011948 RxNorm TAKE 0.5 TABLET ORAL ONCE A DAY Pantoprazole Sodium 40MG Oral Tablet, Enteric Coated 08/30/2017 Unknown ORAL EVERY 12 HOURS 40 MILLIGRAMS 996408 RxNorm TAKE 40 MILLIGRAMS ORAL EVERY 12 HOURS Terazosin HCl 2MG Oral Capsule 08/30/2017 Unknown ORAL AT BEDTIME 2 MILLIGRAMS 852579 RxNorm TAKE 2 MILLIGRAMS ORAL AT BEDTIME VESIcare 10MG Oral Tablet 08/30/2017 Unknown ORAL ONCE A DAY 10 MILLIGRAMS 666774 RxNorm TAKE 10 MILLIGRAMS ORAL ONCE A [...] Status Code Code System A FIB active 74848768 SNOMED-CT Allergies and Adverse Reactions Allergy Substance Reaction Severity Start Date Concern Status Co de Code System No Known Drug Allergies Moderate Active 884539017 SNOMED-CT Plan of Treatment US Venous Right LE (03678) 08/09/2023 Pulmonary Function Test 10/07/2023 CT Chest/Lung WO Contrast (52266) 10/06 Pulmonary Function Test 10/07/2023 CT Chest/Lung WO Contrast (14937) 10/06 Encounters Encounter Diagnosis Start Date Code Code Sys tem Iron deficiency anemia, unspecified 09/05/2024 SNOMED-CT Personal Care Team Section Performer Name Performer Role Active Date Inactive Da te
--- OUTSIDE RECORDS SUMMARY | 2024-11-15 01:10 | XMS_ITS | Encounter Summary ---
Author Organization [facility] Address [address] [place] [address] Care Team Providers Care Lens Coater Name Role Phone Adonay Chase MD Primary Care Provider [phone] Madi Mccloud MD Unavailable Davide Montaño MD Unavailable Shelton Rivas MD Unavailable [phone] Cristina Gonzales APRN, NP-C Unavailable Wade Trevizo MD Unavailable [phone] Moustapha Mccabe MD Unavailable Saad Handy MD Unavailable [phone] Encounter Details Date Type Department Care Team (Late st Contact Info) Description 08/12/2023 Abstract [facility] [address] [place] [address] Moustapha Mccabe MD [address] [facility], [address] [place] [address] Social History Tobacco Use Types Packs/Day Years Used Date Smoking Tobacco: Former Cigarettes Q uit: 1989 Smokeless Tobacco: Never Alcohol Use Standard Drinks/Week Comments No 0 (1 standard drink = 0.6 oz pur e alcohol) Comments Unknown Sex and Gender Information Value Date Recorded Sex Assigned at Female 08/14/2024 1:38 PM ANVIL SEATING PRESS OPERATOR Legal Sex Female 8:33 PM CDT Gender [...] Assessment Author Status No 07/06/2021 6:00 AM ANVIL SEATING PRESS OPERATOR Activ e * RETIRED Are you blind or do you have serious difficulty seeing, even when wearing glasses? Answer Date of Assessment Author Status No 07/06/2021 6:00 AM ANVIL SEATING PRESS OPERATOR Activ e * Do you have serious [...] Upcoming Encounters Date Type Department Care Team ([facility] st Contact Info) Description 08/22/2025 2:30 PM ANVIL SEATING PRESS OPERATOR Office Visit [facility] eld [address] [place] [address] Cristina Gonzales, ADULT SECONDARY EDUCATION INSTRUCTOR, PHOTOVOLTAIC INSTALLER-C [address] [facility] [address] [place] [phone] documented as of this encounter Goals Goal [...] * CBC, AUTO, NO DIFF (08/04/2023) Pathologist [facility] WBC 9.7 RBC 3.87 HGB 10.3 HCT 34.2 MCV 88.4 MCH 26.6 MCHC 30.1 RDW 14.2 PLT 247 08/04/2023 us Default History Genericprovider LABORATORY Final Result * CRP (OUTSIDE LAB) (08/04/2023) Pathologist [facility] CRP 5.0 08/04/2023 us Default History Genericprovider LAB-OUTSIDE/ABST RACTED Final Result * SED RATE, ERYTHROCYTE, AUTO (08/04/2023) Pathologist [facility] SED RATE 28 08/04/2023 us Default History Genericprovider LABORATORY Final Result documented in this encounter Visit Diagnoses Not on filedocumented in this encounter Care Teams Lens Coater Relationship Specialty Start Date End Date Adonay Chase MD [address] [place] [address] PCP - General INTERNAL MEDICINE 03/29/16 Madi Mccloud MD [address] [place] [phone] EP Canceling And Cutting Control Clerk CLINICAL CARDIAC ELECTROPHYSIOLOGY 09/29/17 Davide Montaño MD [address] [place] [address] Pain Medicine 10/14/20 Shelton Rivas MD [address] [place] [phone] Consulting Physician CARDIOVASCULAR DISEASE 11/11/21 Cristina Gonzales, ADULT SECONDARY EDUCATION INSTRUCTOR, PHOTOVOLTAIC INSTALLER-C [address] [facility] [address] [place] [address] NURSE PRACTITIONER 11/11/21 Wade Trevizo MD [address] [place] [address] ORTHOPAEDIC SURGERY 04/15/23 Moustapha Mccabe MD [address] [place] [address] [phone] Consulting Physician INTERNAL MEDICINE 08/05/23 Saad Handy MD [address] [place] [address] [phone] INTERVENTIONAL CARDIOLOGY 04/18/24 documented as of this encounter
--- OUTSIDE RECORDS SUMMARY | 2024-11-15 01:10 | XMS_ITS | Encounter Summary ---
Author Organization [facility] Address [address] [place] [address] Care Team Providers Care Front Desk Auxiliary Name Role Phone Adonay Chase MD Primary Care Provider [phone] Madi Mccloud MD Unavailable Davide Montaño MD Unavailable Shelton Rivas MD Unavailable [phone] Cristina Gonzales APRN, NP-C Unavailable Wade Trevizo MD Unavailable [phone] Moustapha Mccabe MD Unavailable Saad Handy MD Unavailable [phone] Encounter Details Date Type Department Care Team (Late st Contact Info) Description 01/27/2022 Pre-Procedure Call [facility] Pre/Post [address] [place] [address] Shelton Rivas MD [address] [place] [phone] Social History Tobacco Use Types Packs/Day Years Used Date Smoking Tobacco: Former Cigarettes Q uit: 1989 Smokeless Tobacco: Never Alcohol Use Standard Drinks/Week Comments No 0 (1 standard drink = 0.6 oz pur e alcohol) Comments Unknown Sex and Gender Information Value Date Recorded Sex Assigned at Female 08/14/2024 1:38 PM EDUCATION AND TRAINING MANAGER Legal Sex Female 8:33 PM CDT Gender Identity Not on file Sexual Orientation Not on file Occupation Industry Job Start Date Job End Date Not on file Not on file Not on file Not on file COVID-19 Exposure Response Date Recorded In the last 10 days, have parrish u been in contact with someone who was confirmed or suspected to have Coronavirus/COVID-19? No / Unsure 01/18/2022 9:45 AM CDT documented as of this encounter Functional Status * RETIRED Are you deaf or do you have serious difficulty hearing Answer Date of Assessment Author Status No 07/06/2021 6:00 AM EDUCATION AND TRAINING MANAGER Activ e * RETIRED Are you blind or do you have serious difficulty seeing, even when wearing glasses? Answer Date of Assessment Author Status No 07/06/2021 6:00 AM EDUCATION AND TRAINING MANAGER Activ e * Do you have serious [...] st Contact Info) Description 08/22/2025 2:30 PM EDUCATION AND TRAINING MANAGER Office Visit [facility] eld [address] [place] [address] Cristina Gonzales, GABY, DIRECTOR CONSUMER AFFAIRS-C [address] [facility] [address] [place] [phone] documented as of this encounter Goals Goal Patient Goal Type Associated Problems Recent Progress Patient-Stated? Author Safety Patient/family will have appropriate support at home upon discharge General No Silva, Dianelys A, RN documented as of this encounter Visit Diagnoses Not on filedocumented in this encounter Care Teams Front Desk Auxiliary Relationship Specialty Start Date End Date Adonay Chase MD [address] [place] [phone] PCP - General INTERNAL MEDICINE 03/29/16 Madi Mccloud MD [address] [place] [phone] EP Assayer CLINICAL CARDIAC ELECTROPHYSIOLOGY 09/29/17 Davide Montaño MD [address] [place] [address] Pain Medicine 10/14/20 Shelton Rivas MD [address] [place] [phone] Consulting Physician CARDIOVASCULAR DISEASE 11/11/21 Cristina Gonzales APRN, DIRECTOR CON[employer]ER AFFAIRS-C [address] [place] [address] [phone] NURSE PRACTITIONER 11/11/21 Wade Trevizo MD [address] [phone] ORTHOPAEDIC SURGERY 04/15/23 Moustapha Mccabe MD [address] [address] Consulting Physician INTERNAL MEDICINE 08/05/23 Saad Handy MD [address] [phone] INTERVENTIONAL CARDIOLOGY 04/18/24 documented as of this encounter
--- OUTSIDE RECORDS SUMMARY | 2024-11-15 01:10 | XMS_ITS ---
Author Organization Unknown Address [address] [place] [phone] Phone Care Team Providers Care Attending Physician Name Role Phone TRENTON LINARES Attending Unavailable [...] Co llect Date/Time: 11/12/2023 12:30 [facility] ID: [id number] [place], [place], [phone] LOINC: 22544-8 Test Value Unit Reference Range Code Code System Flag UR SOURCE CLEAN CATCH 98160-7 LOINC COLOR YELLOW YELLOW 5778-6 LOINC CLARITY CLEAR CLEAR 14233-4 LOINC SPEC GRAVITY 1.025 1.000-1.030 5811-5 LOINC PH 6.0 5.0 - 6.5 5803-2 LOINC LEUK EST NEGATIVE NEGATIVE 5799-2 LOINC NITRATE NEGATIVE NEGATIVE PROTEIN NEGATIVE NEGATIVE 5804-0 LOINC GLUCOSE NEGATIVE NEGATIVE 46722-9 LOINC KETONES NEGATIVE NEGATIVE 35435-9 LOINC UROBILINOGEN 1.0 NEGATIVE 5818-0 LOINC BILIRUBIN NEGATIVE NEGATIVE 77099-6 LOINC BLOOD NEGATIVE NEGATIVE 74265-8 LOINC WBC 0-2 0 - 2 02803-5 LOINC RBC 0-2 0 - 2 48852-2 LOINC EPITHELIAL MANY RARE-FEW 26728-9 LOINC A BACTERIA FEW NONE SEEN 50701-6 LOINC MUCUS NONE SEEN NONE SEEN 8247-9 LOINC YEAST NOT PRESENT NOT PRESENT 11734-4 LOINC CASTS NONE SEEN 89427-2 LOINC CRYSTALS NONE SEEN 08733-6 LOINC MICROALBUMIN - Collect Date/ Time: 11/12/2023 12:30 [facility] ID: [id number] [place], [place], [phone] LOINC: 82093-1 Test Value Unit Reference Range Code Code System Flag MICROALBUMIN 15.3 mg/L L=0.0 H=16.7 35301-5 LOINC UR CREATININE 229.00 mg/dL L=30.00 H=125 2161-8 LOINC H MA/CR 6.7 mg/gCR CBC W/O DIFF - Collect Date/ Time: 11/12/2023 07:42 [facility] ID: [id number] [address] [place], [place], [phone] LOINC: 48810-4 Test Value Unit Reference Range Code Code System Flag WBC 6.7 10^3uL L=4.8 H=10.8 RBC 4.94 10^6uL L=4.20 H=5.40 HEMOGLOBIN 12.1 g/dL L=12.0 H=16.0 718-7 LOINC HEMATOCRIT 39.7 VOL% L=37.0 H=47.0 4544-3 LOINC MCV 80.4 fL L=81.0 H=99.0 L MCH 24.5 pg L=27.0 H=32.0 L MCHC 30.5 g/dL L=32.0 H=36.0 L PLATELETS 249 10^3uL L=100 H=400 84754-9 LOINC RDW 18.4 % L=11.7 H=15.5 H IRON PANEL - Collect Date/Ti me: 11/12/2023 07:42 [facility] ID: [id number] [address] [place] [address], [phone] LOINC: Test Value Unit Reference Range Code Code System Flag IRON 52 ug/dL L=37 H=170 2498-4 LOINC TIBC 446 ug/dL L=265 H=497 2500-7 LOINC %SATURATION 12 % L=13 H=45 2708-6 LOINC L CPK - Collect Date/Time: 07:42 [facility] ID: [id number] [address] [place] [address], [phone] LOINC: 2157-6 Test Value Unit Reference Range Code Code System Flag CPK 205 U/L L=30 H=170 2157-6 LOINC H T4 FREE - Collect Date/Time: 11/12/2023 07:42 [facility] ID: [id number] [address] [place] [address], [phone] LOINC: 3024-7 Test Value Unit Reference Range Code Code System Flag T4, FREE 0.82 ng/dL L=0.78 H=2.19 3024-7 LOINC FREE T3 - Collect Date/Time: 11/12/2023 07:42 [facility] ID: [id number] [address] [place] [address], [phone] LOINC: 3051-0 Test Value Unit Reference Range Code Code System Flag FREE T3 2.47 pg/mL L=2.77 H=5.27 3051-0 LOINC L PRO BNP - Collect Date/Time: 11/12/2023 07:42 [facility] ID: [id number] [address] [place] [address], [phone] LOINC: 13450-2 Test Value Unit Reference Range Code Code System Flag Pro BNP2 52 pg/mL L=0 N=9326 37864-3 LOINC HGB A1C -GLYCOHEMOGLOBIN - C ollect Date/Time: 11/12/2023 07:42 [facility] ID: [id number] [address] [place] [address], [phone] LOINC: 4548-4 Test Value Unit Reference Range Code Code System Flag HGBA1C 5.8 % 4548-4 LOINC TSH - Collect Date/Time: 07:42 [facility] ID: [id number] [address] [place] [address], [phone] LOINC: 02055-9 Test Value Unit Reference Range Code Code System Flag TSH. 2.770 uIU/L L=0.470 H=4.680 62038-2 LOINC LIPID PANEL - Collect Date/T isabelle: 11/12/2023 07:42 [facility] ID: [id number] [address] [place] [address], [id number] LOINC: 93883-0 Test Value Unit Reference Range Code Code System Flag FASTING NO CHOLESTEROL 156 mg/dL L=0 H=200 2093-3 LOINC TRIGLYCERIDE 155 mg/dL L=0 H=150 2571-8 LOINC H HDL 31 mg/dL L=40 H=60 2084-9 LOINC L LDL 104 mg/dL 2088- LOINC VITAMIN B-12 - Collect Date/ Time: 11/12/2023 07:42 [facility] ID: [id number] [address] [place] [address], [phone] LOINC: 2132-9 Test Value Unit Reference Range Code Code System Flag VITAMIN B12 311 pq/mL L=239 H=931 COMPREHENSIVE METABOLIC PANE L - Collect Date/Time: 11/12/2023 07:42 [facility] ID: [id number] [address] [place] [address], [phone] LOINC: 64722-2 Test Value Unit Reference Range Code Code [...] 8-9 LOINC ANION GAP 13 L=10 H=20 91571-8 LOINC OSMOLALITY 298 mOs/kG L=280 H=296 79939-1 LOINC H BUN/CREAT 31.4 3097-3 LOINC CALCIUM 9.3 mg/dL L=8.3 H=10.5 36793-8 LOINC AST 31 U/L L=15 H=46 1920-8 LOINC ALT 30 U/L L=9 H=72 1742-6 LOINC ALKALINE PHOS 110 U/L L=38 H=126 6768-6 LOINC TOTAL BILI 0.5 mg/dL L=0.2 H=1.3 1975-2 LOINC ALBUMIN 4.2 G/dL L=3.5 H=5.0 1751-7 LOINC TOTAL PROTEIN 7.2 g/L L=6.3 H=8.2 2885-2 LOINC A/G RATIO 1.4 09762-9 LOINC AGE 78 58276-1 LOINC eGFR NON-AFR 86 ml/min eGFR AFR AMER 104 ml/min Social History Type Status Start Date End Date Code Code Syst em Smoking History Never smoker (Never Smoked) 053359651 SNOMED CT Smoking History Former smoker 9768183 SNOMED CT Sex Female Medications Medication Start Date End Date Route Frequency Dose Code Code System Medication Instructions Home Meds Eliquis 2.5MG Oral Tablet 08/30/2017 Unknown ORAL EVERY 12 HOURS 5 MILLIGRAMS 3570755 RxNorm TAKE 5 MILLIGRAMS ORAL EVERY 12 HOURS Metoprolol Tartrate 25MG Oral Tablet 08/30/2017 Unknown ORAL EVERY 12 HOURS 25 MILLIGRAMS 524157 RxNorm TAKE 25 MILLIGRAMS ORAL EVERY 12 HOURS Acetaminophen- diphenhydrAMIN E HCl 500MG-25MG Oral Tablet 08/30/2017 Unknown ORAL NEEDED AT BEDTIME 1 TABLET 3680341 RxNorm TAKE 1 TABLET ORAL NEEDED AT BEDTIME Celecoxib 200MG Oral Capsule 08/30/2017 Unknown ORAL DAILY WITH MEAL 200 MILLIGRAMS 863754 RxNorm TAKE 200 MILLIGRAMS ORAL DAILY WITH MEAL Losartan Potassium-hydr oCHLOROthiazid e 100MG-12.5MG Oral Tablet 08/30/2017 Unknown ORAL ONCE A DAY 0.5 TABLET 460545 RxNorm TAKE 0.5 TABLET ORAL ONCE A DAY Pantoprazole Sodium 40MG Oral Tablet, Enteric Coated 08/30/2017 Unknown ORAL EVERY 12 HOURS 40 MILLIGRAMS 523762 RxNorm TAKE 40 MILLIGRAMS ORAL EVERY 12 HOURS Terazosin HCl 2MG Oral Capsule 08/30/2017 Unknown ORAL AT BEDTIME 2 MILLIGRAMS 500957 RxNorm TAKE 2 MILLIGRAMS ORAL AT BEDTIME VESIcare 10MG Oral Tablet 08/30/2017 Unknown ORAL ONCE A DAY 10 MILLIGRAMS 457493 RxNorm TAKE 10 MILLIGRAMS ORAL ONCE A [...] Status Code Code System A FIB active 24064156 SNOMED-CT Allergies and Adverse Reactions Allergy Substance Reaction Severity Start Date Concern Status Co de Code System No Known Drug Allergies Moderate Active 498618447 SNOMED-CT Plan of Treatment US Venous Right LE (68341) 08/09/2023 Pulmonary Function Test 10/07/2023 CT Chest/Lung WO Contrast (25349) 10/06 Pulmonary Function Test 10/07/2023 CT Chest/Lung WO Contrast (09939) 10/06 Encounters Encounter Diagnosis Start Date Code Code Sys tem 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
--- OUTSIDE RECORDS SUMMARY | 2024-11-15 01:10 | XMS_ITS ---
Author Organization Unknown Address [address] [place] [phone] Phone Care Team Providers Care Steam Presser Name Role Phone OSMAN Burch Attending Unavailable [...] Daniel Diaz M.D. MF: [email or web address] Report ID: [id number] Reading Location: [id number] Social History Type Status Start Date End Date Code Code Syst em Smoking History Never smoker (Never Smoked) 307646518 SNOMED CT Smoking History Former smoker 3387487 SNOMED CT Sex Female Medications Medication Start Date End Date Route Frequency Dose Code Code System Medication Instructions Home Meds Eliquis 2.5MG Oral Tablet 08/30/2017 Unknown ORAL EVERY 12 HOURS 5 MILLIGRAMS 2103832 RxNorm TAKE 5 MILLIGRAMS ORAL EVERY 12 HOURS Metoprolol Tartrate 25MG Oral Tablet 08/30/2017 Unknown ORAL EVERY 12 HOURS 25 MILLIGRAMS 316169 RxNorm TAKE 25 MILLIGRAMS ORAL EVERY 12 HOURS Acetaminophen- diphenhydrAMIN E HCl 500MG-25MG Oral Tablet 08/30/2017 Unknown ORAL NEEDED AT BEDTIME 1 TABLET 9259739 RxNorm TAKE 1 TABLET ORAL NEEDED AT BEDTIME Celecoxib 200MG Oral Capsule 08/30/2017 Unknown ORAL DAILY WITH MEAL 200 MILLIGRAMS 824118 RxNorm TAKE 200 MILLIGRAMS ORAL DAILY WITH MEAL Losartan Potassium-hydr oCHLOROthiazid e 100MG-12.5MG Oral Tablet 08/30/2017 Unknown ORAL ONCE A DAY 0.5 TABLET 151665 RxNorm TAKE 0.5 TABLET ORAL ONCE A DAY Pantoprazole Sodium 40MG Oral Tablet, Enteric Coated 08/30/2017 Unknown ORAL EVERY 12 HOURS 40 MILLIGRAMS 913948 RxNorm TAKE 40 MILLIGRAMS ORAL EVERY 12 HOURS Terazosin HCl 2MG Oral Capsule 08/30/2017 Unknown ORAL AT BEDTIME 2 MILLIGRAMS 494619 RxNorm TAKE 2 MILLIGRAMS ORAL AT BEDTIME VESIcare 10MG Oral Tablet 08/30/2017 Unknown ORAL ONCE A DAY 10 MILLIGRAMS 504829 RxNorm TAKE 10 MILLIGRAMS ORAL ONCE A [...] Status Code Code System A FIB active 66489179 SNOMED-CT Allergies and Adverse Reactions Allergy Substance Reaction Severity Start Date Concern Status Co de Code System No Known Drug Allergies Moderate Active 743060649 SNOMED-CT Plan of Treatment US Venous Right LE (44322) 08/09/2023 Pulmonary Function Test 10/07/2023 CT Chest/Lung WO Contrast (56856) 10/06 Pulmonary Function Test 10/07/2023 CT Chest/Lung WO Contrast (37937) 10/06 Encounters Encounter Diagnosis Start Date Code Code Sys tem Hip joint prosthesis present 11/25/2023 671708968 SNOMED-CT Personal Care Team Section Performer Name Performer Role Active Date Inactive Da te Imaging Narrative Notes
--- OUTSIDE RECORDS SUMMARY | 2024-11-15 01:11 | XMS_ITS ---
Author Organization Unknown Address [address] [place] [phone] Phone Care Team Providers Care Junior Web Designer Name Role Phone SAVANA ALVARADO PA-C Attending [...] DIFF - Collect Date/T isabelle: 08/04/2023 13:13 [facility] ID: [id number] [address] [place], [place], [phone] LOINC: 38983-0 Test Value Unit Reference Range Code Code System Flag WBC 9.7 10^3uL L=4.8 H=10.8 RBC 3.87 10^6uL L=4.20 H=5.40 L HEMOGLOBIN 10.3 g/dL L=12.0 H=16.0 718-7 LOINC L HEMATOCRIT 34.2 VOL% L=37.0 H=47.0 4544-3 LOINC L MCV 88.4 fL L=81.0 H=99.0 MCH 26.6 pg L=27.0 H=32.0 L MCHC 30.1 g/dL L=32.0 H=36.0 L PLATELETS 247 10^3uL L=100 H=400 43810-2 LOINC RDW 14.2 % L=11.7 H=15.5 %GRAN 71.9 % L=40.0 H=70.0 75645-2 LOINC H %LYMPH 16.0 % L=20.0 H=45.0 736-9 LOINC L %MONO 7.7 % L=2.0 H=10.0 37410-9 LOINC %EOS 3.7 % L=0.0 H=6.0 713-8 LOINC %BASO 0.5 % L=0.0 H=3.0 706-2 LOINC #NEUT 7.0 10^3uL L=1.9 H=7.6 98879-9 LOINC #LYMPH 1.6 10^3uL L=0.9 H=4.9 96829-5 LOINC #MONO 0.8 10^3uL L=0.1 H=0.9 89960-2 LOINC #EOS 0.4 10^3uL L=0.0 H=0.6 712-0 LOINC #BASO 0.05 10^3uL L=0.00 H=0.10 24454-9 LOINC #IM GRANS 0.0 10^3uL L=0.0 H=7.0 06023-9 LOINC %IM GRANS 0.2 % L=0.0 H=5.0 19822-3 LOINC %NRB 0.0 L=0.0 H=0.2 95535-8 LOINC #NRB 0.000 L=0.000 H=0.012 59141-4 LOINC MANUAL DIFF NOT INDICATED RBC MORPH NOT INDICATED CRP NON SPECIFIC - Collect D ate/Time: 08/04/2023 13:13 [facility] ID: [id number] [address] [place] [address], [phone] LOINC: 1987-11 Test Value Unit Reference Range Code Code System Flag CRP-NON SPECIFIC < 5.0 mg/L L=0.0 H=10.0 1987-11 LOINC SED RATE - Collect Date/Time : 08/04/2023 13:13 [facility] ID: [id number] [address] [place] [address], [id number] LOINC: Test Value Unit Reference Range Code Code System Flag SED RATE 28 mm/hr L=0 H=20 H US VENOUS RIGHT LE - Complet ed: 08/04/2023 13:21 LOINC: 98934-6 EXAM DESCRIPTION: US VENOUS RIGHT LE REASON [...] Ronan Galicia M.D. KR: KR Report ID: [id number] Reading Location: [id number] Social History Type Status Start Date End Date Code Code Syst em Smoking History Never smoker (Never Smoked) 727789431 SNOMED CT Smoking History Former smoker 5003225 SNOMED CT Sex Female Medications Medication Start Date End Date Route Frequency Dose Code Code System Medication Instructions Home Meds Eliquis 2.5MG Oral Tablet 08/30/2017 Unknown ORAL EVERY 12 HOURS 5 MILLIGRAMS 8839182 RxNorm TAKE 5 MILLIGRAMS ORAL EVERY 12 HOURS Metoprolol Tartrate 25MG Oral Tablet 08/30/2017 Unknown ORAL EVERY 12 HOURS 25 MILLIGRAMS 746912 RxNorm TAKE 25 MILLIGRAMS ORAL EVERY 12 HOURS Acetaminophen- diphenhydrAMIN E HCl 500MG-25MG Oral Tablet 08/30/2017 Unknown ORAL NEEDED AT BEDTIME 1 TABLET 0456492 RxNorm TAKE 1 TABLET ORAL NEEDED AT BEDTIME Celecoxib 200MG Oral Capsule 08/30/2017 Unknown ORAL DAILY WITH MEAL 200 MILLIGRAMS 547613 RxNorm TAKE 200 MILLIGRAMS ORAL DAILY WITH MEAL Losartan Potassium-hydr oCHLOROthiazid e 100MG-12.5MG Oral Tablet 08/30/2017 Unknown ORAL ONCE A DAY 0.5 TABLET 355864 RxNorm TAKE 0.5 TABLET ORAL ONCE A DAY Pantoprazole Sodium 40MG Oral Tablet, Enteric Coated 08/30/2017 Unknown ORAL EVERY 12 HOURS 40 MILLIGRAMS 252489 RxNorm TAKE 40 MILLIGRAMS ORAL EVERY 12 HOURS Terazosin HCl 2MG Oral Capsule 08/30/2017 Unknown ORAL AT BEDTIME 2 MILLIGRAMS 263052 RxNorm TAKE 2 MILLIGRAMS ORAL AT BEDTIME VESIcare 10MG Oral Tablet 08/30/2017 Unknown ORAL ONCE A DAY 10 MILLIGRAMS 953292 RxNorm TAKE 10 MILLIGRAMS ORAL ONCE A [...] Status Code Code System A FIB active 16590908 SNOMED-CT Allergies and Adverse Reactions Allergy Substance Reaction Severity Start Date Concern Status Co de Code System No Known Drug Allergies Moderate Active 606945858 SNOMED-CT Plan of Treatment US Venous Right LE (91001) 08/09/2023 Pulmonary Function Test 10/07/2023 CT Chest/Lung WO Contrast (86166) 10/06 Pulmonary Function Test 10/07/2023 CT Chest/Lung WO Contrast (31402) 10/06 Encounters Encounter Diagnosis Start Date Code Code Sys tem Localized edema 08/04/2023 SNOMED-CT Personal Care Team Section Performer Name Performer Role Active Date Inactive Da te Imaging Narrative Notes
[2024-11-15] MEDS: ACETAMINOPHEN 500 MG TABLET 1000 MG PO (06:45)
[2024-11-15] MEDS: LACTATED RINGERS 1,000 ML 30 ML IV CONT ×2 (06:45→10:05)
[2024-11-15] MEDS: TRANEXAMIC ACID 1,000MG/ISO100 1,000 MG/100 ML BAG 200 MG IVPB (06:45)
--- NOTE | 2024-11-15 07:10 | P.PNAN_ITS ---
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 Patient Data Age: 79 Gender: F Height: 1.64 m Weight: 95.2 kg Last Vital Signs Temp 96.8 F L 11/15/24 06:45 Pulse 65 11/15/24 06:45 Resp 14 11/15/24 06:45 BP 169/73 H 11/15/24 06:45 Pulse Ox 100 11/15/24 06:45 O2 Del Method Room Air 11/15/24 06:45 Allergies Allergy/AdvReac Type Severity Reaction Status Date / Time tramadol AdvReac Intermediate EUPHORIA Verified 10/17/24 09:53 ciprofloxacin AdvReac Unknown Diarrhea Verified 10/17/24 09:53 Home Medications ?Medication ?Instructions ?Recorded ?Confirmed ?Type apixaban 5 mg tablet (Eliquis) 5 mg PO BID 12/16/22 10/18/24 History celecoxib 200 mg capsule 200 mg PO DAILY 12/16/22 10/18/24 History ezetimibe 10 mg tablet 10 mg PO DAILY 12/16/22 10/18/24 History levothyroxine 50 mcg capsule 50 mcg PO DAILY 12/16/22 10/18/24 History losartan 50 mg-hydrochlorothiazide 1 tablet PO DAILY 12/16/22 10/18/24 History 12.5 mg tablet pantoprazole 40 mg tablet,delayed 40 mg PO BID 12/16/22 10/18/24 History release pravastatin 40 mg tablet 40 mg PO HS 12/16/22 10/18/24 History pumpkin seed extract-soy germ 300 1 cap PO BID 12/16/22 10/18/24 History mg capsule (Azo Bladder Control) aspirin 81 mg tablet,delayed 81 mg PO DAILY 05/05/23 10/18/24 History release (Adult Low Dose Aspirin) diphenhydramine 25 1 tablet PO HS PRN Insomnia 05/05/23 10/18/24 History mg-acetaminophen 500 mg tablet (Tylenol PM Extra Strength) cephalexin 500 mg capsule 500 mg PO Q8H #60 caps 07/02/23 10/18/24 Rx diltiazem HCl 180 mg 180 mg PO DAILY 05/30/24 10/18/24 History capsule,extended release 24 hr (Cartia XT) acetaminophen 500 mg tablet 1,000 mg PO Q6H PRN pain 10/17/24 10/17/24 History (Acetaminophen Extra Strength) dabigatran etexilate 150 mg capsule 150 mg PO BID 10/17/24 10/17/24 History trazodone 50 mg tablet 50 mg PO HS 10/17/24 10/17/24 History Patient hx anesthesia problems: none Family hx anesthesia problems: none Results Review: All pre-operative results and documents have been reviewed as part of the pre- operative evaluation. [facility] Past Medical History Medical History Hypothyroidism CAD (coronary artery disease) History of bruising easily History of stress test Hyperlipidemia Hypertension Afib Surgical History Surgical History History of hip surgery (~07/01/23) I&D Rt Hip w/Polyethylene Liner & Femoral Head Exchange History of coronary artery stent placement 2021 History of total replacement of right hip (~05/30/23) History of total right knee replacement (~09/05/18) History of back surgery (~07/2022) Family History Family History Mother Family history of diabetes mellitus in first degree relative Heart disease Cancer Social History Social History Smoking packs per day: 0.5 Smoking cigarettes per day: 10.0 Years smoked: 5 Smoking pack-years: 2.50 Smoking status: Former smoker Tobacco type: cigarettes Second hand tobacco smoke exposure: No Smoking end date: 08/01/79 Additional smoking assessment comments: DENIES ANY FORM OF TOBACCO USE Alcohol intake: never Substance use: never Substance use type: does not use Do You Feel Safe in your Home?: Yes Lack of Transportation: No Lack of Food: Never True Current Housing: I Have Housing Concerned About Future Housing: No Difficulty Paying Gas/Electric Bills: No Difficulty Paying for Meds: No Currently Unemployed: No Education: High School Diploma/GED Difficulty w/ Childcare or Family Care: No Living arrangements: alone Spiritual care concerns: No Anes - Eval Final PreProcedure Day of Procedure 11/15/24 07:10 Patient weight: obese Lungs: normal air movement Airway: Mallampati scale class II Neurological: alert and oriented Last oral intake: >/= 8 hours ASA classification: III Emergent: no Anesthetic plan: proceed Anesthesia type and monitoring: general ETT and standard monitoring Results Review: All pre-operative results and documents have been reviewed as part of the pre- operative evaluation. HTN, hyperlipidemia, hypothyroidism, hx of Pafib x 1, (AC held for this). Pt had PTCA to RCA 2021 and 50% stenosis LAD and has been doing well since. Cardiology note reviewed and appreciated and cleared for this surgery. Long time ex smoker. Informed Consent: The patient's anesthetic plan and its attendant risks and benefits were discussed with the patient/family/POA. Questions were solicited and answers provided to the satisfaction of the patient/family/POA.
--- NOTE | 2024-11-15 07:14 | WPDHPUPDATE1 ---
History and Physical Update Update Date/Time: 11/15/24 07:14 History and Physical has been reviewed, including an updated exam of the patient. There are NO changes in the patient's condition. Risks, benefits, and alternatives have been discussed and questions answered. Patient agrees to proceed with procedure.
[2024-11-15] MEDS: SODIUM CHLORIDE 0.9% IV 38.7 ML, ROPivacaine HCL 1% 200 MG, KETOROLAC INJ (*BKC) 15 MG,... INFILTRATE (07:57)
[2024-11-15] MEDS: VANCOMYCIN HCL 1,000 MG VIAL 1000 MG TOPICAL (07:59)
[2024-11-15] MEDS: ceFAZolin 2 GM/D5W 50 ML 2 GM/50 ML BAG IVPB (08:02)
--- NOTE | 2024-11-15 09:31 | P.OP_ITS ---
Procedure Note - Detailed Date of Procedure 11/15/24 Pre-op Diagnosis Primary oa right shoulder Post-op Diagnosis Same Procedure Performed Reverse total shoulder arthroplasty, right Surgeon Wade Trevizo MD Drywall Installer Judi Zelaya PA-C Anesthesia General Findings Large humeral osteophytes. Good bone quality. Posterior capsule was preserved tissue was fairly lax. Minimal glenoid reaming required. Postoperative templating indicated a correction of 10? inclination which was accomplished with a 10 degree augment and retroversion at 6? and this was corrected partially. Description of Procedure The patient was given an interscalene block in the preoperative area. Preoperative antibiotics were given. The patient was transferred to the operating room and a general anesthetic was administered. The beach chair position was used at 45 degrees. All bony prominences were padded. The head was carefully stabilized on the [facility] head worker. A sterile prep and drape was performed in the usual manner with ChloraPrep. A longitudinal incision was created at the anterior shoulder just lateral to the deltopectoral interval. Hydrogen peroxide was placed on the incision and then rinsed after one minute. Careful dissection was performed to expose the interval and protect the cephalic vein. The vein was retracted medially. The upper border of the pectoralis was released. Anterior circumflex vessel branches were suture ligated. The biceps was tenodesed. A subscapularis tenotomy was performed. The inferior capsule was released, exposing the humeral head. Osteophytes were removed. Care was taken to stay on bone to protect the axillary nerve. The anatomic head cut was taken with the oscillating saw. The guide pin was placed, central drilling performed, and the broach trial inserted. The neck anteversion and inclination were carefully assessed. The cut protector was placed, and attention was turned to the glenoid. Retractors were placed. Releases were carried out for exposure. The subscapularis was mobilized, the inferior capsule and long head of triceps released, and the superior and middle glenohumeral ligaments released as well. Labral tissue was resected as needed. Version and inclination were corrected ac cording to preoperative templating. The sizing template was used to assess the baseplate position low on the glenoid, with an approximate 5 degrees corrections of retroversion and 12 degrees of inclination. A guide pin was placed. Minimal reaming was used to accomplish a flat surface without violating the subchondral bone. The boss was drilled, and the real component was impacted into position. Supplemental locking screws were placed centrally, superiorly, and inferiorly. The glenosphere was impacted into the taper. The proximal humerus was reamed for the inset component. The humeral components were trialed. The real humeral stem, tray, and insert were impacted into position. The shoulder was copiously irrigated periodically with pulsatile lavage. The shoulder was reduced and stability confirmed. 1 gram of Vancomycin powder was placed in the joint. The remaining tissue was closed with 2-0 Vicryl, 3-0 Stratafix and 4-0 Stratafix, and steri-strips. A sterile silver occlusive dressing and shoulder immobilizer were placed. The patient was transferred to the recovery room. Physician oncology physician assistant, Judi Zelaya PA-C, required for surgery; including patient positioning, draping, tissue retraction, maintaining instrument position, wound closure, and dressing placement. Implants Shoulder [employer] reverse TSA size 0 stem. +0 polyethylene insert. 10 augmented baseplate. 33 +3 mm glenosphere. Estimated Blood Loss 100 Drains No Pathology None sent Complications No immediate complications Condition Stable Disposition PACU [facility] Billing Surgery - Charge Forward: Surgery Billing
[2024-11-15] MEDS: oxyCODONE HCL (*CRX) 5 MG TAB IR PO (11:29)
--- NOTE | 2024-11-15 11:50 | SUR.PHASEII ---
PT at bedside for therapy.
--- NOTE | 2024-11-15 13:09 | SUR.PHASEII ---
1225 - OT at bedside with patient.
== END 2024-11-15 13:27 | disposition home or self-care (01) ==
PROVIDERS: PCP Internal Medicine; Visit Provider Orthopaedic Surgery
PROC: (CPT 23472; principal; 2024-11-15 07:30)
DX: M19.011 Primary osteoarthritis, right shoulder (principal); Z87.891 Personal history of nicotine dependence; E66.9 Obesity, unspecified; Z68.35 Body mass index [BMI] 35.0-35.9, adult
CPT/HCPCS: 23472; 36415; 73030; 86850; 86900; 86901; 97110; 97161; 97165; 97535; A4565; A9270; C1776; J0171; J0690; J1100; J1885; J2003; J2270; J2405; J2704; J2795; J3010; J3370; J7120